=== PATIENT | male | born 1960 | race Caucasian/White ===

== ENCOUNTER 2024-05-13 14:29 | Emergency (ER) | payer MEDICARE, SELFPAY ==
[2024-05-13 14:45] VITALS: BP 142/67; PULSE 62; RESP 20; TEMP 36.8; O2SAT 92; BMI 38.0
--- NOTE | 2024-05-13 14:49 | ED_ITS ---
Discharge Plan Disposition Patient Disposition: Home, Self-Care Condition: Good Prescriptions Prescriptions: New amlodipine 5 mg tablet 5 mg PO DAILY Qty: 30 0RF mupirocin 2 % ointment 1 applic topical BID Qty: 22 0RF No Action amlodipine 5 mg tablet 5 mg PO DAILY Patient Comments: TAKE 1 DAILY Referrals Follow up/Referrals: Swapna Aguilera MD [Referring] - See instructions Provider,MD Jackie [Primary Care Provider] - See instructions Activity Restrictions/Add. Instructions Additional Instructions/Restrictions: clean site with 1/2 vinegar and 1/2 water twice daily. Keep site clean and dry. Make appointment with dermatology. Clinical Impressions Clinical Impression: Hypertension, Skin lesion of right external ear Instructions Patient Instructions: Essential Hypertension Discharge ED Provider: Nilam Andrew [facility] [place] HPI General Stated complaint: Out of BP med, RT ear pain Time Seen by Provider: 05/13/24 14:48 History of Present Illness Provider Complaint: Pt reports that he has had right ear pain and a lesion for the past 2 months. He states that the pain is bad and the site has not healed even with taking treatment for shingles. He also states that he is out of blood pressure medication. He is from [place] and has been up here buying property and ran out of medication. He states that he has refills, but is unable to get any while here. Related Data Home Medications Medication Instructions Recorded Confirmed amlodipine 5 mg tablet 5 mg PO DAILY 05/13/24 05/13/24 Previous Rx's Medication Instructions Recorded amlodipine 5 mg tablet 5 mg PO DAILY #30 tabs 05/13/24 mupirocin 2 % topical ointment 1 applic topical BID #22 grams 05/13/24 Allergies Allergy/AdvReac Type Severity Reaction Status Date / Time No Known Allergies Allergy Verified 05/13/24 15:05 [facility] Disclaimer: The information contained in this section may have been updated after the patient was seen, as this information can be updated by other users. Medical History (Updated 05/13/24 @ 15:08 by Nilam Andrew APRN) Hypertension Social History Smoking Status: Current every day smoker alcohol intake: current current occupational status: previously employed Travel in the last 8 weeks: Inside the [place] ROS Obtained: Yes All systems reviewed & no additional complaints except as documented Constitutional Constitutional: Reports system reviewed and no additional complaints, except as documented Eyes Eyes: Reports system reviewed and no additional complaints, except as documented ENT Ears, Nose, Mouth, and Throat: Reports system reviewed and no additional complaints, except as documented, Reports ear discharge and Reports otalgia Comments: Pt has been [place] all of his life. Cardiovascular Cardiovascular: Reports system reviewed and no additional complaints, except as documented and Reports lightheadedness Respiratory Respiratory: Reports system reviewed and no additional complaints, except as documented Gastrointestinal Gastrointestingal: Reports system reviewed and no additional complaints, except as documented Genitourinary Male Genitourinary: Reports system reviewed and no additional complaints, except as documented Musculoskeletal Musculoskeletal: Reports system reviewed and no additional complaints, except as documented Integumentary/Breasts Skin/Breast: Reports system reviewed and no additional complaints, except as documented Neurologic Neurologic: Reports system reviewed and no additional complaints, except as documented Endocrine Endocrine: Reports system reviewed and no additional complaints, except as documented Hematologic/Lymphatic Henatologic/Lymphatic: Reports system reviewed and no additional complaints, except as documented Allergic/Immunologic Allergic/Immunologic: Reports system reviewed and no additional complaints, except as documented Physical Exam General General appearance: alert and in no apparent distress Head Head exam: atraumatic and normocephalic Eye Eye exam: Present normal appearance Expanded ENT Exam External ear exam: Present pain with movement and other (right auricular mass noted. Dried blood around site.) Nasal speculum exam: Bilateral: normal Mouth exam: Present normal external inspection Teeth exam: Present normal inspection Throat exam: Present normal inspection Neck Neck exam: Present normal inspection Chest Chest inspection: Present normal inspection and symmetric chest wall rise Respiratory Respiratory exam: Present normal lung sounds bilaterally Cardiovascular Cardiovascular exam: Present regular rate and normal rhythm Abdominal Exam Abdominal exam: Present soft and normal bowel sounds Extremities Exam Extremities exam: Present normal inspection Back Exam Back exam: Present normal inspection Neurological Exam Neurological exam: Present alert and oriented X3 Psychiatric Psychiatric exam: Present normal affect and normal mood Skin Skin exam: Present warm, dry and intact Lymphatic Lymphatic Findings: no adenopathy Medical Decision Making Rosas Inquiry Pt receiving controlled substance: No Rosas was queried for this patient: No
[2024-05-13 15:10] VITALS: BP 142/67; PULSE 62; RESP 20; TEMP 36.8; O2SAT 92
== END 2024-05-13 15:17 | disposition home or self-care (01) ==
PROVIDERS: Emergency Provider Nurse Practitioner Family
DX: H61.91 Disorder of right external ear, unspecified (principal); I10 Essential (primary) hypertension; F17.210 Nicotine dependence, cigarettes, uncomplicated
CPT/HCPCS: 99204; 99212; G0463

== ENCOUNTER 2025-01-02 07:09 | Inpatient (IN) | payer MEDICARE, SELFPAY ==
[2025-01-02] VITALS (13 sets, daily range): BP systolic 107–154; BP diastolic 54–80; PULSE 71–105; RESP 18–36; TEMP 36.7–37.4; O2SAT 90–95; BMI 39.5
--- NOTE | 2025-01-02 07:05 | ECG_ITS ---
APPROVED REPORT Exam: Resting ECG HR:92 bpm ECG Measurements Heart Rate 92 AXES QRSd 88 QRS 79 QT 361 T 80 QTc 411 Conclusion Largely nondiagnostic exam. No obvious acute ischemic change Electronically signed by : BOLA AGUILERA, 01/03/2025 13:17:03
--- NOTE | 2025-01-02 07:18 | XR_ITS ---
PROCEDURE INFORMATION: Exam: XR Chest Exam date and time: 01/02/2025 7:36 AM Age: 64 years old Clinical indication: Shortness of breath; Additional info: SOA, prod cough TECHNIQUE: Imaging protocol: Radiologic exam of the chest. Views: 1 view. COMPARISON: No relevant prior studies available. FINDINGS: Lungs: Unremarkable. No consolidation. Pleural spaces: Unremarkable. No pleural effusion. No pneumothorax. Heart/Mediastinum: Unremarkable. No cardiomegaly. Bones/joints: Anterior cervical fusion . Degenerative changes in the thoracic spine IMPRESSION: No acute process
--- NOTE | 2025-01-02 07:38 | ED_ITS ---
Discharge Plan Disposition Patient Disposition: Admitted Chief Complaint: Shortness of Breath/Dyspnea Clinical Impressions Clinical Impression: Acute exacerbation of chronic obstructive pulmonary disease, Encounter for screening involving social determinants of health (SDoH) Discharge ED Provider: Kenny Nichole General Chief Complaint: Shortness of Breath/Dyspnea Stated Complaint: SOA Time Seen by Provider: 01/02/25 07:09 Mode of Arrival: EMS Source of Information: Patient Limitations: No Limitations Description of Symptoms (Recalled from ER Triage Doc. by RN): pt states he has been sick x4d. pt c/o SOA, nonproductive cough, ALVAREZ, dark/cloudy urine, lower back pain, and umbilical abd pain. pt states the ALVAREZ is sharp in nature and 10/10. pt reports the umbilical pain is 4/10. pt reports the lower back pain is 7/10. EMS reports the pt was 88% on RA on their arrival. pt is not on oxygen at baseline. pt received 1 duo neb in route. History of Present Illness HPI narrative: Please note that above description of symptoms, in this electronic medical record under categorization of recalled from ER triage doctor by RN are reflective of an initial nursing assessment, however, is not reflective of my full history and physical exam that was personally taken and clarified. Consequentially, this preceding description of symptoms, which may include the patient's categorized chief complaint in the EMR, do not reflect my personal clinical impression, and the ultimate description of history of present illness and patient stated complaints should be deferred to this section of the note. Unless stated otherwise or congruent with this section of the note, additional signs, symptoms, or incongruence should be interpreted as inaccurate with my clinical impression. Related Data Previous Rx's ?Medication ?Instructions ?Recorded amlodipine 5 mg tablet 5 mg PO DAILY 30 days #30 tabs 08/04/24 Allergies Allergy/AdvReac Type Severity Reaction Status Date / Time No Known Allergies Allergy Verified 01/02/25 07:22 [facility] Disclaimer: The information contained in this section may have been updated after the patient was seen, as this information can be updated by other users. Medical History (Updated 01/02/25 @ 09:39 by Kenny Nichole MD) Skin lesion of left ear History of skin cancer Meningitis Skin lesion of right external ear Hypertension Surgical History History of lymph node excision History of total splenectomy History of back surgery Social History (Updated 01/02/25 @ 09:33 by Golden Wilhelm RN) Smoking Status: Never smoker second hand exposure: No alcohol intake: current substance use type: marijuana current occupational status: previously employed Travel in the last 8 weeks: Inside the [place] housing: house lives independently: Yes marital status: single Have you lived/traveled outside US in past 30 days?: No Contact w/someone who lives/traveled outside US past 30 days?: No Exposure to someone with infectious disease in past 14 days?: No Do you have a fever (greater than 100.4 F or 38 C)?: No Have you tested positive for COVID-19: No Exposed to someone with COVID-19 in past 14 days?: No Do you have a sore throat?: No Do you have a cough?: No Do you have any weakness?: No Do you have any diarrhea?: No Are you experiencing any unusual bleeding?: No Do you have any muscle aches/pain?: No Do you have any abdominal pain?: No Are you experiencing loss of taste or smell?: No Other Medical History Have you received the Pneumonia Vaccine: Yes ROS Obtained: Yes All systems reviewed & no additional complaints except as documented Physical Exam General General appearance: alert, in distress and obese Neck Neck exam: Present trachea midline Chest Chest inspection: Present normal inspection and symmetric chest wall rise Respiratory Respiratory exam: Present respiratory distress, wheezes, accessory muscle use, prolonged expiratory phase and other (Grunting, speaking in partial sentences, tachypneic); Absent stridor Cardiovascular Cardiovascular exam: Present regular rate, normal rhythm and other (Pulses equal and symmetric in upper and lower extremities) Extremities Exam Extremities exam: Absent edema Neurological Exam Neurological exam: Present alert, oriented X3 and CN II-XII intact Skin Skin exam: Present warm and dry; Absent cyanosis, diaphoresis or pallor HEART Score HEART Score HEART Score assessment performed?: Yes History (anamnesis): Slightly suspicious ECG: Non-specific disturbance Age: >65 years Risk factors: 1-2 risk factors Troponin: </= normal limit HEART Score: 4 Procedures Limited Ultrasound Indication:: Limited cardiac ultrasound Indication: Shortness of breath, tachycardia, diaphoresis Identified cardiac views: -Cardiac parasternal long axis -Cardiac parasternal short axis -Cardiac apical four-chamber Findings: -Cardiac activity present -Gross wall motion normal -Pericardial effusion absent -Right heart strain absent Impression: -Normal cardiac ultrasound with normal systolic function Images were saved to permanent archive The study was technically adequate CPT: 60746 This study was performed by me, and I personally interpreted all images/videos. Based on my clinical judgement, these images were adequate and did not necessitate further imaging Critical Care Critical Care Time Critical Care Time: Yes (Respiratory) Attestation: On 01/02/25, the high probability of a clinically significant, sudden or life threatening deterioration of the following system(s) required my full and direct attention, intervention and personal management. The time I documented below is in addition to time spent performing reported procedures but includes the following listed in this critical care notation. Total Time Total Critical Care Time: 45 Medical Decision Making Medical Records Medical records reviewed: Yes I reviewed the patient's medical records. Rosas Inquiry Pt receiving controlled substance: No Rosas was queried for this patient: No Vital Signs Vital Signs: 01/02/25 07:12 01/02/25 07:36 01/02/25 08:01 Temperature 98.8 F Temperature Source Oral Pulse Rate 86 99 H Pulse Rate [Left] 74 Respiratory Rate 32 H 26 H 34 H Blood Pressure 141/68 H 140/79 Blood Pressure [Right Arm] 150/80 H Blood Pressure Mean [Right Arm] 103 Blood Pressure Source [Right Arm] Automatic Cuff Blood Pressure Position [Right Arm] Sitting 02 Sat by Pulse Oximetry 94 L 94 L 92 L Oxygen Delivery Method Nasal Cannula Nasal Cannula Nasal Cannula Oxygen Flow Rate (LPM) 3 2 2 01/02/25 08:30 01/02/25 09:01 Temperature Temperature Source Pulse Rate 96 H 105 H Pulse Rate [Left] Respiratory Rate 27 H 36 H Blood Pressure 153/76 H 154/73 H Blood Pressure [Right Arm] Blood Pressure Mean [Right Arm] Blood Pressure Source [Right Arm] Blood Pressure Position [Right Arm] 02 Sat by Pulse Oximetry 91 L 95 Oxygen Delivery Method Nasal Cannula Nasal Cannula Oxygen Flow Rate (LPM) 1 2 Lab Data Labs: Lab Results 01/02/25 07:36: WBC 12.8 H, RBC 5.06, Hgb 15.8, Hct 48.1, MCV 95.1 H, MCH 31.2, MCHC 32.8, RDW 13.0, Plt Count 373, MPV 9.3, Neut % (Auto) 75.2, Lymph % (Auto) 7.5 L, Haines % (Auto) 16.3 H, Eos % (Auto) 0.2, Baso % (Auto) 0.4, Neut # (Auto) 9.7 H, Lymph # (Auto) 1.0, Haines # (Auto) 2.1 H, Eos # (Auto) 0.0, Baso # (Auto) 0.1, PT 10.4, INR 0.94, APTT 27.6, D-Dimer 0.39, Hemoglobin A1c 6.4 H, Magnesium 1.9, NT-Pro-B Natriuret Pep 285 H, Triglycerides 52, Cholesterol 163, LDL Cholesterol Direct 110.48, VLDL Cholesterol 10, HDL Cholesterol 30 L, C holesterol/HDL Ratio 5.4 H, HCV Ab KRYSTINA w/Rflx PCR Qn Negative, HIV Ag/Ab Combo Qual Negative 01/02/25 07:40: VBG pH 7.38, VBG pCO2 41.4, VBG pO2 48.5 H, VBG HCO3 24.1, VBG Total CO2 25.4, VBG O2 Saturation 84.9 H, VBG Base Excess -1.0, VBG Lactic Acid 1.3 01/02/25 07:36 01/02/25 Unknown Response Orders (Tests/Meds): ED MEDICATIONS Discontinued Medications Generic Name Dose Route Start Last Admin Trade Name Khurramq PRN Reason Stop Dose Admin Albuterol/Ipratropium 9 ml 01/02/25 07:18 01/02/25 07:41 Ipratropium/Albuterol 3 Ml Neb IH 01/02/25 07:19 9 ml ONCE ONE Administration Magnesium Sulfate 2 gm in 50 mls @ 50 mls/hr 01/02/25 07:18 01/02/25 07:42 Magnesium Sulfate 2gm/50ml Premix IV 01/02/25 08:17 50 mls/hr ONCE ONE Administration Methocarbamol 1,500 mg 01/02/25 08:16 01/02/25 08:23 Methocarbamol 500mg Tablet PO 01/02/25 08:17 1,500 mg ONCE ONE Administration Methylprednisolone Sodium Succinate 125 mg 01/02/25 07:18 01/02/25 07:42 Methylprednisolone Sod Succ 125mg Vial IV 01/02/25 07:19 125 mg ONCE ONE Administration ORDERS Category Date Time Status POCUS Point of Care (ER Only) Stat Exams 01/02/25 08:30 Ordered XR chest portable Stat Exams 01/02/25 07:18 Completed Complete Blood Count Auto Diff Stat Lab 01/02/25 07:36 Completed Comprehensive Metabolic Panel Stat Lab 01/02/25 Completed D-Dimer Stat Lab 01/02/25 07:36 Completed HIV Combo Stat Lab 01/02/25 07:36 Completed Hemoglobin A1C Stat Lab 01/02/25 07:36 Completed Hepatitis C Ab Qual. W/ RFX Stat Lab 01/02/25 07:36 Completed Lipid Panel Stat Lab 01/02/25 07:36 Completed Magnesium Stat Lab 01/02/25 07:36 Completed NT Pro Brain Natriuretic Pep. Stat Lab 01/02/25 07:36 Completed PT INR [Prothrombin Time INR] Stat Lab 01/02/25 07:36 Completed PTT [Activated Partial Thrombo Time] Stat Lab 01/02/25 07:36 Completed Troponin I Q3H Lab 01/02/25 10:30 Ordered Troponin I Q3H Lab 01/02/25 13:30 Ordered Troponin I Stat Lab 01/02/25 Completed Blood Culture Stat Micro 01/02/25 07:21 Received Venous Blood Gas Stat RT 01/02/25 07:40 Completed MDM Narrative Medical Decision Narrative: 58 male history of hypertension and COPD not on home oxygen and not still smoking, JANELL presenting with shortness of breath and cough. Patient states that he has been feeling short of breath for the last 3 to 4 days. Started getting worse yesterday. States that he just moved from [place] a couple days prior to this. Left his CPAP machine and nebulizer machines somewhere along the move. Moved him in a house with multiple people. Multiple people in the house do smoke and he feels like this is bothering him. Has cough that is new. Cough is also newly productive of yellowish to green sputum. Intermittent fevers and chills. No chest pain, nausea, vomiting, diarrhea, neurologic deficits, or any other concerns. Called EMS to be brought to the emergency department. It should be noted the patient has multiple comorbidities which are not currently at goal care and likely complicating current clinical picture. Social determinants of health seem to be of concern. History was obtained via conversation with patient and EMS. On arrival, patient hemodynamically stable, alert, oriented x4, appropriate, GCS 15, moving all extremities spontaneously, pupils equal and reactive to light. Full physical exam performed and significant for chronically ill-appearing male who is in moderate respiratory distress. He is tachypneic, speaking in partial sentences, grunting. Bilateral diffuse expiratory wheezes with overall diminished breath sounds. Prolonged expiratory phase and accessory muscle usage, breathing through pursed lips. Cardiac exam without murmurs gallops or rubs. Pulses equal and symmetric in upper and lower extremities. No lower extremity edema. No evidence of JVD or muffled heart sounds. Differential includes COPD exacerbation, bronchitis, pneumonia, pneumothorax, PE, ACS, MD, among others. Patient was given DuoNebs, Solu-Medrol, magnesium IV for symptomatic management and correction of underlying abnormalities. Patient placed on continuous cardiac monitoring and continuous pulse ox with initial blood pressure 150/80, heart rate 74, saturation 94% on room air. Independent interpretation of EKG shows sinus rhythm 92 bpm with TN interval about 190 ms, QRS 88, QTc 411 ms. Normal axis. No obvious acute ischemic change, but with wandering baseline nondiagnostic. Workup independently interpreted and significant for leukocytosis 12.8 with neutrophilia and elevated monocytes. Patient's D-dimer negative. Other coags negative as well. VBG with pH 7.38/CO2 41/bicarb 24/lactate normal 1.3. Chemistry nonactionable. Troponin negative, BNP only mildly elevated to 85.. On independent interpretation of imaging, patient has findings consistent with cephalization of vessels. See radiology read for full review of final results. Heart score 4. Shortly thereafter, patient intermittently obstructing while sleeping. Woke up, very anxious. States that he usually sleeps with a CPAP machine, does not have 1 here. [place] that he was having palpitations. Repeat EKG sinus rhythm 81 bpm with TN interval 151, QRS 114, QTc 420 with normal axis. No acute ischemic change. On reevaluation, patient states that he is not feeling much better, although he does sound better. Still tachypneic, still grunting. JANELL CPAP machine was offered, he stated that he would appreciate having this placed here in the emergency department. Given patient does not have a safe disposition home and does not have CPAP machine, nebulizer machine, or meds/supplies to go home, social determinants of health are prohibiting emergency department discharge and I feel this would be a disservice to patient. Hospital medicine was contacted and graciously accepted patient for further definitive management, medical tune up, case management and intangible issue management. Trench Trimmer Fine disclaimer Much of this encounter note is an electronic analysis internship spoken language to printed text. Electronic analysis internship of the spoken language may permit errors. Although I have reviewed the note, some errors may still exist.
[2025-01-02] MEDS: IPRATROPIUM/ALBUTEROL 3 ML NEB 9 ML IH (07:41)
[2025-01-02] MEDS: METHYLPREDNISOLONE SOD SUCC 125MG VIAL 125 MG IV (07:42)
[2025-01-02] MEDS: MAGNESIUM SULFATE IN WATER 2 GM/50 ML PIGGYBACK IV (07:42)
[2025-01-02 07:46] LABS: Lactate Venous 1.3 mmol/L (0.4-2.0); VBG HCO3 24.1 mmol/L (23-30); VBG Oxygen Saturation 84.9 % (50-70); VBG PCO2 41.4 mmol/L (35-51); VBG PH 7.38 mmol/L (7.31-7.41); VBG PO2 48.5 mmol/L (28-40); VBG Total CO2 25.4 mmol/L (23-27)
[2025-01-02 07:47] LABS: Basophils # 0.1 K/mm3 (0-0.2); Basophils % 0.4 % (0.1-2.0); Eosinophils % 0.2 % (0.1-12.0); Hematocrit 48.1 % (42.0-52.0); Hemoglobin 15.8 g/dL (14.1-18.0); Lymphocytes % 7.5 % (10-50); Mean Corpuscular HGB Conc 32.8 g/dL (31.8-35.4); Mean Corpuscular Hemoglobin 31.2 pg (27.0-31.2); Mean Corpuscular Volume 95.1 fl (80-94); Mean Platelet Volume 9.3 fl (7.4-10.4); Monocytes # 2.1 K/mm3 (0.1-1.0); Monocytes % 16.3 % (1.7-9.3); Neutrophils # 9.7 K/mm3 (1.8-7.8); Neutrophils % 75.2 % (37.0-80.0); Platelet Count 373 K/mm3 (142-424); Red Blood Count 5.06 M/mm3 (4.60-6.20); White Blood Count 12.8 K/mm3 (4.8-10.8)
[2025-01-02 07:56] LABS: Activated Partial Thrombo Time 27.6 seconds (22.5-28.5)
[2025-01-02 07:59] LABS: Chol/HDL Ratio 5.4 (1-3.5); Cholesterol 163 mg/dl (140-200); HDL Cholesterol 30 mg/dl (40-60); Magnesium 1.9 mg/dl (1.6-2.3); Triglycerides 52 mg/dl (30-150); VLDL Cholesterol 10 mg/dL (0-40)
[2025-01-02 08:00] LABS: Alanine Aminotransferase 42 U/L (12-78); Albumin Level 4.3 g/dl (3.5-5.0); Albumin/Globulin Ratio 1.6 (1.1-1.8); Alkaline Phosphatase 104 U/L (38-126); Anion Gap 11.8 mEq/L (5-15); Aspartate Amino Transferase 39 U/L (17-59); Bilirubin,Total 0.4 mg/dl (0.2-1.3); Blood Urea Nitrogen 12 mg/dl (9-20); Calcium 8.5 mg/dl (8.4-10.2); Carbon Dioxide 29 mmol/L (22.0-30.0); Chloride 101 mmol/L (98-107); Creatinine Clearance Estimated 121 mL/min (50-200); Estimated Glomerular Filt Rate 135 ml/min (>60); GFR (African American) 163 ML/MIN (>60); Globulin 2.7 g/dL (1.3-3.2); Glucose 151 mg/dl (74-100); Potassium 3.8 mmoL/L (3.5-5.1); Sodium 138 mmol/L (136-145)
[2025-01-02 08:00] LABS: INR 0.94 (0.9-1.1); Prothrombin Time 10.4 seconds (10.1-12.5)
[2025-01-02 08:10] LABS: Direct LDL Cholesterol 110.48 mg/dL (100-129); NT Pro Brain Natriuretic Pep. 285 pg/mL (0-125)
[2025-01-02 08:15] LABS: D-Dimer 0.39 ug/mL (0.0-0.5)
[2025-01-02] MEDS: METHOCARBAMOL 500MG TABLET 1500 MG PO (08:23)
--- NOTE | 2025-01-02 08:29 | PC.NURSE ---
I rounded on the pt and gave him a cold wash cloth for his head. pt is diaphoretic and states he does not feel right. pt states he is chilling then sweating. pt is tachy at 96BPM. notified and ordered a repeat EKG. wnl. no needs voiced. call roberts in reach.
[2025-01-02 08:32] LABS: Troponin I < 0.01 ng/ml (0.00-0.034)
--- NOTE | 2025-01-02 08:32 | ECG_ITS ---
APPROVED REPORT Exam: Resting ECG HR:81 bpm ECG Measurements Heart Rate 81 AXES MT 151 P 66 QRSd 114 QRS 60 QT 382 T 66 QTc 420 Conclusion Sinus rhythm Electronically signed by : BOLA AGUILERA, 01/03/2025 13:17:41
[2025-01-02 08:44] LABS: HIV Combo NEGATIVE (Negative)
[2025-01-02 08:52] LABS: Hepatitis C Ab Qual. W/ RFX NEGATIVE (Negative)
--- NOTE | 2025-01-02 09:01 | PC.NURSE ---
johanny at bedside doing pocus
--- NOTE | 2025-01-02 09:10 | PC.NURSE ---
on phone with hospitalist
[2025-01-02 09:14] LABS: Hemoglobin A1C 6.4 % (4.0-6.0)
--- NOTE | 2025-01-02 09:16 | PC.NURSE ---
spoke with manager warehouse for bed placement
--- NOTE | 2025-01-02 09:34 | PC.NURSE ---
report called to luís on second floor
--- NOTE | 2025-01-02 09:59 | PC.NURSE ---
pt arrived on the floor by wc from the er
--- NOTE | 2025-01-02 11:07 | HMH.PHAINT1 ---
Pharmacy Intervention Comments: MEDICATION RECONCILIATION COMPLETE USING EXTERNAL PHARMACY FILL HISTORY.
--- NOTE | 2025-01-02 13:04 | P.HP_ITS ---
History of Present Illness *Admission Date: 01/02/25 *Reason for visit:: Shortness of breath *History of present illness: Vincent Jeter is a 64-year-old male with a medical history significant for COPD on room air, sleep apnea (formerly on CPAP), hypertension who presents with progressive shortness of breath and cough. He states he recently moved from [place] to [place] to live close to his best friend about a week ago. Prior to that, he had been living out of his truck in [place] for 2 years. He states his cough is mostly nonproductive, and used to be a former smoker but no longer. Denies chest pain, abdominal pain, urinary symptoms, but endorses chills. He used to wear a CPAP for sleep apnea many years ago. Currently requiring 2 L nasal cannula, new requirement. Workup in the ED WBC 12.8, unremarkable VBG, BNP 285, CXR not showing acute findings. He had diffuse wheezing throughout, tachypnea, increased work of breathing and was given breathing treatments, Solu- Medrol, azithromycin with mild improvement in symptoms. Case discussed with ED provider and decision was made to admit patient for acute hypoxic respiratory failure secondary to COPD exacerbation. [facility] Disclaimer: The information contained in this section may have been updated after the patient was seen, as this information can be updated by other users. Medical History Skin lesion of left ear History of skin cancer Meningitis Skin lesion of right external ear Hypertension Surgical History History of lymph node excision History of total splenectomy History of back surgery Family History (Updated 01/02/25 @ 10:32 by Adriane Chowdary RN) Other No significant family history Social History (Updated 01/02/25 @ 10:29 by Adriane Chowdary RN) Smoking Status: Never smoker second hand exposure: No alcohol intake: never substance use type: marijuana current occupational status: disabled Travel in the last 8 weeks: [place] house lives independently: Yes marital status: Have you lived/traveled outside US in past 30 days?: No Contact w/someone who lives/traveled outside US past 30 days?: No Exposure to someone with infectious disease in past 14 days?: No Do you have a fever (greater than 100.4 F or 38 C)?: No Have you tested positive for COVID-19: No Exposed to someone with COVID-19 in past 14 days?: No Do you have a sore throat?: No Do you have a cough?: Yes Do you have any weakness?: No Are you experiencing any nausea/vomitting?: No Do you have any diarrhea?: No Are you experiencing any unusual bleeding?: No Do you have any muscle aches/pain?: No Do you have any abdominal pain?: No Are you experiencing loss of taste or smell?: No Other Medical History Have you received the Flu Vaccine for this season: No Have you received the Pneumonia Vaccine: Yes Meds Home Medications and Allergies Home Medications ?Medication ?Instructions ?Recorded ?Confirmed ?Type amlodipine 5 mg tablet 5 mg PO DAILY 30 days #30 tabs 08/04/24 01/02/25 Rx New Prescriptions to Start Prescriptions: Allergies Allergy/AdvReac Type Severity Reaction Status Date / Time No Known Allergies Allergy Verified 01/02/25 10:16 Exam Data for Last 24 hours Vital signs and Labs for Last 24 Hours: Temp Pulse Resp BP Pulse Ox O2 Del Method O2 Flow Rate 98.8 F 105 H 36 H 154/73 H 92 L Nasal Cannula 2 01/02/25 09:49 01/02/25 09:49 01/02/25 09:49 01/02/25 09:49 01/02/25 09:28 01/02/25 11:00 01/02/25 11:00 Laboratory Results - last 24 hr 01/02/25 07:36: WBC 12.8 H, RBC 5.06, Hgb 15.8, Hct 48.1, MCV 95.1 H, MCH 31.2, MCHC 32.8, RDW 13.0, Plt Count 373, MPV 9.3, Neut % (Auto) 75.2, Lymph % (Auto) 7.5 L, Bath % (Auto) 16.3 H, Eos % (Auto) 0.2, Baso % (Auto) 0.4, Neut # (Auto) 9.7 H, Lymph # (Auto) 1.0, Bath # (Auto) 2.1 H, Eos # (Auto) 0.0, Baso # (Auto) 0.1, PT 10.4, INR 0.94, APTT 27.6, D-Dimer 0.39, Hemoglobin A1c 6.4 H, Magnesium 1.9, NT-Pro-B Natriuret Pep 285 H, Triglycerides 52, Cholesterol 163, LDL Cholesterol Direct 110.48, VLDL Cholesterol 10, HDL Cholesterol 30 L, Cholesterol/HDL Ratio 5.4 H, HCV Ab KRYSTINA w/Rflx PCR Qn Negative, HIV Ag/Ab Combo Qual Negative 01/02/25 07:40: VBG pH 7.38, VBG pCO2 41.4, VBG pO2 48.5 H, VBG HCO3 24.1, VBG Total CO2 25.4, VBG O2 Saturation 84.9 H, VBG Base Excess -1.0, VBG Lactic Acid 1.3 01/02/25 : Sodium 138, Potassium 3.8, Chloride 101, Carbon Dioxide 29, Anion Gap 11.8, BUN 12, Creatinine 0.60 L, Estimated Creat Clear 121, Estimated GFR 135, Est GFR ( Amer) 163, Glucose 151 H, Calcium 8.5, Total Bilirubin 0.4, AST 39, ALT 42, Alkaline Phosphatase 104, Troponin I < 0.01, Total Protein 7.0, Albumin 4.3, Globulin 2.7, Albumin/Globulin Ratio 1.6 I & O for Last 24 hours: Intake & Output 12/30/24 12/31/24 01/01/25 01/02/25 23:59 23:59 23:59 23:59 Weight 117.934 kg Constitutional Constitutional: no acute distress and obese *Routine HEENT Exam Head: Present normocephalic Eye: Present EOMI and PERRL ENT: Present mucous membranes moist *Routine Neck Exam Neck: Present supple; Absent lymphadenopathy *Routine Respiratory Exam Respiratory: Present wheezes and diminished air movement; Absent CTA bilaterally *Routine Cardiovascular Exam Cardiovascular: Present RRR *Routine Abdominal Exam Abdominal: Present soft and normoactive bowel sounds; Absent tenderness *Routine Rectal Exam Rectal:: deferred *Routine Genitalia Exam Genitalia:: deferred *Routine Extremities Exam Extremities: Absent cyanosis, clubbing or edema *Routine Skin Exam Skin: Present warm; Absent rash *Routine Neurological Exam Neurological: Present alert and oriented X3 Assessment and Plan *Assessment and plan (1) Acute exacerbation of chronic obstructive pulmonary disease: Status: Acute Category: Medical Code(s): J44.1 - Chronic obstructive pulmonary disease with (acute) exacerbation Plan Vincent Jeter is a 64-year-old male with a medical history significant for COPD on room air, sleep apnea (formerly on CPAP), hypertension who presents with progressive shortness of breath and cough. He states he recently moved from [place] to [place] to live close to his best friend about a week ago. Prior to that, he had been living out of his truck in [place] for 2 years. He states his cough is mostly nonproductive, and used to be a former smoker but no longer. Denies chest pain, abdominal pain, urinary symptoms, but endorses chills. He used to wear a CPAP for sleep apnea many years ago. Currently requiring 2 L nasal cannula, new requirement. Workup in the ED WBC 12.8, unremarkable VBG, BNP 285, CXR not showing acute findings. He had diffuse wheezing throughout, tachypnea, increased work of breathing and was given breathing treatments, Solu- Medrol, azithromycin with mild improvement in symptoms. Case discussed with ED provider and decision was made to admit patient for acute hypoxic respiratory failure secondary to COPD exacerbation. #Acute hypoxic respiratory failure #COPD exacerbation ? Progressive shortness of breath, intermittently productive cough. Former smoker. ? CXR not showing acute findings. Respiratory panel pending. ? DuoNebs every 6 hours, Pulmicort twice daily. ? Azithromycin day 12/05. ? Prednisone 40 mg day 2/5 starting tomorrow. IV Solu-Medrol given in the ED. ? Follow-up respiratory panel. ? Pulmonology consulted to establish care. Will need a maintenance inhaler on discharge. #History of sleep apnea #Suspected obesity hypoventilation syndrome ? Had been on CPAP many years ago, it stopped working and patient was lost to follow-up. ? Would benefit from overnight pulse oximetry testing. Otherwise, would benefit from outpatient sleep study. #Hypertension ? Resume home amlodipine 5 mg. Full code DVT prophylaxis: Lovenox 40 mg
[2025-01-02 14:23] LABS: Troponin I < 0.01 ng/ml (0.00-0.034)
[2025-01-02] MEDS: AMLODIPINE 5MG TABLET 5 MG PO (14:33)
[2025-01-02] MEDS: AZITHROMYCIN 500 MG in 0.9 % SODIUM CHLORIDE 250 ML 250 MG IV (14:33)
[2025-01-02] MEDS: ACETAMINOPHEN 325MG TAB 650 MG PO ×2 (14:33→22:43)
[2025-01-02 14:45] LABS: Troponin I < 0.01 ng/ml (0.00-0.034)
[2025-01-02] MEDS: IPRATROPIUM/ALBUTEROL 3 ML NEB IH ×3 (14:50→23:06)
[2025-01-02 15:27] LABS: Adenovirus,PCR Not Detected (NotDetected); Bordetella Pertussis Not Detected (NotDetected); Chlamydophila Pneumoniae, PCR Not Detected (NotDetected); Coronavirus 19, PCR Not Detected (NotDetected); Coronavirus 229E Not Detected (NotDetected); Coronavirus NL63 Not Detected (NotDetected); Coronavirus OC43 Not Detected (NotDetected); Coronovirus HKU1,PCR Not Detected (NotDetected); Human Metapneumovirus Not Detected (NotDetected); Influenza A, PCR Not Detected (NotDetected); Influenza AH1, PCR Not Detected (NotDetected); Influenza AH3,PCR Not Detected (NotDetected); Influenza B, PCR Not Detected (NotDetected); Mycoplasma Pneumoniae, PCR Not Detected (NotDetected); Parainfluenza 1, PCR Not Detected (NotDetected); Parainfluenza 2, PCR Not Detected (NotDetected); Parainfluenza 3, PCR Not Detected (NotDetected); Parainfluenza 4, PCR Not Detected (NotDetected); Respiratory Syncytial Virus Not Detected (NotDetected); Rhinovirus/Enterovirus Not Detected (NotDetected)
[2025-01-02] MEDS: KETOROLAC 30MG/ML VIAL 30 MG IM (15:30)
[2025-01-02 15:46] LABS: POC Glucose,Bedside 174 (70-110)
[2025-01-02] MEDS: humaLOG 100 UNITS/ML 10ML VIAL (SSI) SUBCUT (16:48)
[2025-01-02 18:25] LABS: Influenza AH1, 2009 Detected (NotDetected)
[2025-01-02] MEDS: BUDESONIDE 0.5MG/2ML NEB 0.5 MG IH (18:42)
[2025-01-02] MEDS: OSELTAMIVIR 75MG CAPSULE 75 MG PO (21:07)
[2025-01-02 21:08] LABS: POC Glucose,Bedside 149 (70-110)
[2025-01-03] VITALS (14 sets, daily range): BP systolic 128–149; BP diastolic 68–76; PULSE 81–96; RESP 18–50; TEMP 36.4–37.2; O2SAT 91–95; BMI 35.9
[2025-01-03] MEDS: IPRATROPIUM/ALBUTEROL 3 ML NEB IH ×6 (01:37→22:37)
--- NOTE | 2025-01-03 04:12 | PC.NURSE ---
Addendum entered by Xena Hardin RN 01/03/25 05:40: Pt had repeat episode of panic and stating he could not breathe and was not getting any air. 02 sats around 89% on 3 liters/nc. 02 increased to 5 liters/nc bringing sats up to 93. RT was called and pt was placed on Venti mask and neb treatment given. Pt then began to rest and fell asleep. Call to Tashi Gaston NP to update on status with plan to continue pt on Venti mask for now Original Note: Pt is A/O X 4 and able to ambulate to BR with standby assistance. Pt has barky [employer] cough and is on 02 at 3 liters/nc currently. Earlier in the shift pt called out to state he was having a panic attack and couldn't breathe. 02 sats at 90 % at 2 liters. 02 was increased to 5 liters before sats would increase above 90% and pt would calm. PC placed to DUKE Akins to request increased freq of neb treatments. Pt did get a neb treatment and he was able to rest more comfortably. He was medicated with Tylenol for complaints of headache. FSBS at 9 pm was 149. Pt has been unkind to staff several times this shift.
[2025-01-03] MEDS: BUDESONIDE 0.5MG/2ML NEB 0.5 MG IH ×2 (05:21→18:01)
[2025-01-03] MEDS: LORazepam 2MG/ML VIAL 0.5 MG IV (06:21)
[2025-01-03 06:41] LABS: POC Glucose,Bedside 112 (70-110)
[2025-01-03 07:04] LABS: Basophils % 0.3 % (0.1-2.0); Eosinophils # 0.1 K/mm3 (0.0-0.4); Eosinophils % 0.6 % (0.1-12.0); Hematocrit 47.4 % (42.0-52.0); Hemoglobin 15.3 g/dL (14.1-18.0); Lymphocytes # 1.1 K/mm3 (0.7-4.5); Lymphocytes % 7.6 % (10-50); Mean Corpuscular HGB Conc 32.3 g/dL (31.8-35.4); Mean Corpuscular Hemoglobin 30.9 pg (27.0-31.2); Mean Corpuscular Volume 95.8 fl (80-94); Mean Platelet Volume 9.4 fl (7.4-10.4); Monocytes # 2.1 K/mm3 (0.1-1.0); Monocytes % 14.7 % (1.7-9.3); Neutrophils # 10.8 K/mm3 (1.8-7.8); Neutrophils % 76.4 % (37.0-80.0); Platelet Count 361 K/mm3 (142-424); Red Blood Count 4.95 M/mm3 (4.60-6.20); Red Cell Distribution Width 13.1 % (11.5-17.5); White Blood Count 14.1 K/mm3 (4.8-10.8)
[2025-01-03 07:06] LABS: Lactate Venous 1.5 mmol/L (0.4-2.0); VBG Base Excess 3.6 mmol/L (-2.4-2.3); VBG HCO3 28.7 mmol/L (23-30); VBG PCO2 49.8 mmol/L (35-51); VBG PH 7.38 mmol/L (7.31-7.41); VBG PO2 160.2 mmol/L (28-40); VBG Total CO2 30.3 mmol/L (23-27)
[2025-01-03 07:50] LABS: Alanine Aminotransferase 43 U/L (12-78); Albumin Level 3.7 g/dl (3.5-5.0); Albumin/Globulin Ratio 1.4 (1.1-1.8); Alkaline Phosphatase 85 U/L (38-126); Anion Gap 7.9 mEq/L (5-15); Aspartate Amino Transferase 47 U/L (17-59); Bilirubin,Total 0.2 mg/dl (0.2-1.3); Blood Urea Nitrogen 18 mg/dl (9-20); Calcium 8.2 mg/dl (8.4-10.2); Carbon Dioxide 31 mmol/L (22.0-30.0); Chloride 102 mmol/L (98-107); Creatinine Clearance Estimated 111 mL/min (50-200); Estimated Glomerular Filt Rate 135 ml/min (>60); GFR (African American) 163 ML/MIN (>60); Globulin 2.7 g/dL (1.3-3.2); Glucose 113 mg/dl (74-100); Magnesium 2.3 mg/dl (1.6-2.3); Potassium 3.9 mmoL/L (3.5-5.1); Sodium 137 mmol/L (136-145); Total Protein,Serum 6.4 g/dl (6.3-8.2)
[2025-01-03 09:02] LABS: Free T4 (Free Thyroxine) 1.15 ng/dl (0.78-2.19)
[2025-01-03 09:20] LABS: Thyroid Stimulating Hormone 0.08 uIU/mL (0.465-4.68)
[2025-01-03] MEDS: BISACODYL 5MG TABLET 10 MG PO (09:21)
[2025-01-03] MEDS: ENOXAPARIN 40MG/0.4ML SYRINGE 40 MG SUBCUT (09:21)
[2025-01-03] MEDS: AMLODIPINE 5MG TABLET 5 MG PO (09:21)
[2025-01-03] MEDS: OSELTAMIVIR 75MG CAPSULE 75 MG PO ×2 (09:21→20:43)
[2025-01-03] MEDS: POLYETHYLENE GLYCOL 3350 17 GM PACKET PO (09:22)
[2025-01-03] MEDS: METHYLPREDNISOLONE SOD SUCC 40MG VIAL 40 MG IV ×2 (09:23→20:43)
[2025-01-03 09:45] LABS: ABG Base Excess 0.7 mmol/L (-2.4-2.3); ABG Oxygen Saturation 96 % (90-100); ABG PH 7.31 mmol/L (7.35-7.45); ABG PO2 80.5 mmhg (80-100); ABG TCO2 28.7 mmhg (23-27)
[2025-01-03 09:48] LABS: Allen's Test Acceptable; Oxygen 6 LPM NC %; Source Left Radial
--- NOTE | 2025-01-03 09:55 | P.CONS_ITS ---
History of Present Illness History of present illness: Mr. Jeter is a 64-year-old male with reported history of COPD sleep apnea hypertension presented to the ER with worsening respiratory distress and pulmonary was called for further evaluation and management. [facility] Disclaimer: The information contained in this section may have been updated after the patient was seen, as this information can be updated by other users. Medical History (Updated 01/03/25 @ 11:40 by Josiah Cruz MD) Pneumonia Acute and chronic respiratory failure with hypercapnia Influenza A (H1N1) Skin lesion of left ear History of skin cancer Meningitis Skin lesion of right external ear Hypertension Surgical History History of lymph node excision History of total splenectomy History of back surgery Family History (Updated 01/02/25 @ 10:32 by Adriane Chowdary RN) Other No significant family history Social History (Updated 01/02/25 @ 10:29 by Adriane Chowdary RN) Smoking Status: Never smoker second hand exposure: No alcohol intake: never substance use type: marijuana current occupational status: disabled Travel in the last 8 weeks: [place] house lives independently: Yes marital status: Have you lived/traveled outside US in past 30 days?: No Contact w/someone who lives/traveled outside US past 30 days?: No Exposure to someone with infectious disease in past 14 days?: No Do you have a fever (greater than 100.4 F or 38 C)?: No Have you tested positive for COVID-19: No Exposed to someone with COVID-19 in past 14 days?: No Do you have a sore throat?: No Do you have a cough?: Yes Do you have any weakness?: No Are you experiencing any nausea/vomitting?: No Do you have any diarrhea?: No Are you experiencing any unusual bleeding?: No Do you have any muscle aches/pain?: No Do you have any abdominal pain?: No Are you experiencing loss of taste or smell?: No Review of Systems Constitutional Constitutional: Reports anorexia, Reports body ache(s), Reports fatigue, Reports lethargy and Reports weakness Eyes Eyes: Denies eye discharge, Denies dry eyes, Denies irritation and Denies itchy eyes ENT Ears, Nose, Mouth, and Throat: Denies epistaxis, Denies facial pain, Denies lip swelling and Denies throat swelling *Cardiovascular Cardiovascular: Reports dyspnea and Reports dyspnea on exertion *Respiratory Respiratory: Reports chest congestion, Reports cough, Reports dyspnea, Reports dyspnea on exertion, Denies excessive phlegm production, Denies hemoptysis, Denies pain on inspiration, Denies pain with cough, Reports stridor and Reports wheezing *Gastrointestinal Gastrointestinal: Denies abdominal pain, Denies belching and Denies cramping *Musculoskeletal Musculoskeletal: Reports back pain, Reports myalgias and Reports other (No small joint swelling or Pain) *Neurologic Neurologic: Reports weakness Psychiatric Psychiatric: Denies homicidal ideation and Denies suicidal ideation Endocrine Endocrine: Reports fatigue and Denies heat intolerance Hematologic/Lymphatic Hematologic/Lymphatic: Denies easy bleeding and Denies lymphadenopathy Allergic/Immunologic Allergic/Immunologic: Denies itchy eyes, Denies lip swelling, Denies throat swelling and Reports wheezing Pulmonology Exam Inpatient Vital signs and Labs for Last 24 Hours: Temp Pulse Resp BP Pulse Ox O2 Del Method O2 Flow Rate 98.9 F 95 H 22 147/70 H 93 L Nasal Cannula 5 01/03/25 08:00 01/03/25 09:41 01/03/25 08:00 01/03/25 08:00 01/03/25 09:41 01/03/25 09:41 01/03/25 09:41 FiO2 50 01/03/25 05:25 Laboratory Results - last 24 hr 01/02/25 10:45: Troponin I < 0.01 01/02/25 13:25: Troponin I < 0.01 01/02/25 15:20: Chlamy pneumoniae PCR Not detected, Adenovirus (PCR) Not detected, B. pertussis DNA (PCR) Not detected, Coronavirus OC43 (PCR) Not detected, Coronavirus HKU1 (PCR) Not detected, Coronavirus 229E (PCR) Not detected, SARS-CoV-2 (PCR) Not detected, Coronavirus NL63 (PCR) Not detected, Human Metapneumovir PCR Not detected, Influenza A (H1) PCR Not detected, Influ A (H1N1/09) PCR Detected A, Influenza A (H3) PCR Not detected, Influenza Type A (PCR) Not detected, Influenza Type B (PCR) Not detected, M. pneumoniae (PCR) Not detected, Parainfluenza 1 (PCR) Not detected, Parainfluenza 2 (PCR) Not detected, Parainfluenza 3 (PCR) Not detected, Parainfluenza 4 (PCR) Not detected, RSV (PCR) Not detected, Entero/Rhino (PCR) Not detected 01/02/25 15:33: POC Glucose 174 H 01/02/25 20:59: POC Glucose 149 H 01/03/25 06:00: VBG pH 7.38, VBG pCO2 49.8, VBG pO2 160.2 H, VBG HCO3 28.7, VBG Total CO2 30.3 H, VBG O2 Saturation 99.0 H, VBG Base Excess 3.6 H, VBG Lactic Acid 1.5 01/03/25 06:13: POC Glucose 112 H 01/03/25 06:45: WBC 14.1 H, RBC 4.95, Hgb 15.3, Hct 47.4, MCV 95.8 H, MCH 30.9, MCHC 32.3, RDW 13.1, Plt Count 361, MPV 9.4, Neut % (Auto) 76.4, Lymph % (Auto) 7.6 L, Morrow % (Auto) 14.7 H, Eos % (Auto) 0.6, Baso % (Auto) 0.3, Neut # (Auto) 10.8 H, Lymph # (Auto) 1.1, Morrow # (Auto) 2.1 H, Eos # (Auto) 0.1, Baso # (Auto) 0.0, Sodium 137, Potassium 3.9, Chloride 102, Carbon Dioxide 31 H, Anion Gap 7.9, BUN 18 D, Creatinine 0.60 L, Estimated Creat Clear 111, Estimated GFR 135, Est GFR ( Amer) 163, Glucose 113 H D, Calcium 8.2 L, Magnesium 2.3 D, Total Bilirubin 0.2, AST 47, ALT 43, Alkaline Phosphatase 85, Total Protein 6.4, Albumin 3.7 D, Globulin 2.7, Albumin/Globulin Ratio 1.4, TSH 0.08 L, Free T4 1.15 01/03/25 09:26: Specimen Source Left radial, O2 % 6 lpm nc, ABG pH 7.31 L, ABG pCO2 55.0 H, ABG pO2 80.5, ABG HCO3 27.0 H, ABG Total CO2 28.7 H, ABG O2 Saturation 96, ABG Base Excess 0.7, Eldon Test Acceptable I & O for Labs for Last 24 Hours: Intake & Output 12/31/24 01/01/25 01/02/25 01/03/25 23:59 23:59 23:59 23:59 Intake Total 300 / 300 0 / 0 Output Total 0 / 0 0 / 0 Balance 300 / 300 0 / 0 Weight 260 lb 237 lb 1.6 oz Microbiology Reports for the Last 24 Hours: Microbiology 01/02/25 07:21 Blood Blood Culture - Preliminary NO GROWTH AFTER 24 HOURS 01/02/25 07:21 Blood Blood Culture - Preliminary NO GROWTH AFTER 24 HOURS Constitutional: Present severe distress Head: Present normocephalic and atraumatic ENT: Present normal exam, normal oropharynx and mucous membranes moist Neck: Present normal inspection and full ROM Respiratory: Present respiratory distress, rhonchi, wheezes and diminished air movement; Absent able to speak in complete sentences Cardiac: Present S1/S2, Tachycardia and radial pulses present GI: Present soft and distention; Absent tenderness or guarding Skin: Present intact; Absent cyanosis or jaundice Neuro: Present alert, awake and oriented x 3 Extremities: Present normal inspection; Absent clubbing or cyanosis Psychiatric: Present normal affect and cooperative Meds Home Medications and Allergies Home Medications ?Medication ?Instructions ?Recorded ?Confirmed ?Type amlodipine 5 mg tablet 5 mg PO DAILY 30 days #30 tabs 08/04/24 01/02/25 Rx New Prescriptions to Start Prescriptions: Allergies Allergy/AdvReac Type Severity Reaction Status Date / Time No Known Allergies Allergy Verified 01/02/25 10:16 Results Laboratory Findings 01/03/25 06:45 01/03/25 06:45 ABG ABG pH 7.31 mmol/L (7.35-7.45) L 01/03/25 09:26 ABG pCO2 55.0 mmhg (35.0-45.0) H 01/03/25 09:26 ABG pO2 80.5 mmhg (80-100) 01/03/25 09:26 ABG O2 Saturation 96 % (90-100) 01/03/25 09:26 PT/INR, D-dimer PT 10.4 seconds (10.1-12.5) 01/02/25 07:36 INR 0.94 (0.9-1.1) 01/02/25 07:36 D-Dimer 0.39 ug/mL (0.0-0.5) 01/02/25 07:36 Abnormal lab findings: Abnormal Labs 01/02/25 01/02/25 01/02/25 07:36 07:40 15:20 WBC 12.8 H MCV 95.1 H Lymph % (Auto) 7.5 L Morrow % (Auto) 16.3 H Neut # (Auto) 9.7 H Morrow # (Auto) 2.1 H ABG pH ABG pCO2 ABG HCO3 ABG Total CO2 VBG pO2 48.5 H VBG Total CO2 VBG O2 Saturation 84.9 H VBG Base Excess Carbon Dioxide Creatinine Glucose POC Glucose Hemoglobin A1c 6.4 H Calcium NT-Pro-B Natriuret Pep 285 H HDL Cholesterol 30 L Cholesterol/HDL Ratio 5.4 H TSH Influ A (H1N1) PCR Detected A 01/02/25 01/02/25 01/02/25 15:33 20:59 Unknown WBC MCV Lymph % (Auto) Morrow % (Auto) Neut # (Auto) Morrow # (Auto) ABG pH ABG pCO2 ABG HCO3 ABG Total CO2 VBG pO2 VBG Total CO2 VBG O2 Saturation VBG Base Excess Carbon Dioxide Creatinine 0.60 L Glucose 151 H POC Glucose 174 H 149 H Hemoglobin A1c Calcium NT-Pro-B Natriuret Pep HDL Cholesterol Cholesterol/HDL Ratio TSH Influ A (H1N1) PCR 01/03/25 01/03/25 01/03/25 06:00 06:13 06:45 WBC 14.1 H MCV 95.8 H Lymph % (Auto) 7.6 L Morrow % (Auto) 14.7 H Neut # (Auto) 10.8 H Morrow # (Auto) 2.1 H ABG pH ABG pCO2 ABG HCO3 ABG Total CO2 VBG pO2 160.2 H VBG Total CO2 30.3 H VBG O2 Saturation 99.0 H VBG Base Excess 3.6 H Carbon Dioxide 31 H Creatinine 0.60 L Glucose 113 H D POC Glucose 112 H Hemoglobin A1c Calcium 8.2 L NT-Pro-B Natriuret Pep HDL Cholesterol Cholesterol/HDL Ratio TSH 0.08 L Influ A (H1N1/) PCR 01/03/25 09:26 WBC MCV Lymph % (Auto) Morrow % (Auto) Neut # (Auto) Morrow # (Auto) ABG pH 7.31 L ABG pCO2 55.0 H ABG HCO3 27.0 H ABG Total CO2 28.7 H VBG pO2 VBG Total CO2 VBG O2 Saturation VBG Base Excess Carbon Dioxide Creatinine Glucose POC Glucose Hemoglobin A1c Calcium NT-Pro-B Natriuret Pep HDL Cholesterol Cholesterol/HDL Ratio TSH Influ A (H1N1/) PCR Assessment and Plan *Assessment and plan (1) Influenza A (H1N1): Status: Acute Category: Medical Code(s): J10.1 - Influenza due to other identified influenza virus with other respiratory manifestations (2) Acute and chronic respiratory failure with hypercapnia: Status: Acute Category: Medical Code(s): J96.22 - Acute and chronic respiratory failure with hypercapnia (3) Pneumonia: Status: Acute Category: Medical Code(s): J18.9 - Pneumonia, unspecified organism Plan Mr. Jeter is a 64-year-old male with reported history of COPD sleep apnea hypertension presented to the ER with worsening respiratory distress and pulmonary was called for further evaluation and management. He was prior smoker, not smoked in the last 40 years as per the patient. Not using any inhalers at baseline. Admits prior history of sleep apnea however has not been compliant as he lost his machine recently. Afebrile. Hemodynamically stable. Neutrophilic predominant leukocytosis. Respiratory viral PCR panel positive for H1 N1 influenza A. Chest x-ray upon admission bilateral upper lobe predominant patchy airspace disease left greater than right along with vascular congestion. Blood gas upon admission chronic hypercarbic respiratory failure. ABG from this morning worsening hypercarbia. Blood cultures no growth so far. Continue receiving Tamiflu and azithromycin. On examination bilateral diffuse wheezing noted. Cannot complete in full sentences. Plan: Continue BiPAP therapy currently on 21/11 with FiO2 of 35%. Follow-up with VBG DuoNebs every 4 hours along with Pulmicort every 12 scheduled Continue ceftriaxone azithromycin pending culture results Continue Tamiflu x 5 days pending clinical improvement.
--- NOTE | 2025-01-03 10:23 | SW/DCPLANNER ---
I attempted to speak w/ this patient regarding plans once medically stable for discharge. Patient stated that he recently moved to [place] from [place] to live in a cabin. Patient stated that he has a group of three gentlemen in [place] that helps care for him. Patient was extremely short of breath during my assessment and I told him I would come back this afternoon to further discuss discharge planning. Patient did express an interest in SNF: I will discuss this w/ MD. I will continue to follow up w/ michael and MD. Discharge date is unknown at this time.
[2025-01-03 11:42] LABS: POC Glucose,Bedside 133 (70-110)
[2025-01-03 12:52] LABS: Lactate Venous 1.1 mmol/L (0.4-2.0); VBG Base Excess 0.7 mmol/L (-2.4-2.3); VBG HCO3 25.2 mmol/L (23-30); VBG Oxygen Saturation 97.4 % (50-70); VBG PCO2 39.5 mmol/L (35-51); VBG PH 7.42 mmol/L (7.31-7.41); VBG PO2 87.3 mmol/L (28-40); VBG Total CO2 26.4 mmol/L (23-27)
[2025-01-03] MEDS: AZITHROMYCIN 500 MG in 0.9 % SODIUM CHLORIDE 250 ML 250 MG IV (14:41)
--- NOTE | 2025-01-03 15:41 | EXP.PN ---
Subjective *Date: 01/03/25 *Time: 16:06 Interval history: Patient struggling with breathing this morning, initiated on BiPAP with improvement of symptoms. Weaned to 4 L at this time. Trial of BiPAP overnight and get morning ABG. Exam Data for Last 24 hours Vital signs and Labs for Last 24 Hours: Temp Pulse Resp BP Pulse Ox O2 Del Method O2 Flow Rate 98.6 F 90 50 H 149/76 H 93 L BiPAP 5 01/03/25 12:00 01/03/25 13:12 01/03/25 12:00 01/03/25 12:00 01/03/25 12:00 01/03/25 15:00 01/03/25 09:41 FiO2 35 01/03/25 13:12 Laboratory Results - last 24 hr 01/02/25 15:20: Chlamy pneumoniae PCR Not detected, Adenovirus (PCR) Not detected, B. pertussis DNA (PCR) Not detected, Coronavirus OC43 (PCR) Not detected, Coronavirus HKU1 (PCR) Not detected, Coronavirus 229E (PCR) Not detected, SARS-CoV-2 (PCR) Not detected, Coronavirus NL63 (PCR) Not detected, Human Metapneumovir PCR Not detected, Influenza A (H1) PCR Not detected, Influ A (H1N1/09) PCR Detected A, Influenza A (H3) PCR Not detected, Influenza Type A (PCR) Not detected, Influenza Type B (PCR) Not detected, M. pneumoniae (PCR) Not detected, Parainfluenza 1 (PCR) Not detected, Parainfluenza 2 (PCR) Not detected, Parainfluenza 3 (PCR) Not detected, Parainfluenza 4 (PCR) Not detected, RSV (PCR) Not detected, Entero/Rhino (PCR) Not detected 01/02/25 15:33: POC Glucose 174 H 01/02/25 20:59: POC Glucose 149 H 01/03/25 06:00: VBG pH 7.38, VBG pCO2 49.8, VBG pO2 160.2 H, VBG HCO3 28.7, VBG Total CO2 30.3 H, VBG O2 Saturation 99.0 H, VBG Base Excess 3.6 H, VBG Lactic Acid 1.5 01/03/25 06:13: POC Glucose 112 H 01/03/25 06:45: WBC 14.1 H, RBC 4.95, Hgb 15.3, Hct 47.4, MCV 95.8 H, MCH 30.9, MCHC 32.3, RDW 13.1, Plt Count 361, MPV 9.4, Neut % (Auto) 76.4, Lymph % (Auto) 7.6 L, [place] % (Auto) 14.7 H, Eos % (Auto) 0.6, Baso % (Auto) 0.3, Neut # (Auto) 10.8 H, Lymph # (Auto) 1.1, [place] # (Auto) 2.1 H, Eos # (Auto) 0.1, Baso # (Auto) 0.0, Sodium 137, Potassium 3.9, Chloride 102, Carbon Dioxide 31 H, Anion Gap 7.9, BUN 18 D, Creatinine 0.60 L, Estimated Creat Clear 111, Estimated GFR 135, Est GFR ( Amer) 163, Glucose 113 H D, Calcium 8.2 L, Magnesium 2.3 D, Total Bilirubin 0.2, AST 47, ALT 43, Alkaline Phosphatase 85, Total Protein 6.4, Albumin 3.7 D, Globulin 2.7, Albumin/Globulin Ratio 1.4, TSH 0.08 L, Free T4 1.15 01/03/25 09:26: Specimen Source Left radial, O2 % 6 lpm nc, ABG pH 7.31 L, ABG pCO2 55.0 H, ABG pO2 80.5, ABG HCO3 27.0 H, ABG Total CO2 28.7 H, ABG O2 Saturation 96, ABG Base Excess 0.7, Eldon Test Acceptable 01/03/25 11:35: POC Glucose 133 H 01/03/25 12:00: VBG pH 7.42 H, VBG pCO2 39.5, VBG pO2 87.3 H, VBG HCO3 25.2, VBG Total CO2 26.4, VBG O2 Saturation 97.4 H, VBG Base Excess 0.7, VBG Lactic Acid 1.1 I & O for Last 24 hours: Intake & Output 12/31/24 01/01/25 01/02/25 01/03/25 23:59 23:59 23:59 23:59 Intake Total 300 / 300 0 / 0 Output Total 0 / 0 0 / 0 Balance 300 / 300 0 / 0 Weight 117.934 kg 107.547 kg Microbiology Reports for the Last 24 Hours: Microbiology 01/02/25 07:21 Blood Blood Culture - Preliminary NO GROWTH AFTER 24 HOURS 01/02/25 07:21 Blood Blood Culture - Preliminary NO GROWTH AFTER 24 HOURS Constitutional Constitutional: no acute distress *Routine HEENT Exam Head: Present normocephalic Eye: Present EOMI and PERRL ENT: Present mucous membranes moist *Routine Neck Exam Neck: Present supple; Absent lymphadenopathy *Routine Respiratory Exam Respiratory: Present wheezes and diminished air movement; Absent CTA bilaterally *Routine Cardiovascular Exam Cardiovascular: Present RRR *Routine Abdominal Exam Abdominal: Present soft and normoactive bowel sounds; Absent tenderness *Routine Extremities Exam Extremities: Absent cyanosis, clubbing or edema *Routine Skin Exam Skin: Present warm; Absent rash *Routine Neurological Exam Neurological: Present alert and oriented X3 Assessment and Plan *Assessment and plan (1) Acute exacerbation of chronic obstructive pulmonary disease: Status: Acute Category: Medical Code(s): J44.1 - Chronic obstructive pulmonary disease with (acute) exacerbation Plan Vincent Jeter is a 64-year-old male with a medical history significant for COPD on room air, sleep apnea (formerly on CPAP), hypertension who presents with progressive shortness of breath and cough. He states he recently moved from [place] to [place] to live close to his best friend about a week ago. Prior to that, he had been living out of his truck in [place] for 2 years. He states his cough is mostly nonproductive, and used to be a former smoker but no longer. Denies chest pain, abdominal pain, urinary symptoms, but endorses chills. He used to wear a CPAP for sleep apnea many years ago. Currently requiring 2 L nasal cannula, new requirement. Workup in the ED WBC 12.8, unremarkable VBG, BNP 285, CXR not showing acute findings. He had diffuse wheezing throughout, tachypnea, increased work of breathing and was given breathing treatments, Solu-Medrol, azithromycin with mild improvement in symptoms. Case discussed with ED provider and decision was made to admit patient for acute hypoxic respiratory failure secondary to COPD exacerbation. #Acute hypoxic, hypercapnic respiratory failure #COPD exacerbation #Influenza A ? Progressive shortness of breath, intermittently productive cough. Former smoker. ? CXR not showing acute findings. Respiratory panel positive for influenza A. ? This morning, patient had significant increased work of breathing. VBG confirmed hypercarbic respiratory failure. BiPAP initiated with settings 22/12, RR 18, FiO2 35%. ? Repeat VBG this afternoon showed improvement, patient weaned off BiPAP with improvement of respiratory symptoms. Continue 4 L nasal cannula. ? Discussed with pulmonology, will trial off BiPAP overnight and get a morning ABG. ? DuoNebs every 4 hours, Pulmicort twice daily. ? Ceftriaxone, azithromycin day 2/. ? IV Solu-Medrol 40 mg twice daily, day 2/5. ? Continue Tamiflu day 2. #History of sleep apnea #Suspected obesity hypoventilation syndrome ? Had been on CPAP many years ago, it stopped working and patient was lost to follow-up. ? Unable to set up overnight pulse oximetry test as RT who sets that up is unavailable at this time. #Hypertension ? Resume home amlodipine 5 mg. Full code DVT prophylaxis: Lovenox 40 mg
[2025-01-03] MEDS: GLYCERIN ADULT 3GM SUPP 3 GM RC (15:53)
[2025-01-03] MEDS: KETOROLAC 30MG/ML VIAL 30 MG IV (15:53)
[2025-01-03] MEDS: CEFTRIAXONE 1 GM 1 GM in 0.9 % SODIUM CHLORIDE 50 ML IV (15:53)
[2025-01-03 16:45] LABS: POC Glucose,Bedside 142 (70-110)
--- NOTE | 2025-01-03 16:51 | PC.NURSE ---
Pt alert and oriented. Tachypneic. Other vital signs stable. Tolerating bipap. Up with 1 to bedside commode for voids. Multiple bowel interventions completed with one small bowel movement. Antibiotics, antiviral and steroids administered per orders. Toradol for ALVAREZ. Will continue to monitor respiratory status. Patient states he would like to explore placement options at discharge
--- NOTE | 2025-01-03 19:30 | PC.NURSE ---
Pt c/o panic attack to staff, Pt v/s stable and seems agitated. Spoke with Dr. Ellis, new orders for Haldol 5mg IV Q6 see JAN.
[2025-01-03] MEDS: HALOPERIDOL LACTATE 5 MG/ML VIAL IV (19:53)
--- NOTE | 2025-01-03 20:33 | PC.NURSE ---
patient was on 4L NC sating at 88-89%, increased to 5L NC and maintaining at 90%.
[2025-01-03 21:43] LABS: POC Glucose,Bedside 145 (70-110)
--- NOTE | 2025-01-03 23:05 | PC.NURSE ---
contacted RT at this time Pt sats drop while sleeping, RT applies venturi mask @ 40% 12L
[2025-01-04] VITALS (16 sets, daily range): BP systolic 121–160; BP diastolic 61–85; PULSE 73–94; RESP 18–26; TEMP 36.8–37.2; O2SAT 91–96; BMI 35.6
--- NOTE | 2025-01-04 00:12 | PC.NURSE ---
RT adjusted pt venturi mask to 50% 15L
[2025-01-04] MEDS: IPRATROPIUM/ALBUTEROL 3 ML NEB IH ×6 (01:35→21:43)
--- NOTE | 2025-01-04 01:37 | PC.NURSE ---
patient got a bed bath and linen change
[2025-01-04 06:06] LABS: POC Glucose,Bedside 116 (70-110)
[2025-01-04] MEDS: BUDESONIDE 0.5MG/2ML NEB 0.5 MG IH ×2 (06:17→18:22)
[2025-01-04 06:45] LABS: Basophils % 0.2 % (0.1-2.0); Hematocrit 48.6 % (42.0-52.0); Hemoglobin 15.5 g/dL (14.1-18.0); Lymphocytes # 1.1 K/mm3 (0.7-4.5); Lymphocytes % 9.8 % (10-50); Mean Corpuscular HGB Conc 31.9 g/dL (31.8-35.4); Mean Corpuscular Volume 97.2 fl (80-94); Mean Platelet Volume 9.2 fl (7.4-10.4); Monocytes # 0.9 K/mm3 (0.1-1.0); Monocytes % 8.5 % (1.7-9.3); Platelet Count 400 K/mm3 (142-424); Red Cell Distribution Width 13.1 % (11.5-17.5); White Blood Count 11.1 K/mm3 (4.8-10.8)
[2025-01-04 07:00] LABS: Albumin Level 3.7 g/dl (3.5-5.0); Chloride 101 mmol/L (98-107); Potassium 4.7 mmoL/L (3.5-5.1); Sodium 137 mmol/L (136-145)
[2025-01-04 07:02] LABS: Alanine Aminotransferase 46 U/L (12-78); Alkaline Phosphatase 98 U/L (38-126); Anion Gap 8.7 mEq/L (5-15); Aspartate Amino Transferase 72 U/L (17-59); Bilirubin,Total 0.3 mg/dl (0.2-1.3); Blood Urea Nitrogen 18 mg/dl (9-20); Carbon Dioxide 32 mmol/L (22.0-30.0); Creatinine Clearance Estimated 110 mL/min (50-200); Estimated Glomerular Filt Rate 166 ml/min (>60); GFR (African American) 201 ML/MIN (>60)
[2025-01-04 07:03] LABS: Albumin/Globulin Ratio 1.3 (1.1-1.8); Calcium 8.3 mg/dl (8.4-10.2); Globulin 2.9 g/dL (1.3-3.2); Glucose 124 mg/dl (74-100); Magnesium 2.3 mg/dl (1.6-2.3); Total Protein,Serum 6.6 g/dl (6.3-8.2)
[2025-01-04] MEDS: METHYLPREDNISOLONE SOD SUCC 40MG VIAL 40 MG IV ×2 (09:04→21:19)
[2025-01-04] MEDS: OSELTAMIVIR 75MG CAPSULE 75 MG PO ×2 (09:04→21:19)
[2025-01-04] MEDS: ENOXAPARIN 40MG/0.4ML SYRINGE 40 MG SUBCUT (09:04)
[2025-01-04] MEDS: POLYETHYLENE GLYCOL 3350 17 GM PACKET PO (09:04)
[2025-01-04] MEDS: AMLODIPINE 5MG TABLET 5 MG PO (09:07)
[2025-01-04 09:14] LABS: ABG Base Excess 3.9 mmol/L (-2.4-2.3); ABG HCO3 29.7 mmhg (22.0-26.0); ABG Oxygen Saturation 95 % (90-100); ABG PH 7.34 mmol/L (7.35-7.45); ABG PO2 71.3 mmhg (80-100); ABG TCO2 31.5 mmhg (23-27)
[2025-01-04 09:19] LABS: Allen's Test ACCEPTABLE; Oxygen 50% %
[2025-01-04] MEDS: SODIUM CHLORIDE 3% 15ML NEB 3 ML IH (09:19)
[2025-01-04 09:20] LABS: ABG PCO2 56.6 mmhg (35.0-45.0); Source R RADIAL
--- NOTE | 2025-01-04 09:48 | P.PN_ITS ---
Subjective *Date: 01/04/25 *Time: 12:19 Interval history: No acute respiratory events overnight. Off BiPAP needing increasing oxygen requirements. Worsening hypercarbia on this morning's ABG. Patient denies any new respiratory complaints Pulmonology Exam Inpatient Vital signs and Labs for Last 24 Hours: Temp Pulse Resp BP Pulse Ox O2 Del Method O2 Flow Rate 98.6 F 77 20 134/73 92 L Venturi Mask 15 01/04/25 08:00 01/04/25 09:20 01/04/25 09:20 01/04/25 08:00 01/04/25 09:00 01/04/25 09:00 01/04/25 09:00 FiO2 50 01/04/25 06:17 Laboratory Results - last 24 hr 01/03/25 09:26: Specimen Source Left radial, O2 % 6 lpm nc, ABG pH 7.31 L, ABG pCO2 55.0 H, ABG pO2 80.5, ABG HCO3 27.0 H, ABG Total CO2 28.7 H, ABG O2 Saturation 96, ABG Base Excess 0.7, Eldon Test Acceptable 01/03/25 11:35: POC Glucose 133 H 01/03/25 12:00: VBG pH 7.42 H, VBG pCO2 39.5, VBG pO2 87.3 H, VBG HCO3 25.2, VBG Total CO2 26.4, VBG O2 Saturation 97.4 H, VBG Base Excess 0.7, VBG Lactic Acid 1.1 01/03/25 16:38: POC Glucose 142 H 01/03/25 20:42: POC Glucose 145 H 01/04/25 05:57: POC Glucose 116 H 01/04/25 06:00: Specimen Source R radial, O2 % 50%, ABG pH 7.34 L, ABG pCO2 56.6 H, ABG pO2 71.3 L, ABG HCO3 29.7 H, ABG Total CO2 31.5 H, ABG O2 Saturation 95, ABG Base Excess 3.9 H, Eldon Test Acceptable 01/04/25 06:25: WBC 11.1 H, RBC 5.00, Hgb 15.5, Hct 48.6, MCV 97.2 H, MCH 31.0, MCHC 31.9, RDW 13.1, Plt Count 400, MPV 9.2, Neut % (Auto) 81.0 H, Lymph % (Auto) 9.8 L, [place] % (Auto) 8.5, Eos % (Auto) 0.0 L, Baso % (Auto) 0.2, Neut # (Auto) 9.0 H, Lymph # (Auto) 1.1, [place] # (Auto) 0.9, Eos # (Auto) 0.0, Baso # (Auto) 0.0, Sodium 137, Potassium 4.7 D, Chloride 101, Carbon Dioxide 32 H, Anion Gap 8.7, BUN 18, Creatinine 0.50 L, Estimated Creat Clear 110, Estimated GFR 166, Est GFR ( Amer) 201 D, Glucose 124 H, Calcium 8.3 L, Magnesium 2.3, Total Bilirubin 0.3, AST 72 H D, ALT 46, Alkaline Phosphatase 98, Total Protein 6.6, Albumin 3.7, Globulin 2.9, Albumin/Globulin Ratio 1.3 Temp Pulse Resp BP Pulse Ox O2 Del Method O2 Flow Rate 98.9 F 95 H 22 147/70 H 93 L Nasal Cannula 5 01/03/25 08:00 01/03/25 09:41 01/03/25 08:00 01/03/25 08:00 01/03/25 09:41 01/03/25 09:41 01/03/25 09:41 FiO2 50 01/03/25 05:25 Laboratory Results - last 24 hr 01/02/25 10:45: Troponin I < 0.01 01/02/25 13:25: Troponin I < 0.01 01/02/25 15:20: Chlamy pneumoniae PCR Not detected, Adenovirus (PCR) Not detected, B. pertussis DNA (PCR) Not detected, Coronavirus OC43 (PCR) Not detected, Coronavirus HKU1 (PCR) Not detected, Coronavirus 229E (PCR) Not detected, SARS-CoV-2 (PCR) Not detected, Coronavirus NL63 (PCR) Not detected, Human Metapneumovir PCR Not detected, Influenza A (H1) PCR Not detected, Influ A (H1N1/09) PCR Detected A, Influenza A (H3) PCR Not detected, Influenza Type A (PCR) Not detected, Influenza Type B (PCR) Not detected, M. pneumoniae (PCR) Not detected, Parainfluenza 1 (PCR) Not detected, Parainfluenza 2 (PCR) Not detected, Parainfluenza 3 (PCR) Not detected, Parainfluenza 4 (PCR) Not detected, RSV (PCR) Not detected, Entero/Rhino (PCR) Not detected 01/02/25 15:33: POC Glucose 174 H 01/02/25 20:59: POC Glucose 149 H 01/03/25 06:00: VBG pH 7.38, VBG pCO2 49.8, VBG pO2 160.2 H, VBG HCO3 28.7, VBG Total CO2 30.3 H, VBG O2 Saturation 99.0 H, VBG Base Excess 3.6 H, VBG Lactic Acid 1.5 01/03/25 06:13: POC Glucose 112 H 01/03/25 06:45: WBC 14.1 H, RBC 4.95, Hgb 15.3, Hct 47.4, MCV 95.8 H, MCH 30.9, MCHC 32.3, RDW 13.1, Plt Count 361, MPV 9.4, Neut % (Auto) 76.4, Lymph % (Auto) 7.6 L, [place] % (Auto) 14.7 H, Eos % (Auto) 0.6, Baso % (Auto) 0.3, Neut # (Auto) 10.8 H, Lymph # (Auto) 1.1, [place] # (Auto) 2.1 H, Eos # (Auto) 0.1, Baso # (Auto) 0.0, Sodium 137, Potassium 3.9, Chloride 102, Carbon Dioxide 31 H, Anion Gap 7.9, BUN 18 D, Creatinine 0.60 L, Estimated Creat Clear 111, Estimated GFR 135, Est GFR ( Amer) 163, Glucose 113 H D, Calcium 8.2 L, Magnesium 2.3 D, Total Bilirubin 0.2, AST 47, ALT 43, Alkaline Phosphatase 85, Total Protein 6.4, Albumin 3.7 D, Globulin 2.7, Albumin/Globulin Ratio 1.4, TSH 0.08 L, Free T4 1.15 01/03/25 09:26: Specimen Source Left radial, O2 % 6 lpm nc, ABG pH 7.31 L, ABG pCO2 55.0 H, ABG pO2 80.5, ABG HCO3 27.0 H, ABG Total CO2 28.7 H, ABG O2 Saturation 96, ABG Base Excess 0.7, Eldon Test Acceptable I & O for Labs for Last 24 Hours: Intake & Output 01/01/25 01/02/25 01/03/25 01/04/25 23:59 23:59 23:59 23:59 Intake Total 300 / 300 0 / 0 480 / 480 Output Total 0 / 0 0 / 0 300 / 300 Balance 300 / 300 0 / 0 180 / 180 Weight 260 lb 237 lb 1.6 oz 235 lb Intake & Output 12/31/24 01/01/25 01/02/25 01/03/25 23:59 23:59 23:59 23:59 Intake Total 300 / 300 0 / 0 Output Total 0 / 0 0 / 0 Balance 300 / 300 0 / 0 Weight 260 lb 237 lb 1.6 oz Microbiology Reports for the Last 24 Hours: Microbiology 01/02/25 07:21 Blood Blood Culture - Preliminary NO GROWTH AFTER 48 HOURS 01/02/25 07:21 Blood Blood Culture - Preliminary NO GROWTH AFTER 48 HOURS Microbiology 01/02/25 07:21 Blood Blood Culture - Preliminary NO GROWTH AFTER 24 HOURS 01/02/25 07:21 Blood Blood Culture - Preliminary NO GROWTH AFTER 24 HOURS Constitutional: Present severe distress Head: Present normocephalic and atraumatic ENT: Present normal exam, normal oropharynx and mucous membranes moist Neck: Present normal inspection and full ROM Respiratory: Present respiratory distress, rhonchi, wheezes, diminished air movement and able to speak in complete sentences Cardiac: Present S1/S2, Tachycardia and radial pulses present GI: Present soft and distention; Absent tenderness or guarding Skin: Present intact; Absent cyanosis or jaundice Neuro: Present alert, awake and oriented x 3 Extremities: Present normal inspection; Absent clubbing or cyanosis Psychiatric: Present normal affect and cooperative Assessment and Plan *Assessment and plan (1) Influenza A (H1N1): Status: Acute Category: Medical Code(s): J10.1 - Influenza due to other identified influenza virus with other respiratory manifestations (2) Acute and chronic respiratory failure with hypercapnia: Status: Acute Category: Medical Code(s): J96.22 - Acute and chronic respiratory failure with hypercapnia (3) Pneumonia: Status: Acute Category: Medical Code(s): J18.9 - Pneumonia, unspecified organism Plan Mr. Jeter is a 64-year-old male with reported history of COPD sleep apnea hype rtension presented to the ER with worsening respiratory distress and pulmonary was called for further evaluation and management. He was prior smoker, not smoked in the last 40 years as per the patient. Not using any inhalers at baseline. Admits prior history of sleep apnea however has not been compliant as he lost his machine recently. Afebrile. Hemodynamically stable. Neutrophilic predominant leukocytosis. Respiratory viral PCR panel positive for H1 N1 influenza A. Chest x-ray upon admission bilateral upper lobe predominant patchy airspace disease left greater than right along with vascular congestion. Blood gas upon admission chronic hypercarbic respiratory failure. ABG from this morning worsening hypercarbia. Blood cultures no growth so far. Continue receiving Tamiflu and azithromycin. On initial examination bilateral diffuse wheezing noted. Appeared confused. Initiated on BiPAP therapy. Interval update: Afebrile. Hemodynamically stable. Slightly improved leukocytosis. BiPAP overnight. ABG hypercarbic respiratory failure with a pH of 7.34 and pCO2 56.6. Likely a combination of his COPD and sleep apnea in setting of his acute illness including COPD exacerbation and influenza pneumonia. Oxygen requirement also escalated to Ventimask overnight secondary to hypoxic episodes Plan: Continue oxygen supplementation to maintain O2 saturation goal of 90% and above. On Ventimask 35% saturating 93%. Weaned to nasal cannula. DuoNebs every 4 hours along with Pulmicort every 12 scheduled Continue ceftriaxone azithromycin pending culture results Continue Tamiflu x 5 days pending clinical improvement.
[2025-01-04 11:36] LABS: POC Glucose,Bedside 117 (70-110)
--- NOTE | 2025-01-04 13:56 | HMH.OTEV ---
OT Inpatient Evaluation Rehab OT IP Evaluation Start: 01/04/25 10:40 Freq: ONCE Status: Active Protocol: Document 01/04/25 13:51 [facility] (Rec: 01/04/25 13:56 [facility] [id number]) Rehab OT IP Assessment Subjective History Pt oriented x2 on arrival. Pt agreeable to engage in therapy evaluation. Pt admitted on 01/02/25 due to SOB. History and physical: Vincent Jeter is a 64-year-old male with a medical history significant for COPD on room air, sleep apnea (formerly on CPAP), hypertension who presents with progressive shortness of breath and cough. He states he recently moved from [place] to [place] to live close to his best friend about a week ago. Prior to that, he had been living out of his truck in [place] for 2 years. He states his cough is mostly nonproductive, and used to be a former smoker but no longer. Denies chest pain , abdominal pain, urinary symptoms, but endorses chills. He used to wear a CPAP for sleep apnea many years ago. Currently requiring 2 L nasal cannula, new requirement. Workup in the ED WBC 12.8, unremarkable VBG, BNP 285, CXR not showing acute findings. He had diffuse wheezing throughout, tachypnea, increased work of breathing and was given breathing treatments, Solu-Medrol, azithromycin with mild improvement in symptoms. Case discussed with ED provider and decision was made to admit patient for acute hypoxic respiratory failure secondary to COPD exacerbation Subjective Pt reports he recently moved to [place] from [place]. At this point in time, he does not have a home. He was living out of his truck according to history report. Pt claims normally he is independent with all ADLs and IADLs. Pt still drives. Pt does not use any type of AE during functional transfers. Objective Patient Orientation Person,Birthday Bed Mobility bed mobility-scooting,bed mobility - supine/sit,bed mobility - rolling Assist Level Contact Guard/Hand Hold Transfer Training Sit/Stand Transfer Assist Level Minimal x 1 (25% assist) Lower Body Dressing Ability Maximum Assistance Rehab OT IP prob,goals,plan Problems Date of Evaluation: 01/04/25 OT IP Problems Bed Mobility,Transfers,Balance ,Self care,Safety Rehab Potential Rehab Potential Good Equipment Needs Assistive Devices Rolling / Wheeled Walker Plan OT intervention Plan Bed Mobility,Transfers,Balance ,Self care,Safety,Therapeutic Exercise OT Plan Frequency Daily Duration LOS Discharge Goals Bed Mobility Ability Standby Assistance Sit to Stand Chair Transfer Ability Contact Guard/Hand Hold Chair Transfer Ability Contact Guard/Hand Hold Chair Transfer Technique Sit to/from Ambulatory Chair Transfer Assistive Devices Rolling Walker Lower Body Dressing Ability Moderate Assistance Upper Body Dressing Ability Minimal Assistance Bathing Ability Moderate Assistance Performing Toilet Hygiene Ability Moderate Assistance Overall Commode/Toilet Transfer Ability Contact Guard Commode/Toilet Transfer Technique Sit to/from Ambulatory Discharge Plan OT Discharge Plan Pt will continue to be seen for OT services while at [facility]. At this time, therapist recommends short term rehab at SNF due to a slight decline in functional ability. Continued skilled therapy is important in order for patient to improve strength, safety, endurance, ADL independence, and functional transfers to reach PLOF. Eval Complexity Eval Charge Codes 02093 - Moderate Complexity PHYSICIAN CERTIFICATION: I certify the specified therapy services for Gigi Jeter are required, authorized, and reviewed every 30 days.
--- NOTE | 2025-01-04 14:04 | HMH.PTEV ---
Physical Therapy Evaluation Rehab PT IP Evaluation Start: 01/04/25 10:40 Freq: ONCE Status: Active Protocol: Document 01/04/25 13:54 [facility] (Rec: 01/04/25 14:04 [facility] [id number]) Subjective/History History History Per H&P: Vincent Jeter is a 64-year-old male with a medical history significant for COPD on room air, sleep apnea (formerly on CPAP), hypertension who presents with progressive shortness of breath and cough. He states he recently moved from [place] to [place] to live close to his best friend about a week ago. Prior to that, he had been living out of his truck in [place] for 2 years. He states his cough is mostly nonproductive, and used to be a former smoker but no longer. Denies chest pain, abdominal pain, urinary symptoms, but endorses chills. He used to wear a CPAP for sleep apnea many years ago. Currently requiring 2 L nasal cannula, new requirement. Workup in the ED WBC 12.8, unremarkable VBG, BNP 285, CXR not showing acute findings. He had diffuse wheezing throughout, tachypnea, increased work of breathing and was given breathing treatments, Solu- Medrol, azithromycin with mild improvement in symptoms. Case discussed with ED provider and decision was made to admit patient for acute hypoxic respiratory failure secondary to COPD exacerbation . Subjective Subjective PLOF: IND with all mobility prior to admission. No AD usage. Home: I'm homeless Pt reports he moved from [place] to [place] and does not currently have a living space in [place]. New diagnosis of cancer in past 12 No months? Rehab PT IP Eval Objective Appearance Patient Behavior Appropriate,Cooperative Patient Orientation Person,Place Difficulty following instructions none Speech Pattern Clear Ambulation Patient Able to Ambulate Yes Ambulation Observation IP General Gait Pattern Observation Wide Based Gait Ambulation Distance (feet) 30 Ambulation Ability Minimal x 1 (25% assist) Balance Ability to Arise Able, uses arms to help Sitting Balance Steady, safe Standing Balance Steady, wide stance Dynamic Sitting Balance Ability Good Dynamic Standing Balance Ability Good Transfers Bed Transfer Ability Supervision/Stand by Sit to Stand Bed Transfer Ability Contact Guard/Hand Hold Rehab PT IP prob,goals,plan Problems Date of Evaluation: 01/04/25 PT IP Problems Gait,Balance,Safety Rehab Potential Rehab Potential Good Equipment Needs Assistive Devices Rolling / Wheeled Walker Plan PT Intervention Plan Transfers,Gait,Balance, Therapeutic Exercise Other Intervention Plan 1-2 times PT Plan Frequency Daily Duration LOS Discharge Goals Bed Transfer Ability Independent Sit to Stand Chair Transfer Ability Independent Ambulation Assistive Device Rolling Walker Ambulation Distance (feet) 100 Discharge Plan PT Discharge Plan Initial physical therapy evaluation performed. Patient presents below baseline at this time in functional mobility, transfers, and strength. Pt ambulated in room requiring CGA-Min A d/t one bout of LOB. Pt not safe to return to community living conditions d/t impaired balance and impaired endurance . PT recommending short-term rehabilitation stay upon d/c from [facility]. Pt would benefit from skilled PT while at [facility] to prevent further functional decline and maximize safety with mobility. Eval Complexity Eval Charge Codes 05123 - Moderate Complexity PHYSICIAN CERTIFICATION: I certify the specified therapy services for Gigi Jeter are required, authorized, and reviewed every 30 days.
--- NOTE | 2025-01-04 15:16 | SW/DCPLANNER ---
Addendum entered by Varsha Barrios 01/06/25 11:41: I have updated Leydi suarez/ [employer] [facility] that patient will discharge today. Patient will require O2 for transportation and will rent this from [facility]. Addendum entered by Varsha Barrios 01/05/25 11:55: Patient agreeable for information to be faxed to [facility] and [facility]. Leydi suarez/ [facility] reviewed patient information and is agreeable to accept this patient. Per MD patient could be ready for discharge tomorrow. Addendum entered by Varsha Barrios 01/05/25 09:20: Shira suarez/ [facility] is unable to meet patient's needs. Patient information has been faxed to Dora suarez/ [facility]. Original Note: Therapy recommends short term rehab. Discussed this with patient. He states if he goes to rehab for 20 days his friends will likely have his heat and septic hooked up to his cabin and he could go back there. He previously resided with a friend, Víctor, who smokes and he would prefer not to have to stay with him due to the smoke. He does not have a preference for placement. He did want us to start by looking at facilities in [place]. Information sent to [facility]. Nayla states they will have a male bed available.
[2025-01-04] MEDS: AZITHROMYCIN 500 MG in 0.9 % SODIUM CHLORIDE 250 ML 250 MG IV (16:01)
[2025-01-04 16:53] LABS: POC Glucose,Bedside 130 (70-110)
[2025-01-04] MEDS: CEFTRIAXONE 1 GM 1 GM in 0.9 % SODIUM CHLORIDE 50 ML IV (17:32)
--- NOTE | 2025-01-04 17:50 | PC.NURSE ---
Patient alert and oriented. VSS. On 15L venti mask FiO2 35% while sleeping. 5L O2 via nasal cannula while eating. Patient appears less dyspneic this afternoon and states he is feeling better. Up with 1 to BR for voids or using urinal at bedside. IV antibiotics administered per orders. Plan to continue antibiotics, antiviral and breathing treatments. Pending rehab placement upon discharge
--- NOTE | 2025-01-04 18:11 | ECG_ITS ---
APPROVED REPORT Exam: Resting ECG HR:81 bpm ECG Measurements Heart Rate 81 AXES MN 134 P 62 QRSd 92 QRS 37 QT 370 T 68 QTc 407 Conclusion SINUS RHYTHM NORMAL ECG UNCONFIRMED REPORT Electronically signed by : Mohinder Steven MD 01/05/2025 08:42:45
--- NOTE | 2025-01-04 18:30 | PC.NURSE ---
Patient with complaint of chest pain after getting up to BR for void. EKG NSR. VSS. Symptoms resolved after 3-4 minutes. Patient states he thought it was gas. Dr. Sepulveda notified. No new orders received
--- NOTE | 2025-01-04 18:37 | P.PN_ITS ---
Subjective *Date: 01/04/25 *Time: 21:38 Interval history: Showing improvement on vent T. States he is slowly feeling somewhat better. Remains afebrile. No nausea or vomiting. Blood gas this morning better. Denies chest pain. On venti 35%. Hard of hearing, friend at bedside able to l isten to plan to help answer patient questions. Medical Exam Vital signs and Labs for Last 24 Hours: Vital Signs Temp Pulse Pulse Resp BP Pulse Ox O2 Del Method 01/04/25 17:15 Nasal Cannula 01/04/25 16:00 98.8 F 82 18 94 L Venturi Mask 01/04/25 15:00 Venturi Mask 01/04/25 13:54 78 01/04/25 13:54 80 01/04/25 12:59 Nasal Cannula 01/04/25 12:00 98.4 F 83 20 137/61 92 L Venturi Mask 01/04/25 11:20 Venturi Mask 01/04/25 09:20 77 20 01/04/25 09:20 75 01/04/25 09:20 77 01/04/25 09:00 Venturi Mask 01/04/25 09:00 92 L Venturi Mask 01/04/25 08:00 98.6 F 87 20 134/73 96 Venturi Mask 01/04/25 06:48 Venturi Mask 01/04/25 06:17 82 01/04/25 06:17 79 01/04/25 06:17 95 Venturi Mask 01/04/25 05:00 Venturi Mask 01/04/25 03:51 98.6 F 76 22 139/72 94 L Venturi Mask 01/04/25 03:00 Venturi Mask 01/04/25 01:38 91 H 01/04/25 01:38 94 H 01/04/25 01:00 Venturi Mask 01/04/25 00:05 91 L Venturi Mask 01/04/25 00:00 98.2 F 91 H 26 H 149/69 H 96 Venturi Mask 01/03/25 23:00 Venturi Mask 01/03/25 21:00 Nasal Cannula 01/03/25 20:00 91 L Nasal Cannula 01/03/25 20:00 98.5 F 89 22 128/72 93 L Nasal Cannula 01/03/25 18:52 Nasal Cannula O2 Flow Rate FiO2 01/04/25 17:15 5 01/04/25 16:00 01/04/25 15:00 01/04/25 13:54 01/04/25 13:54 01/04/25 12:59 5 01/04/25 12:00 01/04/25 11:20 01/04/25 09:20 01/04/25 09:20 01/04/25 09:20 01/04/25 09:00 15 01/04/25 09:00 15 01/04/25 08:00 01/04/25 06:48 15 01/04/25 06:17 01/04/25 06:17 01/04/25 06:17 15 50 01/04/25 05:00 15 01/04/25 03:51 15 50 01/04/25 03:00 15 01/04/25 01:38 01/04/25 01:38 01/04/25 01:00 15 01/04/25 00:05 15 50 01/04/25 00:00 15 50 01/03/25 23:00 12 01/03/25 21:00 5 01/03/25 20:00 4 01/03/25 20:00 4 01/03/25 18:52 Intake and Output 01/04/25 01/04/25 01/04/25 07:59 15:59 23:59 Intake Total 1200 / 2280 1080 / 2280 Output Total 0 / 300 300 / 300 Balance 1979 / 1979 Intake: Intake, Oral Amount 1200 / 2280 1080 / 2280 Output: Output, Urine Amount 0 / 300 300 / 300 Other: Number of Unmeasured Voids 1 1 Number of Bowel Movements 1 Weight 106.594 kg Patient Weight 01/04/25 23:59 Weight 106.594 kg Laboratory Results - last 24 hr 01/03/25 20:42: POC Glucose 145 H 01/04/25 05:57: POC Glucose 116 H 01/04/25 06:00: Specimen Source R radial, O2 % 50%, ABG pH 7.34 L, ABG pCO2 56.6 H, ABG pO2 71.3 L, ABG HCO3 29.7 H, ABG Total CO2 31.5 H, ABG O2 Saturation 95, ABG Base Excess 3.9 H, [place] Test Acceptable 01/04/25 06:25: WBC 11.1 H, RBC 5.00, Hgb 15.5, Hct 48.6, MCV 97.2 H, MCH 31.0, MCHC 31.9, RDW 13.1, Plt Count 400, MPV 9.2, Neut % (Auto) 81.0 H, Lymph % (Auto) 9.8 L, [place] % (Auto) 8.5, Eos % (Auto) 0.0 L, Baso % (Auto) 0.2, Neut # (Auto) 9.0 H, Lymph # (Auto) 1.1, [place] # (Auto) 0.9, Eos # (Auto) 0.0, Baso # (Auto) 0.0, Sodium 137, Potassium 4.7 D, Chloride 101, Carbon Dioxide 32 H, Anion Gap 8.7, BUN 18, Creatinine 0.50 L, Estimated Creat Clear 110, Estimated GFR 166, Est GFR ( Amer) 201 D, Glucose 124 H, Calcium 8.3 L, Magnesium 2.3, Total Bilirubin 0.3, AST 72 H D, ALT 46, Alkaline Phosphatase 98, Total Protein 6.6, Albumin 3.7, Globulin 2.9, Albumin/Globulin Ratio 1.3 01/04/25 11:29: POC Glucose 117 H 01/04/25 16:23: POC Glucose 130 H I & O for Labs for Last 24 Hours: Intake & Output 01/01/25 01/02/25 01/03/25 01/04/25 23:59 23:59 23:59 23:59 Intake Total 300 / 300 0 / 0 2280 / 2280 Output Total 0 / 0 0 / 0 300 / 300 Balance 300 / 300 0 / 0 1979 / 1979 Weight 117.934 kg 107.547 kg 106.594 kg Microbiology Reports for the Last 24 Hours: Microbiology 01/02/25 07:21 Blood Blood Culture - Preliminary NO GROWTH AFTER 48 HOURS 01/02/25 07:21 Blood Blood Culture - Preliminary NO GROWTH AFTER 48 HOURS Constitutional: Present mild distress, obese, chronically ill appearing and cooperative Head: Present atraumatic and normocephalic ENT: Present normal exam Respiratory: Present prolonged expiratory phase, rhonchi, wheezes and normal respiratory effort; Absent crackles Cardiac: Present Reg Rate and Rhythm GI: Present soft and normal bowel sounds; Absent distention or tenderness Extremities: Present normal inspection and full ROM Skin: Present intact; Absent erythema Neuro: Present Grossly Intact, alert, awake, oriented x 3 and moves all extremities Comment:: very hard of hearing Assessment and Plan *Assessment and plan (1) Acute exacerbation of chronic obstructive pulmonary disease: Status: Acute Category: Medical Code(s): J44.1 - Chronic obstructive pulmonary disease with (acute) exacerbation (2) Pneumonia: Status: Acute Category: Medical Code(s): J18.9 - Pneumonia, unspecified organism (3) Influenza A (H1N1): Status: Acute Category: Medical Code(s): J10.1 - Influenza due to other identified influenza virus with other respiratory manifestations (4) Acute and chronic respiratory failure with hypercapnia: Status: Acute Category: Medical Code(s): J96.22 - Acute and chronic respiratory failure with hypercapnia (5) Hypertension: Status: Acute Qualifiers: Hypertension type: unspecified Qualified Code(s): I10 - Essential (primary) hypertension Category: Medical Code(s): I10 - Essential (primary) hypertension Plan Gigi Jeter is a 64-year-old male with a medical history significant for COPD on room air, sleep apnea (formerly on CPAP), hypertension who presents with progressive shortness of breath and cough. He states he recently moved from [place] to [place] to live close to his best friend about a week ago. Prior to that, he had been living out of his truck in [place] for 2 years. He states his cough is mostly nonproductive, and used to be a former smoker but no longer. Denies chest pain, abdominal pain, urinary symptoms, but endorses chills. He used to wear a CPAP for sleep apnea many years ago. Currently requiring 2 L nasal cannula, new requirement. Workup in the ED WBC 12.8, unremarkable VBG, BNP 285, CXR not showing acute findings. He had diffuse wheezing throughout, tachypnea, increased work of breathing and was given breathing treatments, Solu- Medrol, azithromycin with mild improvement in symptoms. Case discussed with ED provider and decision was made to admit patient for acute hypoxic respiratory failure secondary to COPD exacerbation. Continues to require inpatient management. Slow to wean oxygen. Problems addressed as follows: #Acute hypoxic, hypercapnic respiratory failure #COPD exacerbation #Influenza A ? Progressive shortness of breath, intermittently productive cough. Former smoker. ? CXR not showing acute findings. Respiratory panel positive for influenza A. ? DuoNebs every 4 hours, Pulmicort twice daily. ? Ceftriaxone, azithromycin day 3. ? IV Solu-Medrol 40 mg twice daily, day 3/. ? Continue Tamiflu day 3/ - Discussed case with pulmonology, continue supplemental oxygen as needed. Wean venti mask to to 35%. - Continue BiPAP overnight if needed. #History of sleep apnea #Suspected obesity hypoventilation syndrome ? Had been on CPAP many years ago, it stopped working and patient was lost to follow-up. ?Will need sleep study after discharge. #Hypertension: Continue home amlodipine 5 mg. Full code DVT prophylaxis: Lovenox 40 mg Regular diet
[2025-01-04 22:24] LABS: POC Glucose,Bedside 123 (70-110)
[2025-01-05] VITALS (13 sets, daily range): BP systolic 120–133; BP diastolic 50–74; PULSE 61–86; RESP 18–22; TEMP 36.4–36.9; O2SAT 88–93; BMI 36.4
[2025-01-05] MEDS: IPRATROPIUM/ALBUTEROL 3 ML NEB IH ×6 (01:42→21:57)
--- NOTE | 2025-01-05 04:05 | PC.NURSE ---
Pt. is alert and orientated x 4. Pt. with history of COPD and flu. Pt on Venti mask 15 liters. holding sats low 90's. Pt. is hard of hearing. He states that he feels fine this shift. Pt. has slept well. Pt. has had no chest pain this sift. VSS, personal items and call roberts in reach.
[2025-01-05] MEDS: BUDESONIDE 0.5MG/2ML NEB 0.5 MG IH ×2 (06:07→18:02)
[2025-01-05 06:13] LABS: POC Glucose,Bedside 124 (70-110)
[2025-01-05 06:52] LABS: Basophils % 0.1 % (0.1-2.0); Hematocrit 50.6 % (42.0-52.0); Hemoglobin 16.1 g/dL (14.1-18.0); Lymphocytes # 0.9 K/mm3 (0.7-4.5); Lymphocytes % 11.9 % (10-50); Mean Corpuscular HGB Conc 31.8 g/dL (31.8-35.4); Mean Corpuscular Volume 97.5 fl (80-94); Mean Platelet Volume 9.6 fl (7.4-10.4); Monocytes # 0.7 K/mm3 (0.1-1.0); Monocytes % 9.7 % (1.7-9.3); Neutrophils # 5.8 K/mm3 (1.8-7.8); Platelet Count 435 K/mm3 (142-424); Red Blood Count 5.19 M/mm3 (4.60-6.20); White Blood Count 7.5 K/mm3 (4.8-10.8)
[2025-01-05 07:00] LABS: Albumin Level 4.1 g/dl (3.5-5.0); Chloride 100 mmol/L (98-107); Sodium 139 mmol/L (136-145)
[2025-01-05 07:01] LABS: Potassium 4.3 mmoL/L (3.5-5.1)
[2025-01-05 07:03] LABS: Alanine Aminotransferase 56 U/L (12-78); Albumin/Globulin Ratio 1.6 (1.1-1.8); Alkaline Phosphatase 88 U/L (38-126); Anion Gap 11.3 mEq/L (5-15); Aspartate Amino Transferase 59 U/L (17-59); Bilirubin,Total 0.3 mg/dl (0.2-1.3); Blood Urea Nitrogen 18 mg/dl (9-20); Calcium 8.5 mg/dl (8.4-10.2); Carbon Dioxide 32 mmol/L (22.0-30.0); Creatinine Clearance Estimated 112 mL/min (50-200); Estimated Glomerular Filt Rate 113 ml/min (>60); GFR (African American) 137 ML/MIN (>60); Globulin 2.5 g/dL (1.3-3.2); Glucose 130 mg/dl (74-100); Total Protein,Serum 6.6 g/dl (6.3-8.2)
[2025-01-05 07:04] LABS: Magnesium 2.1 mg/dl (1.6-2.3)
--- NOTE | 2025-01-05 08:57 | P.PN_ITS ---
Subjective *Date: 01/05/25 *Time: 08:57 Medical Exam Vital signs and Labs for Last 24 Hours: Vital Signs Temp Pulse Pulse Resp BP Pulse Ox O2 Del Method 01/05/25 07:51 97.6 F 86 22 133/66 93 L 01/05/25 06:44 Room Air, Nasal Cannula 01/05/25 06:09 68 01/05/25 06:09 61 01/05/25 06:09 92 L Venturi Mask 01/05/25 05:00 Room Air 01/05/25 04:00 98.4 F 67 18 120/57 L 91 L Venturi Mask 01/05/25 03:00 Venturi Mask 01/05/25 02:25 71 01/05/25 02:10 77 01/05/25 01:00 Venturi Mask 01/05/25 00:00 98.5 F 74 20 123/57 L 91 L Venturi Mask 01/04/25 23:00 Venturi Mask 01/04/25 22:22 77 01/04/25 22:21 77 01/04/25 21:00 Venturi Mask 01/04/25 20:22 Venturi Mask 01/04/25 20:00 Venturi Mask 01/04/25 20:00 98.9 F 79 18 121/68 91 L Venturi Mask 01/04/25 18:42 Venturi Mask 01/04/25 18:25 79 01/04/25 18:10 73 01/04/25 17:15 Nasal Cannula 01/04/25 16:00 160/85 H 01/04/25 16:00 98.8 F 82 18 94 L Venturi Mask 01/04/25 15:00 Venturi Mask 01/04/25 13:54 78 01/04/25 13:54 80 01/04/25 12:59 Nasal Cannula 01/04/25 12:00 98.4 F 83 20 137/61 92 L Venturi Mask 01/04/25 11:20 Venturi Mask 01/04/25 09:20 77 20 01/04/25 09:20 75 01/04/25 09:20 77 01/04/25 09:00 Venturi Mask 01/04/25 09:00 92 L Venturi Mask O2 Flow Rate FiO2 01/05/25 07:51 15 01/05/25 06:44 01/05/25 06:09 01/05/25 06:09 01/05/25 06:09 15 50 01/05/25 05:00 01/05/25 04:00 01/05/25 03:00 15 01/05/25 02:25 01/05/25 02:10 01/05/25 01:00 15 01/05/25 00:00 01/04/25 23:00 15 01/04/25 22:22 01/04/25 22:21 01/04/25 21:00 15 01/04/25 20:22 50 01/04/25 20:00 15 01/04/25 20:00 01/04/25 18:42 01/04/25 18:25 01/04/25 18:10 01/04/25 17:15 5 01/04/25 16:00 01/04/25 16:00 01/04/25 15:00 01/04/25 13:54 01/04/25 13:54 01/04/25 12:59 5 01/04/25 12:00 01/04/25 11:20 01/04/25 09:20 01/04/25 09:20 01/04/25 09:20 01/04/25 09:00 15 01/04/25 09:00 15 Intake and Output 01/04/25 01/05/25 01/05/25 23:59 07:59 15:59 Intake Total 1080 / 2870 590 / 590 Output Total 200 / 500 0 / 0 Balance 880 / 2370 590 / 590 Intake: Intake, Oral Amount 1080 / 2520 240 / 240 Intake, Total IV Amount 350 / 350 Azithromycin 500 mg In 0.9 % 250 / 250 Sodium Chloride 250 ml @ 250 mls/hr IV Q24H [facility] Rx#:[id number] Ceftriaxone 1 gm 1 gm In 0.9 % 100 / 100 Sodium Chloride 50 ml @ 100 mls /hr IV Q24H [facility] Rx#:[id number] Output: Output, Urine Amount 200 / 500 0 / 0 Other: Number of Unmeasured Voids 1 1 Weight 108.998 kg Patient Weight 01/05/25 23:59 Weight 108.998 kg Laboratory Results - last 24 hr 01/04/25 06:00: Specimen Source R radial, O2 % 50%, ABG pH 7.34 L, ABG pCO2 56.6 H, ABG pO2 71.3 L, ABG HCO3 29.7 H, ABG Total CO2 31.5 H, ABG O2 Saturation 95, ABG Base Excess 3.9 H, [place] Test Acceptable 01/04/25 11:29: POC Glucose 117 H 01/04/25 16:23: POC Glucose 130 H 01/04/25 21:08: POC Glucose 123 H 01/05/25 05:31: WBC 7.5 D, RBC 5.19, Hgb 16.1, Hct 50.6, MCV 97.5 H, MCH 31.0, MCHC 31.8, RDW 13.0, Plt Count 435 H, MPV 9.6, Neut % (Auto) 78.0, Lymph % (Auto) 11.9, [place] % (Auto) 9.7 H, Eos % (Auto) 0.0 L, Baso % (Auto) 0.1, Neut # (Auto) 5.8, Lymph # (Auto) 0.9, [place] # (Auto) 0.7, Eos # (Auto) 0.0, Baso # (Auto) 0.0, Sodium 139, Potassium 4.3, Chloride 100, Carbon Dioxide 32 H, Anion Gap 11.3, BUN 18, Creatinine 0.70 D, Estimated Creat Clear 112, Estimated GFR 113, Est GFR ( Amer) 137 D, Glucose 130 H, Calcium 8.5, Magnesium 2.1, Total Bilirubin 0.3, AST 59, ALT 56, Alkaline Phosphatase 88, Total Protein 6.6, Albumin 4.1 D, Globulin 2.5, Albumin/Globulin Ratio 1.6 01/05/25 05:57: POC Glucose 124 H I & O for Labs for Last 24 Hours: Intake & Output 01/02/25 01/03/25 01/04/25 01/05/25 23:59 23:59 23:59 23:59 Intake Total 300 / 300 0 / 0 2280 / 2870 590 / 590 Output Total 0 / 0 0 / 0 500 / 500 0 / 0 Balance 300 / 300 0 / 0 1780 / 2370 590 / 590 Weight 117.934 kg 107.547 kg 106.594 kg 108.998 kg Microbiology Reports for the Last 24 Hours: Microbiology 01/04/25 12:00 Sputum - Expectorated Sputum Gram Stain - Final 01/02/25 07:21 Blood Blood Culture - Preliminary NO GROWTH AFTER 48 HOURS 01/02/25 07:21 Blood Blood Culture - Preliminary NO GROWTH AFTER 48 HOURS The patient's infection will respond to the chosen ABx?: Yes Is the patient receiving the right drug, dose, and route?: Yes Could a more targeted ABx be ordered?: No (WBC WNL, AFEBRILE, CONTINUE CURRENT ABX.)
--- NOTE | 2025-01-05 09:31 | P.PN_ITS ---
Subjective *Date: 01/05/25 *Time: 11:46 Interval history: No acute respiratory vents overnight. Patient admits improving respiratory symptoms Pulmonology Exam Inpatient Vital signs and Labs for Last 24 Hours: Temp Pulse Resp BP Pulse Ox O2 Del Method O2 Flow Rate 97.6 F 86 22 133/66 93 L Room Air, Nasal Cannula 15 01/05/25 07:51 01/05/25 07:51 01/05/25 07:51 01/05/25 07:51 01/05/25 07:51 01/05/25 06:44 01/05/25 07:51 FiO2 50 01/05/25 06:09 Laboratory Results - last 24 hr 01/04/25 11:29: POC Glucose 117 H 01/04/25 16:23: POC Glucose 130 H 01/04/25 21:08: POC Glucose 123 H 01/05/25 05:31: WBC 7.5 D, RBC 5.19, Hgb 16.1, Hct 50.6, MCV 97.5 H, MCH 31.0, MCHC 31.8, RDW 13.0, Plt Count 435 H, MPV 9.6, Neut % (Auto) 78.0, Lymph % (Auto) 11.9, [place] % (Auto) 9.7 H, Eos % (Auto) 0.0 L, Baso % (Auto) 0.1, Neut # (Auto) 5.8, Lymph # (Auto) 0.9, [place] # (Auto) 0.7, Eos # (Auto) 0.0, Baso # (Auto) 0.0, Sodium 139, Potassium 4.3, Chloride 100, Carbon Dioxide 32 H, Anion Gap 11.3, BUN 18, Creatinine 0.70 D, Estimated Creat Clear 112, Estimated GFR 113, Est GFR ( Amer) 137 D, Glucose 130 H, Calcium 8.5, Magnesium 2.1, Total Bilirubin 0.3, AST 59, ALT 56, Alkaline Phosphatase 88, Total Protein 6.6, Albumin 4.1 D, Globulin 2.5, Albumin/Globulin Ratio 1.6 01/05/25 05:57: POC Glucose 124 H Temp Pulse Resp BP Pulse Ox O2 Del Method O2 Flow Rate 98.9 F 95 H 22 147/70 H 93 L Nasal Cannula 5 01/03/25 08:00 01/03/25 09:41 01/03/25 08:00 01/03/25 08:00 01/03/25 09:41 01/03/25 09:41 01/03/25 09:41 FiO2 50 01/03/25 05:25 Laboratory Results - last 24 hr 01/02/25 10:45: Troponin I < 0.01 01/02/25 13:25: Troponin I < 0.01 01/02/25 15:20: Chlamy pneumoniae PCR Not detected, Adenovirus (PCR) Not detected, B. pertussis DNA (PCR) Not detected, Coronavirus OC43 (PCR) Not detected, Coronavirus HKU1 (PCR) Not detected, Coronavirus 229E (PCR) Not detected, SARS-CoV-2 (PCR) Not detected, Coronavirus NL63 (PCR) Not detected, Human Metapneumovir PCR Not detected, Influenza A (H1) PCR Not detected, Influ A (H1N1/09) PCR Detected A, Influenza A (H3) PCR Not detected, Influenza Type A (PCR) Not detected, Influenza Type B (PCR) Not detected, M. pneumoniae (PCR) Not detected, Parainfluenza 1 (PCR) Not detected, Parainfluenza 2 (PCR) Not detected, Parainfluenza 3 (PCR) Not detected, Parainfluenza 4 (PCR) Not dete cted, RSV (PCR) Not detected, Entero/Rhino (PCR) Not detected 01/02/25 15:33: POC Glucose 174 H 01/02/25 20:59: POC Glucose 149 H 01/03/25 06:00: VBG pH 7.38, VBG pCO2 49.8, VBG pO2 160.2 H, VBG HCO3 28.7, VBG Total CO2 30.3 H, VBG O2 Saturation 99.0 H, VBG Base Excess 3.6 H, VBG Lactic Acid 1.5 01/03/25 06:13: POC Glucose 112 H 01/03/25 06:45: WBC 14.1 H, RBC 4.95, Hgb 15.3, Hct 47.4, MCV 95.8 H, MCH 30.9, MCHC 32.3, RDW 13.1, Plt Count 361, MPV 9.4, Neut % (Auto) 76.4, Lymph % (Auto) 7.6 L, [place] % (Auto) 14.7 H, Eos % (Auto) 0.6, Baso % (Auto) 0.3, Neut # (Auto) 10.8 H, Lymph # (Auto) 1.1, [place] # (Auto) 2.1 H, Eos # (Auto) 0.1, Baso # (Auto) 0.0, Sodium 137, Potassium 3.9, Chloride 102, Carbon Dioxide 31 H, Anion Gap 7.9, BUN 18 D, Creatinine 0.60 L, Estimated Creat Clear 111, Estimated GFR 135, Est GFR ( Amer) 163, Glucose 113 H D, Calcium 8.2 L, Magnesium 2.3 D, Total Bilirubin 0.2, AST 47, ALT 43, Alkaline Phosphatase 85, Total Protein 6.4, Albumin 3.7 D, Globulin 2.7, Albumin/Globulin Ratio 1.4, TSH 0.08 L, Free T4 1.15 01/03/25 09:26: Specimen Source Left radial, O2 % 6 lpm nc, ABG pH 7.31 L, ABG pCO2 55.0 H, ABG pO2 80.5, ABG HCO3 27.0 H, ABG Total CO2 28.7 H, ABG O2 Saturation 96, ABG Base Excess 0.7, [place] Test Acceptable I & O for Labs for Last 24 Hours: Intake & Output 01/02/25 01/03/25 01/04/25 01/05/25 23:59 23:59 23:59 23:59 Intake Total 300 / 300 0 / 0 2280 / 2870 590 / 590 Output Total 0 / 0 0 / 0 500 / 500 0 / 0 Balance 300 / 300 0 / 0 1780 / 2370 590 / 590 Weight 260 lb 237 lb 1.6 oz 235 lb 240 lb 4.8 oz Intake & Output 12/31/24 01/01/25 01/02/25 01/03/25 23:59 23:59 23:59 23:59 Intake Total 300 / 300 0 / 0 Output Total 0 / 0 0 / 0 Balance 300 / 300 0 / 0 Weight 260 lb 237 lb 1.6 oz Microbiology Reports for the Last 24 Hours: Microbiology 01/04/25 12:00 Sputum - Expectorated Sputum Gram Stain - Final 01/02/25 07:21 Blood Blood Culture - Preliminary NO GROWTH AFTER 48 HOURS 01/02/25 07:21 Blood Blood Culture - Preliminary NO GROWTH AFTER 48 HOURS Microbiology 01/02/25 07:21 Blood Blood Culture - Preliminary NO GROWTH AFTER 24 HOURS 01/02/25 07:21 Blood Blood Culture - Preliminary NO GROWTH AFTER 24 HOURS Constitutional: Present severe distress Head: Present normocephalic and atraumatic ENT: Present normal exam, normal oropharynx and mucous membranes moist Neck: Present normal inspection and full ROM Respiratory: Present respiratory distress, rhonchi, wheezes, diminished air movement and able to speak in complete sentences Cardiac: Present S1/S2, Tachycardia and radial pulses present GI: Present soft and distention; Absent tenderness or guarding Skin: Present intact; Absent cyanosis or jaundice Neuro: Present alert, awake and oriented x 3 Extremities: Present normal inspection; Absent clubbing or cyanosis Psychiatric: Present normal affect and cooperative Assessment and Plan *Assessment and plan (1) Influenza A (H1N1): Status: Acute Category: Medical Code(s): J10.1 - Influenza due to other identified influenza virus with other respiratory manifestations (2) Acute and chronic respiratory failure with hypercapnia: Status: Acute Category: Medical Code(s): J96.22 - Acute and chronic respiratory failure with hypercapnia (3) Pneumonia: Status: Acute Category: Medical Code(s): J18.9 - Pneumonia, unspecified organism Plan Mr. Jeter is a 64-year-old male with reported history of COPD sleep apnea hypert ension presented to the ER with worsening respiratory distress and pulmonary was called for further evaluation and management. He was prior smoker, not smoked in the last 40 years as per the patient. Not using any inhalers at baseline. Admits prior history of sleep apnea however has not been compliant as he lost his machine recently. Afebrile. Hemodynamically stable. Neutrophilic predominant leukocytosis. Respiratory viral PCR panel positive for H1 N1 influenza A. Chest x-ray upon admission bilateral upper lobe predominant patchy airspace disease left greater than right along with vascular congestion. Blood gas upon admission chronic hypercarbic respiratory failure. ABG from this morning worsening hypercarbia. Blood cultures no growth so far. Continue receiving Tamiflu and azithromycin. On initial examination bilateral diffuse wheezing noted. Appeared confused. Initiated on BiPAP therapy. ABG off BiPAP overnight hypercarbic respiratory failure with a pH of 7.34 and pCO2 56.6. Likely a combination of his COPD, sleep apnea and possible OHS in setting of his acute illness including COPD exacerbation and influenza pneumonia. Interval update: No acute respiratory events overnight. Stable oxygen requirements. Plan: Continue oxygen supplementation to maintain O2 saturation goal of 90% and above. Weaned from Ventimask 35% to nasal cannula this morning. DuoNebs every 4 hours along with Pulmicort every 12 scheduled Continue ceftriaxone azithromycin pending culture results Continue Tamiflu x 5 days pending clinical improvement.
[2025-01-05] MEDS: POLYETHYLENE GLYCOL 3350 17 GM PACKET PO (09:59)
[2025-01-05] MEDS: ENOXAPARIN 40MG/0.4ML SYRINGE 40 MG SUBCUT (09:59)
[2025-01-05] MEDS: OSELTAMIVIR 75MG CAPSULE 75 MG PO ×2 (09:59→20:45)
[2025-01-05] MEDS: AMLODIPINE 5MG TABLET 5 MG PO (09:59)
[2025-01-05] MEDS: METHYLPREDNISOLONE SOD SUCC 40MG VIAL 40 MG IV ×2 (10:00→20:45)
[2025-01-05] MEDS: AZITHROMYCIN 250MG TABLET 500 MG PO (10:00)
[2025-01-05 11:18] LABS: POC Glucose,Bedside 108 (70-110)
--- NOTE | 2025-01-05 11:48 | XR_ITS ---
FINAL REPORT CLINICAL HISTORY: SOB COMPARISON: 01/02/2025 FINDINGS: The heart size is normal. The mediastinum is normal. There is no focal infiltrate or edema. Chronic changes are present at the lung bases. There are no pleural effusions. There is no pneumothorax. There is no osseous abnormality. Fusion hardware is noted in the lower cervical spine. IMPRESSION: Chronic changes in the lung bases, with no acute cardiopulmonary process Reviewed, Interpreted and Dictated by Robert Aguirre MD Transcribed by Yolis Busby Authenticated and [facility]
--- NOTE | 2025-01-05 16:23 | P.PN_ITS ---
Subjective *Date: 01/05/25 *Time: 16:23 Interval history: Patient feeling somewhat better today. Still very hard of hearing. No nausea or vomiting. Continues to require supplemental oxygen. Denies any bowel movement in the past 2 to 3 days. Denies chest pain. Afebrile Medical Exam Vital signs and Labs for Last 24 Hours: Vital Signs Temp Pulse Pulse Resp BP Pulse Ox O2 Del Method 01/05/25 15:00 Room Air 01/05/25 13:26 78 01/05/25 13:26 77 01/05/25 13:11 Nasal Cannula 01/05/25 11:25 98.1 F 82 18 131/74 91 L Nasal Cannula 01/05/25 10:58 Nasal Cannula 01/05/25 10:37 75 01/05/25 10:37 73 01/05/25 10:37 88 L Nasal Cannula 01/05/25 09:45 Venturi Mask 01/05/25 09:00 Venturi Mask 01/05/25 07:51 97.6 F 86 22 133/66 93 L 01/05/25 06:44 Room Air, Nasal Cannula 01/05/25 06:09 68 01/05/25 06:09 61 01/05/25 06:09 92 L Venturi Mask 01/05/25 05:00 Room Air 01/05/25 04:00 98.4 F 67 18 120/57 L 91 L Venturi Mask 01/05/25 03:00 Venturi Mask 01/05/25 02:25 71 01/05/25 02:10 77 01/05/25 01:00 Venturi Mask 01/05/25 00:00 98.5 F 74 20 123/57 L 91 L Venturi Mask 01/04/25 23:00 Venturi Mask 01/04/25 22:22 77 01/04/25 22:21 77 01/04/25 21:00 Venturi Mask 01/04/25 20:22 Venturi Mask 01/04/25 20:00 Venturi Mask 01/04/25 20:00 98.9 F 79 18 121/68 91 L Venturi Mask 01/04/25 18:42 Venturi Mask 01/04/25 18:25 79 01/04/25 18:10 73 01/04/25 17:15 Nasal Cannula O2 Flow Rate FiO2 01/05/25 15:00 01/05/25 13:26 01/05/25 13:26 01/05/25 13:11 5 01/05/25 11:25 5 01/05/25 10:58 5 01/05/25 10:37 01/05/25 10:37 01/05/25 10:37 4 01/05/25 09:45 35 01/05/25 09:00 01/05/25 07:51 15 01/05/25 06:44 01/05/25 06:09 01/05/25 06:09 01/05/25 06:09 15 50 01/05/25 05:00 01/05/25 04:00 01/05/25 03:00 15 01/05/25 02:25 01/05/25 02:10 01/05/25 01:00 15 01/05/25 00:00 01/04/25 23:00 15 01/04/25 22:22 01/04/25 22:21 01/04/25 21:00 15 01/04/25 20:22 50 01/04/25 20:00 15 01/04/25 20:00 01/04/25 18:42 01/04/25 18:25 01/04/25 18:10 01/04/25 17:15 5 Intake and Output 01/05/25 01/05/25 01/05/25 07:59 15:59 23:59 Intake Total 590 / 1730 1140 / 1730 Output Total 0 / 0 0 / 0 Balance 590 / 1730 1140 / 1730 Intake: Intake, Oral Amount 240 / 1380 1140 / 1380 Intake, Total IV Amount 350 / 350 Azithromycin 500 mg In 0.9 % 250 / 250 Sodium Chloride 250 ml @ 250 mls/hr IV Q24H [facility] Rx#:[id number] Ceftriaxone 1 gm 1 gm In 0.9 % 100 / 100 Sodium Chloride 50 ml @ 100 mls /hr IV Q24H [facility] Rx#:[id number] Output: Output, Urine Amount 0 / 0 0 / 0 Other: Number of Unmeasured Voids 1 1 Weight 108.998 kg Patient Weight 01/05/25 23:59 Weight 108.998 kg Laboratory Results - last 24 hr 01/04/25 16:23: POC Glucose 130 H 01/04/25 21:08: POC Glucose 123 H 01/05/25 05:31: WBC 7.5 D, RBC 5.19, Hgb 16.1, Hct 50.6, MCV 97.5 H, MCH 31.0, MCHC 31.8, RDW 13.0, Plt Count 435 H, MPV 9.6, Neut % (Auto) 78.0, Lymph % (Auto) 11.9, [place] % (Auto) 9.7 H, Eos % (Auto) 0.0 L, Baso % (Auto) 0.1, Neut # (Auto) 5.8, Lymph # (Auto) 0.9, [place] # (Auto) 0.7, Eos # (Auto) 0.0, Baso # (Auto) 0.0, Sodium 139, Potassium 4.3, Chloride 100, Carbon Dioxide 32 H, Anion Gap 11.3, BUN 18, Creatinine 0.70 D, Estimated Creat Clear 112, Estimated GFR 113, Est GFR ( Amer) 137 D, Glucose 130 H, Calcium 8.5, Magnesium 2.1, Total Bilirubin 0.3, AST 59, ALT 56, Alkaline Phosphatase 88, Total Protein 6.6, Albumin 4.1 D, Globulin 2.5, Albumin/Globulin Ratio 1.6 01/05/25 05:57: POC Glucose 124 H 01/05/25 10:56: POC Glucose 108 I & O for Labs for Last 24 Hours: Intake & Output 01/02/25 01/03/25 01/04/25 01/05/25 23:59 23:59 23:59 23:59 Intake Total 300 / 300 0 / 0 2280 / 2870 1730 / 1730 Output Total 0 / 0 0 / 0 500 / 500 0 / 0 Balance 300 / 300 0 / 0 1780 / 2370 1730 / 1730 Weight 117.934 kg 107.547 kg 106.594 kg 108.998 kg Microbiology Reports for the Last 24 Hours: Microbiology 01/04/25 12:00 Sputum - Expectorated Sputum Gram Stain - Final Constitutional: Present mild distress, obese, chronically ill appearing and cooperative Head: Present atraumatic and normocephalic ENT: Present normal exam Respiratory: Present prolonged expiratory phase, rhonchi, wheezes and normal respiratory effort; Absent crackles Cardiac: Present Reg Rate and Rhythm GI: Present soft and normal bowel sounds; Absent distention or tenderness Extremities: Present normal inspection and full ROM Skin: Present intact; Absent erythema Neuro: Present Grossly Intact, alert, awake, oriented x 3 and moves all extremities Comment:: very hard of hearing Assessment and Plan *Assessment and plan (1) Acute exacerbation of chronic obstructive pulmonary disease: Status: Acute Category: Medical Code(s): J44.1 - Chronic obstructive pulmonary disease with (acute) exacerbation (2) Pneumonia: Status: Acute Category: Medical Code(s): J18.9 - Pneumonia, unspecified organism (3) Influenza A (H1N1): Status: Acute Category: Medical Code(s): J10.1 - Influenza due to other identified influenza virus with other respiratory manifestations (4) Acute and chronic respiratory failure with hypercapnia: Status: Acute Category: Medical Code(s): J96.22 - Acute and chronic respiratory failure with hypercapnia (5) Hypertension: Status: Acute Qualifiers: Hypertension type: unspecified Qualified Code(s): I10 - Essential (primary) hypertension Category: Medical Code(s): I10 - Essential (primary) hypertension Plan Gigi Jeter is a 64-year-old male with a medical history significant for COPD on room air, sleep apnea (formerly on CPAP), hypertension who presents with progressive shortness of breath and cough. He states he recently moved from [place] to [place] to live close to his best friend about a week ago. Prior to that, he had been living out of his truck in [place] for 2 years. He states his cough is mostly nonproductive, and used to be a former smoker but no longer. Denies chest pain, abdominal pain, urinary symptoms, but endorses chills. He used to wear a CPAP for sleep apnea many years ago. Currently requiring 2 L nasal cannula, new requirement. Workup in the ED WBC 12.8, unremarkable VBG, BNP 285, CXR not showing acute findings. He had diffuse wheezing throughout, tachypnea, increased work of breathing and was given breathing treatments, Solu- Medrol, azithromycin with mild improvement in symptoms. Case discussed with ED provider and decision was made to admit patient for acute hypoxic respiratory failure secondary to COPD exacerbation. Continues to require inpatient management. Slow to wean oxygen. Problems addressed as follows: #Acute hypoxic, hypercapnic respiratory failure #COPD exacerbation #Influenza A ? Discussed case with pulmonology, continue supplemental oxygen as needed. On 5 to 6 L nasal cannula today. Continue DuoNebs every 4 hours along with Pulmicort twice daily. Continue ceftriaxone azithromycin for 5 days along with Tamiflu for 5 days. Did not qualify for BiPAP. -So Medrol twice daily. Today is day 4 of 5 of treatment for infection -White count normal at 7.5, hemoglobin 16. Kidney function normal with BUN 18, creatinine 0.7. Repeat BMP, CBC ordered for the more #History of sleep apnea #Suspected obesity hypoventilation syndrome ? Had been on CPAP many years ago, it stopped working and patient was lost to follow-up. ?Will need sleep study after discharge. #Hypertension: Continue home amlodipine 5 mg. Constipation: Initiate docusate senna twice daily and MiraLAX Full code DVT prophylaxis: Lovenox 40 mg Regular diet
[2025-01-05 17:04] LABS: POC Glucose,Bedside 206 (70-110)
[2025-01-05] MEDS: humaLOG 100 UNITS/ML 10ML VIAL (SSI) SUBCUT ×2 (17:08→21:00)
[2025-01-05] MEDS: CEFTRIAXONE 1 GM 1 GM in 0.9 % SODIUM CHLORIDE 50 ML IV (17:09)
--- NOTE | 2025-01-05 17:51 | PC.NURSE ---
Patient alert and oriented. On 5L O2 via NC with patient tolerating well. Other vital signs stable. Denies pain. Up with 1 to BR for voids. No BM. Possible discharge to [facility] tomorrow.
[2025-01-05 21:02] LABS: POC Glucose,Bedside 159 (70-110)
--- NOTE | 2025-01-05 23:16 | PC.NURSE ---
Addendum entered by Yolanda Serrano RN 01/06/25 00:14: Lorazepam order was obtained and administered per JAN. Patient's blood glucose was also checked at this time; the reading was 170. Original Note: I checked on the patient at this time. Patient was complaining of feeling shortness of breath due to anxiety and inability to sleep. He was guided to slow down his breathing ( in through nose, out through mouth ). Oxygen saturations were also checked: the reading was 92% to 93% on 5 L of oxygen. Patient requested to have anything that would help his symptoms and to calm him down. Alek GALAVIZ was paged at this time for new orders.
[2025-01-06] VITALS: BP 135/73; PULSE 75; RESP 20; TEMP 36.9
[2025-01-06] MEDS: LORazepam 1MG TABLET 1 MG PO (00:07)
[2025-01-06 00:19] LABS: POC Glucose,Bedside 170 (70-110)
[2025-01-06] MEDS: IPRATROPIUM/ALBUTEROL 3 ML NEB IH ×3 (03:00→11:04)
[2025-01-06 04:00] VITALS: BP 125/82; PULSE 93; RESP 20; TEMP 36.6; O2SAT 92; BMI 36.5
--- NOTE | 2025-01-06 04:36 | PC.NURSE ---
Patient is alert and oriented x4. Patient is very hard of hearing. He complained of shortness of breath, audible wheezing, and anxiousness once earlier this shift, of which was addressed with a one time dose of Ativan; after receiving, the patient was observed to have eyes closed and even/unlabored respirations. Patient also reported satisfaction and the ability to sleep after receiving it. He has remained on 5 L of oxygen via humidified cannula this shift; oxygen saturations have remained > 90%. Upon auscultation of his lungs, diminished air movement and scattered, expiratory wheezing could be heard. Auscultation of his heart and bowels were within normal findings. Abdomen is round and soft with palpation. Patient has been ambulating to the bathroom with assistance; patient tends to become easily exerted with activity. Scheduled medications were administered per JAN. Breathing treatments have been given. Patient was given sugar-free chocolate ice cream at bedtime. Vital signs have remained relatively stable this shift. ACHS fingersticks performed. At this time, the patient is resting in bed without any further complaints. No acute changes noted thus far. Call light within reach.
[2025-01-06 06:14] LABS: Basophils % 0.3 % (0.1-2.0); Hematocrit 47.4 % (42.0-52.0); Hemoglobin 15.6 g/dL (14.1-18.0); Lymphocytes # 0.9 K/mm3 (0.7-4.5); Lymphocytes % 15.2 % (10-50); Mean Corpuscular HGB Conc 32.9 g/dL (31.8-35.4); Mean Corpuscular Hemoglobin 31.1 pg (27.0-31.2); Mean Corpuscular Volume 94.4 fl (80-94); Mean Platelet Volume 9.1 fl (7.4-10.4); Monocytes # 0.7 K/mm3 (0.1-1.0); Monocytes % 12.2 % (1.7-9.3); Neutrophils # 4.3 K/mm3 (1.8-7.8); Platelet Count 417 K/mm3 (142-424); Red Blood Count 5.02 M/mm3 (4.60-6.20); Red Cell Distribution Width 12.8 % (11.5-17.5)
[2025-01-06 06:21] LABS: Albumin Level 3.4 g/dl (3.5-5.0); Chloride 100 mmol/L (98-107)
[2025-01-06 06:22] LABS: Potassium 4.4 mmoL/L (3.5-5.1); Sodium 137 mmol/L (136-145)
[2025-01-06 06:24] LABS: Alanine Aminotransferase 91 U/L (12-78); Alkaline Phosphatase 83 U/L (38-126); Anion Gap 9.4 mEq/L (5-15); Aspartate Amino Transferase 65 U/L (17-59); Bilirubin,Total 0.2 mg/dl (0.2-1.3); Blood Urea Nitrogen 18 mg/dl (9-20); Carbon Dioxide 32 mmol/L (22.0-30.0); Creatinine Clearance Estimated 112 mL/min (50-200); Estimated Glomerular Filt Rate 135 ml/min (>60); GFR (African American) 163 ML/MIN (>60)
[2025-01-06 06:25] LABS: Albumin/Globulin Ratio 1.3 (1.1-1.8); Calcium 8.4 mg/dl (8.4-10.2); Globulin 2.6 g/dL (1.3-3.2); Glucose 140 mg/dl (74-100); Magnesium 1.9 mg/dl (1.6-2.3)
[2025-01-06 06:26] LABS: POC Glucose,Bedside 122 (70-110)
[2025-01-06 06:29] VITALS: PULSE 73; O2SAT 92
[2025-01-06] MEDS: BUDESONIDE 0.5MG/2ML NEB 0.5 MG IH (06:29)
[2025-01-06 07:50] VITALS: BP 147/73; PULSE 91; RESP 20; TEMP 36.7; O2SAT 94
[2025-01-06] MEDS: METHYLPREDNISOLONE SOD SUCC 40MG VIAL 40 MG IV (08:27)
[2025-01-06] MEDS: ENOXAPARIN 40MG/0.4ML SYRINGE 40 MG SUBCUT (08:27)
[2025-01-06] MEDS: OSELTAMIVIR 75MG CAPSULE 75 MG PO (08:28)
[2025-01-06] MEDS: AZITHROMYCIN 250MG TABLET 500 MG PO (08:28)
[2025-01-06] MEDS: AMLODIPINE 5MG TABLET 5 MG PO (08:28)
--- NOTE | 2025-01-06 08:54 | EXP.ACUTE.PN ---
Subjective *Date: 01/06/25 *Time: 08:54 Medical Exam Vital signs and Labs for Last 24 Hours: Vital Signs Temp Pulse Pulse Resp BP Pulse Ox O2 Del Method 01/06/25 07:50 98.1 F 91 H 20 147/73 H 94 L Nasal Cannula 01/06/25 06:35 Nasal Cannula 01/06/25 06:29 73 01/06/25 06:29 92 L Nasal Cannula 01/06/25 05:00 Nasal Cannula 01/06/25 04:00 97.8 F 93 H 20 125/82 92 L Nasal Cannula 01/06/25 03:00 Nasal Cannula 01/06/25 01:00 Nasal Cannula 01/06/25 00:00 98.4 F 75 20 135/73 01/05/25 23:00 Nasal Cannula 01/05/25 21:58 80 01/05/25 21:58 82 01/05/25 21:00 Nasal Cannula 01/05/25 20:00 80 19 91 L Nasal Cannula 01/05/25 20:00 98.3 F 82 19 123/50 L 91 L Nasal Cannula 01/05/25 18:52 Nasal Cannula 01/05/25 18:03 81 01/05/25 18:03 84 01/05/25 18:03 92 L Nasal Cannula 01/05/25 17:00 Nasal Cannula 01/05/25 16:00 98.3 F 80 18 122/58 L 93 L Nasal Cannula 01/05/25 15:00 Room Air 01/05/25 13:26 78 01/05/25 13:26 77 01/05/25 13:11 Nasal Cannula 01/05/25 11:25 98.1 F 82 18 131/74 91 L Nasal Cannula 01/05/25 10:58 Nasal Cannula 01/05/25 10:37 75 01/05/25 10:37 73 01/05/25 10:37 88 L Nasal Cannula 01/05/25 09:45 Venturi Mask 01/05/25 09:00 Venturi Mask O2 Flow Rate FiO2 01/06/25 07:50 5 01/06/25 06:35 5 01/06/25 06:29 01/06/25 06:29 6 01/06/25 05:00 5 01/06/25 04:00 8 01/06/25 03:00 5 01/06/25 01:00 5 01/06/25 00:00 01/05/25 23:00 5 01/05/25 21:58 01/05/25 21:58 01/05/25 21:00 5 01/05/25 20:00 5 01/05/25 20:00 8 01/05/25 18:52 5 01/05/25 18:03 01/05/25 18:03 01/05/25 18:03 6 01/05/25 17:00 5 01/05/25 16:00 8 01/05/25 15:00 01/05/25 13:26 01/05/25 13:26 01/05/25 13:11 5 01/05/25 11:25 5 01/05/25 10:58 5 01/05/25 10:37 01/05/25 10:37 01/05/25 10:37 4 01/05/25 09:45 35 01/05/25 09:00 Intake and Output 01/05/25 01/06/25 01/06/25 23:59 07:59 15:59 Intake Total 1200 / 3728 798 / 918 120 / 918 Output Total 0 / 0 Balance 1200 / 3728 798 / 918 120 / 918 Intake: Intake, Oral Amount 1200 / 3378 798 / 918 120 / 918 Output: Output, Urine Amount 0 / 0 Other: Number of Unmeasured Voids 1 Number of Bowel Movements 1 Weight 109.361 kg Patient Weight 01/06/25 23:59 Weight 109.361 kg Laboratory Results - last 24 hr 01/05/25 10:56: POC Glucose 108 01/05/25 16:51: POC Glucose 206 H 01/05/25 20:51: POC Glucose 159 H 01/06/25 00:11: POC Glucose 170 H 01/06/25 05:55: WBC 6.0, RBC 5.02, Hgb 15.6, Hct 47.4, MCV 94.4 H, MCH 31.1, MCHC 32.9, RDW 12.8, Plt Count 417, MPV 9.1, Neut % (Auto) 72.0, Lymph % (Auto) 15.2, [place] % (Auto) 12.2 H, Eos % (Auto) 0.0 L, Baso % (Auto) 0.3, Neut # (Auto) 4.3, Lymph # (Auto) 0.9, [place] # (Auto) 0.7, Eos # (Auto) 0.0, Baso # (Auto) 0.0, Sodium 137, Potassium 4.4, Chloride 100, Carbon Dioxide 32 H, Anion Gap 9.4, BUN 18, Creatinine 0.60 L, Estimated Creat Clear 112, Estimated GFR 135, Est GFR ( Amer) 163, Glucose 140 H, Calcium 8.4, Magnesium 1.9, Total Bilirubin 0.2, AST 65 H, ALT 91 H D, Alkaline Phosphatase 83, Total Protein 6.0 L, Albumin 3.4 L D, Globulin 2.6, Albumin/Globulin Ratio 1.3 01/06/25 06:17: POC Glucose 122 H I & O for Labs for Last 24 Hours: Intake & Output 01/03/25 01/04/25 01/05/25 01/06/25 23:59 23:59 23:59 23:59 Intake Total 0 / 0 2280 / 2870 2930 / 3728 918 / 918 Output Total 0 / 0 500 / 500 0 / 0 Balance 0 / 0 1780 / 2370 2930 / 3728 918 / 918 Weight 107.547 kg 106.594 kg 108.998 kg 109.361 kg Microbiology Reports for the Last 24 Hours: Microbiology 01/02/25 07:21 Blood Blood Culture - Preliminary NO GROWTH AFTER 4 DAYS 01/02/25 07:21 Blood Blood Culture - Preliminary NO GROWTH AFTER 4 DAYS Assessment and Plan *Assessment and plan (1) Acute exacerbation of chronic obstructive pulmonary disease: Status: Acute Category: Medical Code(s): J44.1 - Chronic obstructive pulmonary disease with (acute) exacerbation (2) Pneumonia: Status: Acute Category: Medical Code(s): J18.9 - Pneumonia, unspecified organism (3) Influenza A (H1N1): Status: Acute Category: Medical Code(s): J10.1 - Influenza due to other identified influenza virus with other respiratory manifestations (4) Acute and chronic respiratory failure with hypercapnia: Status: Acute Category: Medical Code(s): J96.22 - Acute and chronic respiratory failure with hypercapnia (5) Hypertension: Status: Acute Qualifiers: Hypertension type: unspecified Qualified Code(s): I10 - Essential (primary) hypertension Category: Medical Code(s): I10 - Essential (primary) hypertension Plan Gigi Jeter is a 64-year-old male with a medical history significant for COPD on room air, sleep apnea (formerly on CPAP), hypertension who presents with progressive shortness of breath and cough. He states he recently moved from [place] to [place] to live close to his best friend about a week ago. Prior to that, he had been living out of his truck in [place] for 2 years. He states his cough is mostly nonproductive, and used to be a former smoker but no longer. Denies chest pain, abdominal pain, urinary symptoms, but endorses chills. He used to wear a CPAP for sleep apnea many years ago. Currently requiring 2 L nasal cannula, new requirement. Workup in the ED WBC 12.8, unremarkable VBG, BNP 285, CXR not showing acute findings. He had diffuse wheezing throughout, tachypnea, increased work of breathing and was given breathing treatments, Solu-Medrol, azithromycin with mild improvement in symptoms. Case discussed with ED provider and decision was made to admit patient for acute hypoxic respiratory failure secondary to COPD exacerbation. Continues to require inpatient management. Slow to wean oxygen. Problems addressed as follows: #Acute hypoxic, hypercapnic respiratory failure #COPD exacerbation #Influenza A ? Discussed case with pulmonology, continue supplemental oxygen as needed. On 5 to 6 L nasal cannula today. Continue DuoNebs every 4 hours along with Pulmicort twice daily. Continue ceftriaxone azithromycin for 5 days along with Tamiflu for 5 days. Did not qualify for BiPAP. -So Medrol twice daily. Today is day 4 of 5 of treatment for infection -White count normal at 7.5, hemoglobin 16. Kidney function normal with BUN 18, creatinine 0.7. Repeat BMP, CBC ordered for the more #History of sleep apnea #Suspected obesity hypoventilation syndrome ? Had been on CPAP many years ago, it stopped working and patient was lost to follow-up. ?Will need sleep study after discharge. #Hypertension: Continue home amlodipine 5 mg. Constipation: Initiate docusate senna twice daily and MiraLAX Full code DVT prophylaxis: Lovenox 40 mg Regular diet
--- NOTE | 2025-01-06 09:41 | P.PN_ITS ---
Subjective *Date: 01/06/25 *Time: 11:21 Interval history: No acute respiratory vents overnight. Patient admits improving respiratory symptoms Pulmonology Exam Inpatient Vital signs and Labs for Last 24 Hours: Temp Pulse Resp BP Pulse Ox O2 Del Method O2 Flow Rate 98.1 F 91 H 20 147/73 H 94 L Nasal Cannula 5 01/06/25 07:50 01/06/25 07:50 01/06/25 07:50 01/06/25 07:50 01/06/25 07:50 01/06/25 09:00 01/06/25 09:00 FiO2 35 01/05/25 09:45 Laboratory Results - last 24 hr 01/05/25 10:56: POC Glucose 108 01/05/25 16:51: POC Glucose 206 H 01/05/25 20:51: POC Glucose 159 H 01/06/25 00:11: POC Glucose 170 H 01/06/25 05:55: WBC 6.0, RBC 5.02, Hgb 15.6, Hct 47.4, MCV 94.4 H, MCH 31.1, MCHC 32.9, RDW 12.8, Plt Count 417, MPV 9.1, Neut % (Auto) 72.0, Lymph % (Auto) 15.2, [place] % (Auto) 12.2 H, Eos % (Auto) 0.0 L, Baso % (Auto) 0.3, Neut # (Auto) 4.3, Lymph # (Auto) 0.9, [place] # (Auto) 0.7, Eos # (Auto) 0.0, Baso # (Auto) 0.0, Sodium 137, Potassium 4.4, Chloride 100, Carbon Dioxide 32 H, Anion Gap 9.4, BUN 18, Creatinine 0.60 L, Estimated Creat Clear 112, Estimated GFR 135, Est GFR ( Amer) 163, Glucose 140 H, Calcium 8.4, Magnesium 1.9, Total Bilirubin 0.2, AST 65 H, ALT 91 H D, Alkaline Phosphatase 83, Total Protein 6.0 L, Albumin 3.4 L D, Globulin 2.6, Albumin/Globulin Ratio 1.3 01/06/25 06:17: POC Glucose 122 H Temp Pulse Resp BP Pulse Ox O2 Del Method O2 Flow Rate 98.9 F 95 H 22 147/70 H 93 L Nasal Cannula 5 01/03/25 08:00 01/03/25 09:41 01/03/25 08:00 01/03/25 08:00 01/03/25 09:41 01/03/25 09:41 01/03/25 09:41 FiO2 50 01/03/25 05:25 Laboratory Results - last 24 hr 01/02/25 10:45: Troponin I < 0.01 01/02/25 13:25: Troponin I < 0.01 01/02/25 15:20: Chlamy pneumoniae PCR Not detected, Adenovirus (PCR) Not detected, B. pertussis DNA (PCR) Not detected, Coronavirus OC43 (PCR) Not detected, Coronavirus HKU1 (PCR) Not detected, Coronavirus 229E (PCR) Not detected, SARS-CoV-2 (PCR) Not detected, Coronavirus NL63 (PCR) Not detected, Human Metapneumovir PCR Not detected, Influenza A (H1) PCR Not detected, Influ A (H1N1/09) PCR Detected A, Influenza A (H3) PCR Not detected, Influenza Type A (PCR) Not detected, Influenza Type B (PCR) Not detected, M. pneumoniae (PCR) Not detected, Parainfluenza 1 (PCR) Not detected, Parainfluenza 2 (PCR) Not detected, Parainfluenza 3 (PCR) Not detected, Parainfluenza 4 (PCR) Not detected, RSV (PCR) Not detected, Entero/Rhino (PCR) Not detected 01/02/25 15:33: POC Glucose 174 H 01/02/25 20:59: POC Glucose 149 H 01/03/25 06:00: VBG pH 7.38, VBG pCO2 49.8, VBG pO2 160.2 H, VBG HCO3 28.7, VBG Total CO2 30.3 H, VBG O2 Saturation 99.0 H, VBG Base Excess 3.6 H, VBG Lactic Acid 1.5 01/03/25 06:13: POC Glucose 112 H 01/03/25 06:45: WBC 14.1 H, RBC 4.95, Hgb 15.3, Hct 47.4, MCV 95.8 H, MCH 30.9, MCHC 32.3, RDW 13.1, Plt Count 361, MPV 9.4, Neut % (Auto) 76.4, Lymph % (Auto) 7.6 L, [place] % (Auto) 14.7 H, Eos % (Auto) 0.6, Baso % (Auto) 0.3, Neut # (Auto) 10.8 H, Lymph # (Auto) 1.1, [place] # (Auto) 2.1 H, Eos # (Auto) 0.1, Baso # (Auto) 0.0, Sodium 137, Potassium 3.9, Chloride 102, Carbon Dioxide 31 H, Anion Gap 7.9, BUN 18 D, Creatinine 0.60 L, Estimated Creat Clear 111, Estimated GFR 135, Est GFR ( Amer) 163, Glucose 113 H D, Calcium 8.2 L, Magnesium 2.3 D, Total Bilirubin 0.2, AST 47, ALT 43, Alkaline Phosphatase 85, Total Protein 6.4, Albumin 3.7 D, Globulin 2.7, Albumin/Globulin Ratio 1.4, TSH 0.08 L, Free T4 1.15 01/03/25 09:26: Specimen Source Left radial, O2 % 6 lpm nc, ABG pH 7.31 L, ABG pCO2 55.0 H, ABG pO2 80.5, ABG HCO3 27.0 H, ABG Total CO2 28.7 H, ABG O2 Saturation 96, ABG Base Excess 0.7, [place] Test Acceptable I & O for Labs for Last 24 Hours: Intake & Output 01/03/25 01/04/25 01/05/25 01/06/25 23:59 23:59 23:59 23:59 Intake Total 0 / 0 2280 / 2870 2930 / 3728 918 / 918 Output Total 0 / 0 500 / 500 0 / 0 Balance 0 / 0 1780 / 2370 2930 / 3728 918 / 918 Weight 237 lb 1.6 oz 235 lb 240 lb 4.8 oz 241 lb 1.6 oz Intake & Output 12/31/24 01/01/25 01/02/25 01/03/25 23:59 23:59 23:59 23:59 Intake Total 300 / 300 0 / 0 Output Total 0 / 0 0 / 0 Balance 300 / 300 0 / 0 Weight 260 lb 237 lb 1.6 oz Microbiology Reports for the Last 24 Hours: Microbiology 01/02/25 07:21 Blood Blood Culture - Preliminary NO GROWTH AFTER 4 DAYS 01/02/25 07:21 Blood Blood Culture - Preliminary NO GROWTH AFTER 4 DAYS Microbiology 01/02/25 07:21 Blood Blood Culture - Preliminary NO GROWTH AFTER 24 HOURS 01/02/25 07:21 Blood Blood Culture - Preliminary NO GROWTH AFTER 24 HOURS Constitutional: Present severe distress Head: Present normocephalic and atraumatic ENT: Present normal exam, normal oropharynx and mucous membranes moist Neck: Present normal inspection and full ROM Respiratory: Present respiratory distress, rhonchi, wheezes, diminished air movement and able to speak in complete sentences Cardiac: Present S1/S2, Tachycardia and radial pulses present GI: Present soft and distention; Absent tenderness or guarding Skin: Present intact; Absent cyanosis or jaundice Neuro: Present alert, awake and oriented x 3 Extremities: Present normal inspection; Absent clubbing or cyanosis Psychiatric: Present normal affect and cooperative Assessment and Plan *Assessment and plan (1) Acute exacerbation of chronic obstructive pulmonary disease: Status: Acute Category: Medical Code(s): J44.1 - Chronic obstructive pulmonary disease with (acute) exacerbation (2) Pneumonia: Status: Acute Category: Medical Code(s): J18.9 - Pneumonia, unspecified organism (3) Influenza A (H1N1): Status: Acute Category: Medical Code(s): J10.1 - Influenza due to other identified influenza virus with other respiratory manifestations (4) Acute and chronic respiratory failure with hypercapnia: Status: Acute Category: Medical Code(s): J96.22 - Acute and chronic respiratory failure with hypercapnia Plan Mr. Jeter is a 64-year-old male with reported history of COPD sleep apnea hypertension presented to the ER with worsening respiratory distress and pulmonary was called for further evaluation and management. He admits he was a prior smoker, non-smoker for the last 35 years. Diagnosed with sleep apnea around 10 years ago has not been compliant with his CPAP therapy since then. Not using any inhalers or on any oxygen supplementation at baseline. Not regularly following with physicians at baseline Afebrile. Hemodynamically stable. Neutrophilic predominant leukocytosis. Respiratory viral PCR panel positive for H1 N1 influenza A. Chest x-ray upon admission bilateral upper lobe predominant patchy airspace disease left greater than right along with vascular congestion. Blood gas upon admission chronic hypercarbic respiratory failure. ABG from this morning worsening hypercarbia. Blood cultures no growth so far. Continue receiving Tamiflu and azithromycin. On initial examination bilateral diffuse wheezing noted. Appeared confused. Initiated on BiPAP therapy. ABG off BiPAP overnight hypercarbic respiratory failure with a pH of 7.34 and pCO2 56.6. Likely a combination of his COPD, sleep apnea and possible OHS in setting of his acute illness including COPD exacerbation and influenza pneumonia. Interval update: Improving leukocytosis. Chest x-ray from yesterday likely chronic changes with no acute airspace disease, relatively stable from his admission chest x-ray. Sputum cultures gram-positive cocci, bacilli along with gram-negative rods Plan: Continue oxygen supplementation to maintain O2 saturation goal of 90% and above. Continued needing 4 to 5 L nasal cannula oxygen supplementation to maintain O2 saturation goal of 90% and DuoNebs every 4 hours along with Pulmicort every 12 scheduled. Can be discharged home on Trelegy 100 inhaler along with DuoNebs 4 times daily as needed Continue ceftriaxone azithromycin pending culture results. Antibiotics can be weaned to cefdinir to complete a total of 5-day course upon discharge Continue Tamiflu x 10 days # Thank you for involving pulmonary in this patient care. Will follow the patient in pulmonary clinic 1 to 2 weeks post discharge. Will evaluate for the need for noninvasive ventilator therapy for his Chypercarbic respiratory failure likely from a combination of sleep apnea and possible OHS/COPD as an outpatient basis
[2025-01-06 10:00] VITALS: BMI 36.4
[2025-01-06 11:04] VITALS: PULSE 87; PULSE 88
[2025-01-06 11:26] LABS: POC Glucose,Bedside 115 (70-110)
--- NOTE | 2025-01-06 11:36 | EXP.DC.SUM ---
General Admission date:: 01/03/25 Discharge date: 01/06/25 HPI HPI HPI: Gigi Jeter is a 64-year-old male with a medical history significant for COPD on room air, sleep apnea (formerly on CPAP), hypertension who presents with progressive shortness of breath and cough. He states he recently moved from [place] to [place] to live close to his best friend about a week ago. Prior to that, he had been living out of his truck in [place] for 2 years. He states his cough is mostly nonproductive, and used to be a former smoker but no longer. Denies chest pain, abdominal pain, urinary symptoms, but endorses chills. He used to wear a CPAP for sleep apnea many years ago. Currently requiring 2 L nasal cannula, new requirement. Workup in the ED WBC 12.8, unremarkable VBG, BNP 285, CXR not showing acute findings. He had diffuse wheezing throughout, tachypnea, increased work of breathing and was given breathing treatments, Solu-Medrol, azithromycin with mild improvement in symptoms. Case discussed with ED provider and decision was made to admit patient for acute hypoxic respiratory failure secondary to COPD exacerbation. Hospital Course Hospital Course Hospital Course: Gigi Jeter is a 64-year-old male with a medical history significant for COPD on room air, sleep apnea (formerly on CPAP), hypertension who presents with progressive shortness of breath and cough. He states he recently moved from [place] to [place] to live close to his best friend about a week ago. Prior to that, he had been living out of his truck in [place] for 2 years. He states his cough is mostly nonproductive, and used to be a former smoker but no longer. Denies chest pain, abdominal pain, urinary symptoms, but endorses chills. He used to wear a CPAP for sleep apnea many years ago. Currently requiring 2 L nasal cannula, new requirement. Workup in the ED WBC 12.8, unremarkable VBG, BNP 285, CXR not showing acute findings. He had diffuse wheezing throughout, tachypnea, increased work of breathing and was given breathing treatments, Solu-Medrol, azithromycin with mild improvement in symptoms. Case discussed with ED provider and decision was made to admit patient for acute hypoxic respiratory failure secondary to COPD exacerbation. Patient is showing gradual improvement during admission. Oxygen slowly weaning during the day. Still requiring 5 L at night. White count is normalized. Tolerating p.o. intake. Afebrile. Stable to discharge to rehab for further management and to complete antibiotic and antiviral course. Problems addressed as follows: #Acute hypoxic, hypercapnic respiratory failure #COPD exacerbation #Influenza A ? Patient admitted for respiratory failure. Initially hypercapnic necessitating BiPAP. Overall did well and gradually weaned off BiPAP. Able to maintain on just supplemental oxygen. Serial blood gases did not show recurrence of hypercapnia as his underlying infection showed improvement. Initiated on Tamiflu and antibiotics for respiratory illness. Pulmonology was consulted to assist with care. Recommend continuing DuoNebs every 4-6 hours as needed. Will initiate Trelegy 100 inhaler discharge. Pulmonology recommended Tamiflu twice daily to complete 10-day course given severity of illness. Will complete antibiotics with additional doses of cefdinir at discharge. Patient's pulse ox on day of discharge at rest without supplemental oxygen was 88%. Continue nasal cannula oxygen 2 to 4 L as needed during the day. Increased to 4 to 5 L at night because of his nocturnal hypoxia. Would benefit from repeat labs in 1 week. Kidney function, electrolytes, white count all normalized by day of discharge. Overall doing well. Working with therapy. Necessitating rehab for further benefit and improvement in functionality. #History of sleep apnea #Suspected obesity hypoventilation syndrome ? Had been on CPAP many years ago, it stopped working and patient was lost to follow-up. Will need follow-up with pulmonology as an outpatient for further management including sleep study. Continue to wear oxygen in the meantime. Did not meet criteria for BiPAP at discharge. Necessitating 4 to 5 L oxygen at night while asleep. #Hypertension: Continue home amlodipine 5 mg. Constipation: Having bowel movements now. Continue MiraLAX daily. Patient's care complicated by his difficulty in hearing and poor understanding of his health conditions. Needs extensive explanation. Total time spent on discharge 32 minutes in counseling, documentation, chart review, and direct care with patient. Exam Data for Last 24 hours Vital signs and Labs for Last 24 Hours: Temp Pulse Resp BP Pulse Ox O2 Del Method O2 Flow Rate 98.1 F 88 20 147/73 H 94 L Nasal Cannula 5 01/06/25 07:50 01/06/25 11:04 01/06/25 07:50 01/06/25 07:50 01/06/25 07:50 01/06/25 11:00 01/06/25 11:00 FiO2 35 01/05/25 09:45 Laboratory Results - last 24 hr 01/05/25 16:51: POC Glucose 206 H 01/05/25 20:51: POC Glucose 159 H 01/06/25 00:11: POC Glucose 170 H 01/06/25 05:55: WBC 6.0, RBC 5.02, Hgb 15.6, Hct 47.4, MCV 94.4 H, MCH 31.1, MCHC 32.9, RDW 12.8, Plt Count 417, MPV 9.1, Neut % (Auto) 72.0, Lymph % (Auto) 15.2, [place] % (Auto) 12.2 H, Eos % (Auto) 0.0 L, Baso % (Auto) 0.3, Neut # (Auto) 4.3, Lymph # (Auto) 0.9, [place] # (Auto) 0.7, Eos # (Auto) 0.0, Baso # (Auto) 0.0, Sodium 137, Potassium 4.4, Chloride 100, Carbon Dioxide 32 H, Anion Gap 9.4, BUN 18, Creatinine 0.60 L, Estimated Creat Clear 112, Estimated GFR 135, Est GFR ( Amer) 163, Glucose 140 H, Calcium 8.4, Magnesium 1.9, Total Bilirubin 0.2, AST 65 H, ALT 91 H D, Alkaline Phosphatase 83, Total Protein 6.0 L, Albumin 3.4 L D, Globulin 2.6, Albumin/Globulin Ratio 1.3 01/06/25 06:17: POC Glucose 122 H 01/06/25 11:19: POC Glucose 115 H I & O for Last 24 hours: Intake & Output 01/03/25 01/04/25 01/05/25 01/06/25 23:59 23:59 23:59 23:59 Intake Total 0 / 0 2280 / 2870 2930 / 3728 918 / 918 Output Total 0 / 0 500 / 500 0 / 0 Balance 0 / 0 1780 / 2370 2930 / 3728 918 / 918 Weight 107.547 kg 106.594 kg 108.998 kg 109 kg Microbiology Reports for the Last 24 Hours: Microbiology 01/04/25 12:00 Sputum - Expectorated Sputum Gram Stain - Final 01/04/25 12:00 Sputum - Expectorated Sputum Sputum Culture - Final 01/02/25 07:21 Blood Blood Culture - Preliminary NO GROWTH AFTER 4 DAYS 01/02/25 07:21 Blood Blood Culture - Preliminary NO GROWTH AFTER 4 DAYS Constitutional Constitutional: mild distress, obese, chronically ill appearing and cooperative *Routine HEENT Exam Head: Present normocephalic and atraumatic Eye: Present EOMI and PERRL ENT: Present mucous membranes moist *Routine Neck Exam Neck: Present supple; Absent lymphadenopathy Routine Chest/Breast/Axilla Exam Chest wall: Absent tenderness Comments: Scar along right upper chest *Routine Respiratory Exam Respiratory: Present prolonged expiratory phase, rhonchi, distant breath sounds and diminished air movement; Absent respiratory distress or wheezes *Routine Cardiovascular Exam Cardiovascular: Present RRR *Routine Abdominal Exam Abdominal: Present soft and normoactive bowel sounds; Absent tenderness *Routine Rectal Exam Patient deferred: visual exam *Routine Exam Patient deferred: penile exam *Routine Extremities Exam Extremities: Absent cyanosis, clubbing or edema *Routine Skin Exam Skin: Present intact and warm; Absent cyanosis or rash *Routine Neurological Exam Neurological: Present alert, oriented X3 and moving all extremities; Absent altered mental status Comments: Very hard of hearing Results Data Completed and Pending Labs on day of discharge: Labs from last 24 hours 01/06/25 01/06/25 01/06/25 11:19 06:17 05:55 WBC 6.0 RBC 5.02 Hgb 15.6 Hct 47.4 MCV 94.4 H MCH 31.1 MCHC 32.9 RDW 12.8 Plt Count 417 MPV 9.1 Neut % (Auto) 72.0 Lymph % (Auto) 15.2 [place] % (Auto) 12.2 H Eos % (Auto) 0.0 L Baso % (Auto) 0.3 Neut # (Auto) 4.3 Lymph # (Auto) 0.9 [place] # (Auto) 0.7 Eos # (Auto) 0.0 Baso # (Auto) 0.0 Sodium 137 Potassium 4.4 Chloride 100 Carbon Dioxide 32 H Anion Gap 9.4 BUN 18 Creatinine 0.60 L Estimated Creat Clear 112 Estimated GFR 135 Est GFR ( Amer) 163 Glucose 140 H POC Glucose 115 H 122 H Calcium 8.4 Magnesium 1.9 Total Bilirubin 0.2 AST 65 H ALT 91 H D Alkaline Phosphatase 83 Total Protein 6.0 L Albumin 3.4 L D Globulin 2.6 Albumin/Globulin Ratio 1.3 01/06/25 01/05/25 01/05/25 00:11 20:51 16:51 WBC RBC Hgb Hct MCV MCH MCHC RDW Plt Count MPV Neut % (Auto) Lymph % (Auto) [place] % (Auto) Eos % (Auto) Baso % (Auto) Neut # (Auto) Lymph # (Auto) [place] # (Auto) Eos # (Auto) Baso # (Auto) Sodium Potassium Chloride Carbon Dioxide Anion Gap BUN Creatinine Estimated Creat Clear Estimated GFR Est GFR ( Amer) Glucose POC Glucose 170 H 159 H 206 H Calcium Magnesium Total Bilirubin AST ALT Alkaline Phosphatase Total Protein Albumin Globulin Albumin/Globulin Ratio Preliminary micro results at discharge 01/02/25 07:21 Blood Culture - Preliminary Blood NO GROWTH AFTER 4 DAYS 01/02/25 07:21 Blood Culture - Preliminary Blood NO GROWTH AFTER 4 DAYS DS: Diagnosis Discharge Diagnosis (1) Pneumonia: Status: Acute Code(s): J18.9 - Pneumonia, unspecified organism (2) Acute exacerbation of chronic obstructive pulmonary disease: Status: Acute Code(s): J44.1 - Chronic obstructive pulmonary disease with (acute) exacerbation (3) Influenza A (H1N1): Status: Acute Code(s): J10.1 - Influenza due to other identified influenza virus with other respiratory manifestations (4) Acute and chronic respiratory failure with hypercapnia: Status: Acute Code(s): J96.22 - Acute and chronic respiratory failure with hypercapnia (5) Hypertension: Status: Acute Code(s): I10 - Essential (primary) hypertension Qualifiers: Hypertension type: unspecified Qualified Code(s): I10 - Essential (primary) hypertension (6) Obesity (BMI 30-39.9): Status: Acute Code(s): E66.9 - Obesity, unspecified Meds Home Medications and Allergies Home Medications ?Medication ?Instructions ?Recorded ?Confirmed ?Type amlodipine 5 mg tablet 5 mg PO DAILY 30 days #30 tabs 01/06/25 Rx cefdinir 300 mg capsule 300 mg PO BID 2 days #4 caps 01/06/25 Rx fluticasone fur. 100 mcg-umeclid 1 inh inhalation DAILY #60 ea 01/06/25 Rx 62.5 mcg-vilant 25 mcg inhalat.powder (Trelegy Ellipta) ipratropium 0.5 mg-albuterol 3 mg 3 ml inhalation Q6RT 30 days #180 01/06/25 Rx (2.5 mg base)/3 mL nebulization mL soln oseltamivir 75 mg capsule (Tamiflu) 75 mg PO BID 6 days #12 caps 01/06/25 Rx polyethylene glycol 3350 17 gram 17 g PO DAILY 30 days #30 ea 01/06/25 Rx oral powder packet (HealthyLax) New Prescriptions to Start Prescriptions: amlodipine Derick,Александр cefdinir Derick,Александр [id number] [Trelegy Ellipta] Derick,Александр ipratropium-albuterol Derick,Александр oseltamivir [Tamiflu] Derick,Александр polyethylene glycol 3350 [HealthyLax] Derick,Александр Allergies Allergy/AdvReac Type Severity Reaction Status Date / Time No Known Allergies Allergy Verified 01/02/25 10:16 Discharge Plan Disposition Patient Disposition: [facility] Condition: Fair Discharge Order Discharge Orders: Discharge Order (Routine); Ordered 01/06/25 Ordered By: Александр Sepulveda Follow up Plan Follow up with: Low Rodriguez MD [Staff Physician] - 1 month Josiah Cruz MD [Physician] - Enter time for follow up Prescriptions/Medication Reconciliation: New ipratropium-albuterol 0.5 mg-3 mg(2.5 mg base)/3 mL Solution For Nebulization 3 ml inhalation Q6RT 30 Days Qty: 180 0RF polyethylene glycol 3350 [HealthyLax] 17 gram Powder In Packet 17 g PO DAILY 30 Days Qty: 30 0RF oseltamivir [Tamiflu] 75 mg Capsule 75 mg PO BID 6 Days Qty: 12 0RF cefdinir 300 mg capsule 300 mg PO BID 2 Days Qty: 4 0RF Trelegy Ellipta 100-62.5-25 mcg blister with device 1 inh inhalation DAILY Qty: 60 0RF Continued amlodipine 5 mg tablet 5 mg PO DAILY 30 Days Qty: 30 0RF Other Ambulatory Orders: Home Medical Equipment (Routine) Location: None Selected Ordered By: Александр Sepulveda Problem Reconciliation Problems Reviewed?: Yes Patient Discharge Instructions ACTIVITY: Continue current activity DIET: continue same diet Patient Instructions: DI for Chronic Obstructive Pulmonary Disease, DI for Pneumonia -- Adult, DI for H1N1 Influenza -- Adult, DI for Respiratory Failure Print Language: Yi Providers Primary Care Provider: Provider,Referral Admit Provider: Ramiro Ellis Attending Provider: Ramiro Ellis
[2025-01-06 11:56] VITALS: BP 140/76; PULSE 86; RESP 18; TEMP 37.3; O2SAT 91
== END 2025-01-06 12:50 | DRG 190 ==
LOC: ER 07:40 → 2ND 09:26
PROVIDERS: Internal Medicine Pulmonary Disease; Admitting Provider Student in an Organized Health Care Education/Training Program; Emergency Provider Emergency Medicine; Visit Provider Student in an Organized Health Care Education/Training Program
DX: J44.1 Chronic obstructive pulmonary disease with (acute) exacerbation (principal); J96.21 Acute and chronic respiratory failure with hypoxia; J96.22 Acute and chronic respiratory failure with hypercapnia; J10.1 Influenza due to other identified influenza virus with other respiratory manifestations; E66.9 Obesity, unspecified; I10 Essential (primary) hypertension; G47.33 Obstructive sleep apnea (adult) (pediatric); H91.90 Unspecified hearing loss, unspecified ear; Z87.891 Personal history of nicotine dependence; Z77.22 Contact with and (suspected) exposure to environmental tobacco smoke (acute) (chronic); Z55.6 Problems related to health literacy; Z99.81 Dependence on supplemental oxygen; Z68.36 Body mass index [BMI] 36.0-36.9, adult
CPT/HCPCS: 36415; 71045; 80053; 80061; 82803; 82962; 83036; 83735; 83880; 84439; 84443; 84484; 85025; 85378; 85610; 85730; 86803; 87040; 87070; 87205; 87389; 87633; 93005; 94640; 94660; 94760; 94761; 97162; 97166; 97530; 97535; 99291; G0378; J0456; J0696; J1630; J1650; J1885; J2060; J2919; J3475; J7050; J7620

== ENCOUNTER 2025-05-26 14:20 | Outpatient (CLI) | payer MEDICARE, SELFPAY ==
--- OUTSIDE RECORDS SUMMARY | 2025-05-26 14:25 | XMS_ITS | Clinical Summary ---
Author Organization [facility] Address [address] [place] [address] Care Team Providers Care Traffic Manager Name Role Phone Pcp, No Primary Care Provider Unavailabl e Allergies No known active allergies Medications amLODIPine (Norvasc) 5 MG tablet Take 1 tablet (5 mg) by mouth 1 (one) time each day. 05/13/20 Active acetaminophen (Tylenol) 500 MG tablet Take 2 tablets (1,000 mg) by mouth every 6 (six) hours if needed for pain. 100 tablet 06/29/20 Active Additional Information Patient not taking.Reported on 07/15/2024 ibuprofen 400 MG tablet Take 1 tablet (400 mg) by mouth every 6 (six) hours if needed for moderate pain. 80 tablet 06/29/20 24 Active Additional Information Patient not taking.Reported on 07/15/2024 oxyCODONE (Roxicodone) 5 MG immediate release tablet Take 1 tablet (5 mg) by mouth every 6 (six) hours if needed for severe pain. 15 tablet 06/29/20 24 Active Additional Information Patient not taking.Reported on 07/15/2024 ondansetron ODT (Zofran-ODT) 4 MG disintegrating tablet Take 1 tablet (4 mg) by mouth every 6 (six) hours if needed for nausea or vomiting. 20 tablet 06/30/20 24 Active Additional Information Patient not taking.Reported on 07/15/2024 mupirocin (Bactroban) 2 % ointment Apply as directed (generally to the right ear twice daily after surgery following incision cleaning) 22 g 3 07/05/20 Active Additional Information Patient not taking.Reported on 07/15/2024 Active Problems Problem Noted Date Diagnosed Date Arthritis 07/15/2024 Cancer 07/15/2024 Overview (07/15/2024): right ear Dental disease 07/15/2024 Overview (07/15/2024): missing/chipped teeth HL (hearing loss) 07/15/2024 Overview (07/15/2024): bilateral Hypertension 07/15/2024 Squamous cell carcinoma of ear, 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 Family History Medical History Relation Name Comments Heart disease Mother Relation Name Status Comments Mother Social History Tobacco Use Types Packs/Day Years Used Date Smoking Tobacco: Never Smokeless Tobacco: Never Tobacco Cessation:Counseling Given: Not Answered Alcohol Use Standard Drinks/Week Comments Yes 0 (1 standard drink = 0.6 oz pur e alcohol) occasionally Sex and Gender Information Value Date Recorded Sex Assigned at Not on file Legal Sex Male 3:52 PM EDT Gender Identity Not on file Sexual Orientation Not on file Last Filed Vital Signs Vital Sign Reading Time Taken Comments Blood Pressure 163/74 07/15/2024 2:05 PM EDT Pulse 63 07/15/2024 2:05 PM EDT Temperature 36.6 C (97.8 F) 07/15/2024 2:05 PM EDT Respiratory Rate 16 07/15/2024 2:05 PM EDT Oxygen Saturation 94% 07/15/2024 2:05 PM EDT Inhaled Oxygen Concentration - - Weight 105 kg (231 lb 4.2 oz) 07/15/2024 2:05 PM EDT Height 172.7 cm (5' 8 ) 07/15/2024 2:05 PM EDT Body Mass Index 35.16 07/15/2024 2:05 PM EDT Plan of Treatment Health Maintenance Due Date Last Done Comments [facility]-Depression Screening 1960 [facility]-Hepatitis C Screening 1958 [facility]-Medicare Annual Wellness (AWV) 1960 [facility]-Infant/Child/Adol SDOH Screenings 1958 [id number] Vaccine (#1) 1963 [facility]- SDOH Screenings 1976 [facility]-Adult SDOH Screenings 1976 [facility]-DTaP,Tdap,and Td Vaccines (1 - Tdap) 1977 [facility]-Pneumococcal Vaccine: 50+ Years (1 of 2 - PCV) 1977 [facility]-Zoster Vaccines (1 of 2) 1977 CT Colonography 2003 Colonoscopy 2003 FIT-DNA 2003 FIT 2003 FOBT 2003 Sigmoidoscopy 2003 [facility]-Colorectal Cancer Screening 2003 [facility]-Influenza Vaccine (Season Ended) 2025 [facility]-RSV Vaccine: 60+ Years or (1 - 1-dose 75+ series) 2033 [facility]-Obesity Intervention Completed 024, 07/08/2024, 07/05/2024, Additional history exists HPV Vaccines Aged Out No longer eligi ble based on patient's age to complete this topic [facility]-HIB Vaccines Aged Out No longer e ligible based on patient's age to complete this topic [facility]-Hepatitis A Vaccines Aged Out No longer eligible based on patient's age to complete this topic UKY-IPV Vaccines Aged Out No longer e ligible based on patient's age to complete this topic [facility]Y-Rotavirus Vaccines Aged Out No lo nger eligible based on patient's age to complete this topic Insurance MEDICARE MEDICAID OUT OF STATE Advance Directives * Full Code (Latest Code Status on File) Date Activated Date Inactivated Comments 06/29/2024 3:33 PM 06/30/2024 2:12 PM Question Answer Comments Patient has decision-making capacity? Yes Care Teams Traffic Manager Relationship Specialty Start Date End Date Pcp, No [address] [place] [address] PCP - General Family Medicine 05/31/24
--- NOTE | 2025-05-26 14:30 | CT_ITS ---
FINAL REPORT CLINICAL HISTORY: lung cancer screening vapes, equ. to less than 1 ppd, 20 years copd COMPARISON: None FINDINGS: CT CHEST LOW DOSE SCREENING 63-year-old male, currently vapes, 30-kyno-pvmd history. HISTORY: Screening exam for lung cancer. DOSE: CTDI vol: 2.90 mGy, DLP: 96.38 mGy*cm TECHNIQUE: Axial CT without IV contrast administration using low dose protocol. This study was performed with techniques to keep radiation doses as low as reasonably achievable, (ALARA). Individualized dose reduction techniques using automated exposure control or adjustment of mA and/or kV according to the patient's size were employed. No acute lung disease is present. No pulmonary lesions are seen suspicious for neoplasm. Bibasilar scarring/atelectasis is present. No pleural or pericardial effusion is seen. No adenopathy or mass lesion is present. IMPRESSION: No evidence of lung cancer LUNG RADS CATEGORY 1 RECOMMENDATION: 12 month LDCT follow up Reviewed, Interpreted and Dictated by Raul Chen MD Transcribed by Yolis Busby Authenticated and [facility]
[2025-05-26 15:15] VITALS: PULSE 62; PULSE 64
[2025-05-26] MEDS: ALBUTEROL 0.083% 2.5 MG/3 ML NEB IH (15:15)
== END 2025-05-26 23:59 | disposition home or self-care (01) ==
LOC: RAD 14:21
PROVIDERS: PCP Family Medicine; Visit Provider Internal Medicine Pulmonary Disease
DX: J44.9 Chronic obstructive pulmonary disease, unspecified (principal); F17.210 Nicotine dependence, cigarettes, uncomplicated; Z12.2 Encounter for screening for malignant neoplasm of respiratory organs
CPT/HCPCS: 71271; 94060; 94618; 94640; 94726; 94729

== ENCOUNTER 2025-06-06 13:38 | Outpatient (CLI) | payer MEDICARE, SELFPAY ==
--- OUTSIDE RECORDS SUMMARY | 2025-06-08 13:41 | XMS_ITS | Clinical Summary ---
Author Organization [facility] Address [address] [place] [address] Care Team Providers Care Children Librarian Name Role Phone Pcp, No Primary Care [...] Wellness (AWV) 1960 [facility]-Infant/Child/Adol SDOH Screenings 1958 [id number] Vaccine (#1) 1963 [facility]- SDOH Screenings 1976 [facility]-Adult SDOH Screenings 1976 [facility]-DTaP,Tdap,and Td Vaccines (1 - Tdap) 1977 [facility]Y-Pneumococcal Vaccine: 50+ Years (1 of 2 - PCV) 1977 [facility]Y-Zoster Vaccines (1 of 2) 1977 CT Colonography 2003 Colonoscopy 2003 FIT-DNA 2003 FIT 2003 FOBT 2003 Sigmoidoscopy 2003 [facility]-Colorectal Cancer Screening 2003 [facility]-Influenza Vaccine (#1) 2025 [facility]-RSV Vaccine: 60+ Years or (1 [...] Patient has decision-making capacity? Yes Care Teams Children Librarian Relationship Specialty Start Date End Date Pcp, No [address] [place] [address] PCP - General Family Medicine 05/31/24
== END 2025-06-06 23:59 | disposition home or self-care (01) ==
LOC: LAB.DROPOF 06-08 13:39
PROVIDERS: PCP Family Medicine; Visit Provider Family Medicine
DX: M25.50 Pain in unspecified joint (principal)
CPT/HCPCS: 85651

== ENCOUNTER 2025-06-20 09:50 | Outpatient (CLI) | payer MEDICARE, SELFPAY ==
--- OUTSIDE RECORDS SUMMARY | 2025-06-21 12:27 | XMS_ITS | Clinical Summary ---
Author Organization [facility] Address [address] [place] [address] Care Team Providers Care House Nurse Name Role Phone Pcp, No Primary Care [...] Wellness (AWV) 1960 [facility]-Infant/Child/Adol SDOH Screenings 1958 [id number] Vaccine (#1) 1963 [facility]- SDOH Screenings 1976 [...] Patient has decision-making capacity? Yes Care Teams House Nurse Relationship Specialty Start Date End Date Pcp, No [address] [place] [address] PCP - General Family Medicine 05/31/24
== END 2025-06-20 23:59 | disposition home or self-care (01) ==
LOC: LAB.DROPOF 06-21 12:25
PROVIDERS: PCP Family Medicine; Visit Provider Family Medicine
DX: R39.9 Unspecified symptoms and signs involving the genitourinary system (principal)
CPT/HCPCS: 87086

== ENCOUNTER 2025-06-29 12:57 | Outpatient (CLI) | payer MEDICARE, SELFPAY ==
--- OUTSIDE RECORDS SUMMARY | 2025-06-29 13:01 | XMS_ITS | Clinical Summary ---
Author Organization [facility] Address [address] [place] [address] Care Team Providers Care Tobacco Warehouse Manager Name Role Phone Pcp, No Primary [...] Wellness (AWV) 1960 [facility]-Infant/Child/Adol SDOH Screenings 1958 [id number] Vaccine (#1) 1963 [facility]- SDOH Screenings 1976 [...] Patient has decision-making capacity? Yes Care Teams Tobacco Warehouse Manager Relationship Specialty Start Date End Date Pcp, No [address] [place] [address] PCP - General Family Medicine 05/31/24
--- NOTE | 2025-06-29 13:03 | XR_ITS ---
FINAL REPORT CLINICAL HISTORY: left flank pain, back pain COMPARISON: None FINDINGS: AP and lateral views of the lumbar spine were obtained. There is no prior exam for comparison. There is no acute fracture or malalignment. Vertebral body height is preserved. Multilevel degenerative disc disease is present. No acute paraspinal abnormality. IMPRESSION: Multilevel degenerative disc disease, with no acute osseous abnormality of the lumbar spine. Reviewed, Interpreted and Dictated by Kayce Zaman MD Transcribed by Yolis Busby Authenticated and [facility]
--- NOTE | 2025-06-29 14:00 | US_ITS ---
FINAL REPORT TECHNIQUE: Ultrasound images of the kidneys and bladder were obtained. CLINICAL HISTORY: .lt flank pain FINDINGS: The right kidney measures 11.8 cm in length. It is normal in echogenicity. There is no hydronephrosis. The left kidney measures 12.3 cm in length. It is normal in echogenicity. There is no hydronephrosis. IMPRESSION: Normal renal ultrasound. Reviewed, Interpreted and Dictated by Kayce Zaman MD Transcribed by Karen Marin Authenticated and [facility]
== END 2025-06-29 23:59 | disposition home or self-care (01) ==
LOC: RAD 12:59
PROVIDERS: PCP Family Medicine; Visit Provider Family Medicine
DX: M51.369 Other intervertebral disc degeneration, lumbar region without mention of lumbar back pain or lower extremity pain (principal); R10.9 Unspecified abdominal pain
CPT/HCPCS: 72100; 76770

== ENCOUNTER 2025-07-06 13:04 | Outpatient (CLI) | payer MEDICARE, MEDICAID, SELFPAY ==
[2025-07-05 08:41] VITALS: BMI 35.5
--- OUTSIDE RECORDS SUMMARY | 2025-07-06 13:07 | XMS_ITS | Clinical Summary ---
Author Organization [facility] Address [address] [place] [address] Care Team Providers Care Oyster Opener Name Role Phone Pcp, No Primary Care [...] Wellness (AWV) 1960 [facility]-Infant/Child/Adol SDOH Screenings 1958 [id number] Vaccine (#1) 1963 [facility]- SDOH Screenings 1976 [...] Patient has decision-making capacity? Yes Care Teams Oyster Opener Relationship Specialty Start Date End Date Pcp, No [address] [place] [address] PCP - General Family Medicine 05/31/24
--- NOTE | 2025-07-06 14:30 | ECG_ITS ---
APPROVED REPORT Exam: Resting ECG HR:64 bpm ECG Measurements Heart Rate 64 AXES UT 122 P 45 QRSd 98 QRS 74 QT 409 T 57 QTc 419 Conclusion SINUS RHYTHM WITH OCCASIONAL SUPRAVENTRICULAR PREMATURE COMPLEXES IN A BIGEMINAL PATTERN ABNORMAL RHYTHM ECG UNCONFIRMED REPORT Electronically signed by : Mohinder Steven MD 07/07/2025 09:00:05
[2025-07-06 14:43] LABS: Hematocrit 48.1 % (42.0-52.0); Hemoglobin 15.4 g/dL (14.1-18.0); Immature Granulocytes % 0.2 %; Mean Corpuscular HGB Conc 32.0 g/dL (31.8-35.4); Mean Corpuscular Hemoglobin 30.5 pg (27.0-31.2); Mean Corpuscular Volume 95.2 fl (80-94); Nucleated Red Blood Cells % 0 %; Platelet Count 219 K/mm3 (142-424); Red Blood Count 5.05 M/mm3 (4.60-6.20); Red Cell Distribution Width-SD 46.3 fL; White Blood Count 9.9 K/mm3 (4.8-10.8)
[2025-07-06 14:58] LABS: Anion Gap 15.7 mEq/L (5-15); Blood Urea Nitrogen 10 mg/dl (9-20); Calcium 9.1 mg/dl (8.4-10.2); Carbon Dioxide 23 mmol/L (22.0-30.0); Chloride 104 mmol/L (98-107); Creatinine Clearance Estimated 119 mL/min (50-200); Creatinine,Serum 0.80 mg/dl (0.66-1.25); Estimated Glomerular Filt Rate 97 ml/min (>60); GFR (African American) 117 ML/MIN (>60); Glucose 112 mg/dl (74-100); Potassium 4.7 mmoL/L (3.5-5.1); Sodium 138 mmol/L (136-145)
--- NOTE | 2025-07-07 10:07 | PC.NURSE ---
Cardiac clearance requested per Chacho Lou upon review of EKG. Appointment scheduled for 07/19 @7502. Office notified, case placed on hold. Patient notified, verbalized understanding.
== END 2025-07-06 23:59 | disposition home or self-care (01) ==
LOC: PREOP 13:05
PROVIDERS: PCP Family Medicine; Visit Provider Otolaryngology
DX: Z01.810 Encounter for preprocedural cardiovascular examination (principal); Z01.812 Encounter for preprocedural laboratory examination; I49.1 Atrial premature depolarization; R94.31 Abnormal electrocardiogram [ECG] [EKG]
CPT/HCPCS: 80048; 85025; 93005

== ENCOUNTER 2025-07-12 13:58 | Outpatient (RCR) | payer MEDICARE, MEDICAID, SELFPAY ==
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
== END 2025-07-12 23:59 | disposition home or self-care (01) ==
LOC: PT.CARL 13:58
PROVIDERS: Visit Provider Family Medicine
DX: M54.9 Dorsalgia, unspecified (principal)
CPT/HCPCS: 97110; 97163

== ENCOUNTER 2025-07-21 13:50 | Outpatient (RCR) | payer MEDICARE, MEDICAID, SELFPAY | END 2025-07-21 23:59 | disposition home or self-care (01) | LOC: PT.CARL 13:50 | PROVIDERS: Visit Provider Family Medicine | DX: I10 Essential (primary) hypertension (principal); M54.9 Dorsalgia, unspecified; H91.91 Unspecified hearing loss, right ear | CPT/HCPCS: 97542 ==

== ENCOUNTER 2025-07-26 09:29 | Outpatient (CLI) | payer MEDICARE, MEDICAID, SELFPAY ==
--- NOTE | 2025-07-26 | CA_ITS ---
APPROVED REPORT Exam: Pharmacologic Technologist: Nayely Skaggs Ht: 5 ft 8 in Wt: 252 lbs BSA: 2.25 m2 HR: 58 bpm BP: 162/76 mmHg Medical History Medications: Tizanidine Stress Test Details Test: Lexiscan Reason for pharmacologic stress test: physical limitation. HR Resting HR: 58 bpm Max Heart Rate (APMHR): 153.382234 bpm Max HR Achieved: 122 bpm Target HR (85% APMHR): 130.179540 bpm % of APMHR: 79.74 Recovery HR: 68 bpm BP Resting BP: 162.0/76.0 mmHg Max BP: 165.0/84.0 mmHg Recovery BP: 155.0/68.0 mmHg ECG Resting ECG: SR PAC/Atrial Bigeminy Stress ECG Conclusion Symptoms: Nausea. Arrhythmias/Ectopy: PAC/Atrial Bigeminy. ST-T Changes: Less than 0.5mm upsloping ST segment changes. Conclusion: Nondiagnostic ECG/Lexiscan. Electronically signed by : May Mesa MD 07/26/2025 18:23:25
--- NOTE | 2025-07-26 07:00 | NM_ITS ---
APPROVED REPORT Exam: Nuclear Stress Test Indication: htn, c.p., sob, ftigue Patient Location: Outpatient Stress Tech: Nayely Garcia MA Tech:KAYE Spence RT (R)(N)(M) Ht: 5 ft 8 in Wt: 260 lbs HR: 60 bpm BP: 162/76 mmHg BSA: 2.28 m2 TID: 1.23 BMI: 39.5 History: htn, c.p., sob, ftigue Procedure: Patient received 0.4 mg of intravenous Lexiscan, resting heart rate 60 bpm, resting blood pressure 162/76 mmHg, with Lexiscan maximum heart rate achieved was 70 bpm which is % of the maximum predicted heart rate and blood pressure was 165/84 mmHg. Cardiac Stress and Resting SPECT Images: Cardiac Stress and Resting SPECT images were obtained using technetium 99m Myoview 29.7 mCi stress and 9.84 mCi at rest. Resting and stress imaging in supine and prone positions demonstrate a medum-sized, moderate, predominantly reversible perfusion defects in the mid anterior LV wall, as well as the basal to mid inferior LV wood. There is increase in transient ischemic dilatation ratio (TID 1.23), which may be suggestive of multivessel disease or balanced ischemia. Gated imaging demonstrates mild reduction in LV systolic function. LVEF is calculated at 44%. Conclusion: Medum-sized, moderate, predominantly reversible perfusion defects in the mid anterior LV wall, as well as the basal to mid inferior LV wood. Findings are suggestive of partial reversible ischemia. There is increase in transient ischemic dilatation ratio (TID 1.23), which may be suggestive of multivessel disease or balanced ischemia. Gated imaging demonstrates mild reduction in LV systolic function. LVEF is calculated at 44%. Electronically signed by : May Mesa MD 07/26/2025 18:26:31
[2025-07-26] MEDS: SODIUM CHLORIDE 0.9% 10ML SYR (RAD ONLY) 10 ML IV ×2 (09:30→10:45)
--- NOTE | 2025-07-26 09:30 | CA_ITS ---
APPROVED REPORT EXAM: Comprehensive 2D, Doppler, and color-flow Echocardiogram Marketing Strategy Manager: Nadya Winn CRT Ht: 5 ft 8 in Wt: 252lbs BSA: 2.25 BP: 158/77 mmHg Indications: Pre-Op assessment skin cancer, smoker, sob, copd 2D Dimensions LA Volume 55.70 mL LA Volume Index 24.65 mL/m2 (M/F) 16-34 M-Mode Dimensions RVDd 2.38 cm (0.9-2.6) LA Diam 4.20 cm (1.9-4.0) LVDd 5.32 cm (3.5-5.7) LVDs 3.38 cm (3.5-5.7) IVSd 1.45 cm (0.6-1.1) PWd 1.15 cm (0.6-1.1) EF (Teich) 65.70% FS 36.50% EDV (Teich) 136.50 mL TAPSE 3.15 (<1.7) ESV (Teich) 46.80 mL LV Diastology E Decel Time 207 (160-240 msec) E/A Ratio 1.05 MED A' 11.90 cm/s LAT A' 11.70 cm/s Aortic Valve AO Peak GR. 8.50 mmHg Mitral Valve MV A Velocity 67.0 (40-130 cm/s) E/A Ratio 1.05 Pulmonary Valve PV Peak Velocity 112.0 (50-150 cm/s) Tricuspid Valve TR P. Velocity 220.00 cm/s RAP Estimate 10.00 mmHg RVSP 29.40 mmHg Left Ventricle The left ventricle is normal size. Left ventricular systolic function is normal. The left ventricular ejection fraction is within the normal range. There is increased left ventricular wall thickness. There is normal LV segmental wall motion. The left ventricular diastolic function is normal. LVEF is 55% Right Ventricle The right ventricle is normal size. The right ventricular systolic function is normal. Atria The left atrium is mildly dilated. The right atrium size is normal. There is no color Doppler evidence of interatrial shunt. Aortic Valve The aortic valve is mildly thickened. There is no hemodynamically significant aortic valvular stenosis. Trace aortic regurgitation is present. Mitral Valve The mitral valve is normal in structure. No evidence of mitral valve stenosis. Mild mitral regurgitation is present. Tricuspid Valve The tricuspid valve leaflets are thin and pliable. Trace tricuspid regurgitation. There is insufficient TR jet to estimate RVSP. Pulmonic Valve The pulmonary valve is grossly normal in structure. Trace pulmonic valve regurgitation is present. Great Vessels The aortic root is normal in size. IVC is normal in size and collapses >50% with inspiration. Pericardium There is no pericardial effusion. Other Information Study Quality: Fair Conclusion Normal biventricular systolic function. Mild LA dilation. Mild MR. Electronically signed by : May Mesa MD 07/26/2025 12:14:47
--- OUTSIDE RECORDS SUMMARY | 2025-07-26 09:33 | XMS_ITS | Clinical Summary ---
Author Organization [facility] Address [address] [place] [address] Care Team Providers Care Shipping/Receiving Manager Name Role Phone Pcp, No Primary [...] Wellness (AWV) 1960 [facility]-Infant/Child/Adol SDOH Screenings 1960 [id number] Vaccine (#1) 1963 [facility]- SDOH Screenings 1976 [...] Patient has decision-making capacity? Yes Care Teams Shipping/Receiving Manager Relationship Specialty Start Date End Date Pcp, No [address] [place] [address] PCP - General Family Medicine 05/31/24
[2025-07-26] MEDS: ISOTOPE MYOVIEW (PER STUDY) 1 DOSE IV (11:31)
== END 2025-07-26 23:59 | disposition home or self-care (01) ==
LOC: RAD 09:31
PROVIDERS: PCP Family Medicine; Visit Provider Nurse Practitioner
DX: Z01.810 Encounter for preprocedural cardiovascular examination (principal); I08.8 Other rheumatic multiple valve diseases; I11.9 Hypertensive heart disease without heart failure; I49.1 Atrial premature depolarization; C44.90 Unspecified malignant neoplasm of skin, unspecified; F17.200 Nicotine dependence, unspecified, uncomplicated; J44.9 Chronic obstructive pulmonary disease, unspecified; R94.39 Abnormal result of other cardiovascular function study
CPT/HCPCS: 78452; 93016; 93017; 93018; 93306; A9502; J2785

== ENCOUNTER 2025-08-17 11:21 | Day surgery (SDC) | payer MEDICARE, MEDICAID, SELFPAY ==
[2025-08-17] VITALS (13 sets, daily range): BP systolic 126–169; BP diastolic 57–90; PULSE 51–73; RESP 18–24; O2SAT 90–97; BMI 37.8
--- NOTE | 2025-08-17 07:10 | IR_ITS ---
APPROVED REPORT Patient Location: Outpatient [facility] [place]: Arash Fam, RT (R) PROCEDURES Left heart catheterization Left ventriculogram Selective coronary angiogram Intravascular ultrasound to the LAD Drug-eluting stent deployment to the proximal mid LAD INDICATION Coronary artery disease, Angina pectoris, Normal Myoview anterior ischemia, MLA 2.3 mm??? up over the mid LAD Informed consent was obtained prior to the procedure. COMPLICATIONS NONE Estimated Blood Loss: LESS THAN 10 ML TECHNIQUE One percent lidocaine used to anesthetize the right anterior aspect of the wrist. The right radial artery was accessed via the Seldinger technique. A 6 Spanish sheath was placed in the right radial artery. 2.5 mg of Verapamil, 800 mcg of nitroglycerin, 1mg Lidocaine and 5000 U Heparin were given through the arterial sheath. The JL3 catheter was also used to perform left heart catheterization, left ventriculogram and selective coronary angiogram. At the end of the diagnostic angiogram therapeutic heparin was administered giving a therapeutic ACT and the guide catheter was placed in left main artery followed by Choice PT extra-support wire placed into the LAD. Intravascular ultrasound probe was advanced in the proximal to mid LAD had a focal 2.3 mm??? severely stenotic heavily atherosclerotic plaque lesion. Because of this a 3 mm x 22 mm [place] frontier stent was deployed at 18 chato reducing the stenosis to 0%. SILVERIO II flow was present at the beginning of the procedure with SILVERIO-3 flow at the end of the procedure. At the end the procedure the apparatus was removed the sheath was removed and hemostasis was achieved using TR banding patient was transferred to the postop porting in stable condition ANGIOGRAPHIC RESULTS The left main artery Normal The left anterior descending artery As a focal 70 to 80% stenosis immediately adjacent to a large first diagonal artery The circumflex artery Nondominant yet still large with 30% stenosis and a large proximal second obtuse marginal artery The right coronary artery Dominant with diffuse 10% luminal regularities The SOMMERS ventriculogram reveals Normal 60% The left ventricular end-diastolic pressure 25 to 30 mmHg IMPRESSION Coronary artery disease as described above Successful stenting of the proximal to mid LAD severe disease distally 0% with 1 drug-eluting stent Normal ejection fraction Elevated LVEDP consistent with diastolic dysfunction PLAN 1. Dual antiplatelet therapy 2. LDL less than 55 to be achieved with high intensity statin 3. Avoidance of tobacco products 4. Cardiac rehabilitation 5. Treatment of hypertension Electronically signed by : Andrea Lindo MD 08/17/2025 12:36:38
--- NOTE | 2025-08-17 11:41 | SUR.PREOP ---
pt stated he does not take any home medications after questioned which medications he took recently. med list updated accordingly.
[2025-08-17 11:43] LABS: Hematocrit 45.4 % (42.0-52.0); Hemoglobin 15.5 g/dL (14.1-18.0); Immature Granulocytes % 0.3 %; Mean Corpuscular HGB Conc 34.1 g/dL (31.8-35.4); Mean Corpuscular Hemoglobin 31.5 pg (27.0-31.2); Mean Corpuscular Volume 92.3 fl (80-94); Nucleated Red Blood Cells % 0 %; Platelet Count 396 K/mm3 (142-424); Red Blood Count 4.92 M/mm3 (4.60-6.20); Red Cell Distribution Width-SD 45.0 fL; White Blood Count 9.3 K/mm3 (4.8-10.8)
[2025-08-17 11:54] LABS: Chloride 104 mmol/L (98-107); Potassium 3.7 mmoL/L (3.5-5.1); Sodium 140 mmol/L (136-145)
[2025-08-17 11:57] LABS: Anion Gap 8.7 mEq/L (5-15); Blood Urea Nitrogen 10 mg/dl (9-20); Carbon Dioxide 31 mmol/L (22.0-30.0); Creatinine Clearance Estimated 115 mL/min (50-200); Creatinine,Serum 0.80 mg/dl (0.66-1.25); Estimated Glomerular Filt Rate 96 ml/min (>60); GFR (African American) 117 ML/MIN (>60)
[2025-08-17] MEDS: HEPARIN 1,000 UNITS/ML 10ML VIAL (CATH LAB) 5000 UNIT IV ×2 (11:57→12:21)
[2025-08-17] MEDS: NITROGLYCERIN 800MCG/8ML SYR (CATH LAB) 800 MCG IA (11:57)
[2025-08-17] MEDS: HEPARIN 1,000 UNITS/500ML NS (CATH LAB) 3000 UNIT IV (11:57)
[2025-08-17] MEDS: LIDOCAINE 1% 10ML MDV 10 ML IJ (11:57)
[2025-08-17 11:58] LABS: Calcium 9.0 mg/dl (8.4-10.2); Glucose 111 mg/dl (74-100)
[2025-08-17] MEDS: 0.9 % SODIUM CHLORIDE 500 ML 25 ML IV (11:58)
[2025-08-17] MEDS: VERAPAMIL 2.5MG/ML 2ML VIAL 2.5 MG IV (11:58)
[2025-08-17] MEDS: FENTANYL 100MCG/2ML VIAL 50 MCG IV (12:32)
[2025-08-17] MEDS: MIDAZOLAM HCL 1MG/ML 5ML VIAL 1 MG IV (12:32)
--- NOTE | 2025-08-17 12:45 | SUR.PHASEII ---
no beta michel per md
[2025-08-17] MEDS: PRASUGREL 10MG TAB 60 MG PO (12:47)
[2025-08-17] MEDS: ASPIRIN EC 325MG TABLET 325 MG PO (12:48)
[2025-08-17 13:19] LABS: CATHL Activated Clotting Time 350 SEC (74-125)
== END 2025-08-17 15:20 | disposition home or self-care (01) ==
LOC: CATHLAB 11:22
PROVIDERS: PCP Family Medicine; Visit Provider Internal Medicine
PROC: 4A023N7 Measurement of Cardiac Sampling and Pressure, Left Heart, Percutaneous Approach (ICD-10-PCS; CPT 93452; principal; 2025-08-17 12:15)
DX: Z01.810 Encounter for preprocedural cardiovascular examination (principal); I25.119 Atherosclerotic heart disease of native coronary artery with unspecified angina pectoris; R94.39 Abnormal result of other cardiovascular function study; R06.09 Other forms of dyspnea; I10 Essential (primary) hypertension; H91.91 Unspecified hearing loss, right ear; R41.3 Other amnesia; Z79.02 Long term (current) use of antithrombotics/antiplatelets; Z79.82 Long term (current) use of aspirin; Z79.899 Other long term (current) drug therapy; F17.210 Nicotine dependence, cigarettes, uncomplicated
CPT/HCPCS: 80048; 85025; 85347; 92928; 92978; 93458; 99152; 99153; C1725; C1760; C1769; C1874; C9600; J1200; J1644; J3010; J7040

== ENCOUNTER 2025-08-25 11:47 | Outpatient (CLI) | payer MEDICARE, MEDICAID, SELFPAY ==
--- OUTSIDE RECORDS SUMMARY | 2025-08-25 11:51 | XMS_ITS | Clinical Summary ---
Author Organization [facility] Address [address] [place] [address] Care Team Providers Care Career Discovery Teacher Name Role Phone Pcp, No Primary Care Provider Unavailabl e Allergies No known active allergies Medications amLODIPine (Norvasc) 5 MG tablet Take 1 tablet (5 mg) by mouth 1 (one) time each day. 05/13/20 Active acetaminophen (Tylenol) 500 MG tablet Take 2 tablets (1,000 mg) by mouth every 6 (six) hours if needed for pain. 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 Yes Care Teams Career Discovery Teacher Relationship Specialty Start Date End Date Pcp, No [address] [place] [address] PCP - General Family Medicine 05/31/24
[2025-08-25 12:20] LABS: Hematocrit 47.2 % (42.0-52.0); Hemoglobin 15.2 g/dL (14.1-18.0); Immature Granulocytes % 0.2 %; Mean Corpuscular HGB Conc 32.2 g/dL (31.8-35.4); Mean Corpuscular Hemoglobin 30.2 pg (27.0-31.2); Mean Corpuscular Volume 93.8 fl (80-94); Nucleated Red Blood Cells % 0 %; Platelet Count 405 K/mm3 (142-424); Red Blood Count 5.03 M/mm3 (4.60-6.20); Red Cell Distribution Width-SD 45.4 fL; White Blood Count 8.5 K/mm3 (4.8-10.8)
[2025-08-25 12:52] LABS: Anion Gap 10.2 mEq/L (5-15); Blood Urea Nitrogen 13 mg/dl (9-20); Calcium 9.1 mg/dl (8.4-10.2); Carbon Dioxide 30 mmol/L (22.0-30.0); Chloride 99 mmol/L (98-107); Creatinine,Serum 0.70 mg/dl (0.66-1.25); Estimated Glomerular Filt Rate 112 ml/min (>60); GFR (African American) 136 ML/MIN (>60); Glucose 246 mg/dl (74-100); Potassium 4.2 mmoL/L (3.5-5.1); Sodium 135 mmol/L (136-145)
== END 2025-08-25 23:59 | disposition home or self-care (01) ==
LOC: LAB 11:49
PROVIDERS: PCP Family Medicine; Visit Provider Internal Medicine
DX: I25.10 Atherosclerotic heart disease of native coronary artery without angina pectoris (principal)
CPT/HCPCS: 36415; 80048; 85025

== ENCOUNTER 2025-09-26 08:43 | Day surgery (SDC) | payer MEDICARE, MEDICAID, SELFPAY ==
[2025-07-07 09:03] VITALS: BMI 39.5
--- NOTE | 2025-09-21 11:03 | SUR.PREOP ---
Spoke w/ Trace Amor who spoke to Dr. Bai. Per ok to proceed with surgery and instruct pt to hold his Effient the morning of procedure. Called and spoke w/ pt's contact and instructed him of Effient instructions, 0845 arrival time, NPO after midnight and necessity of responsible adult who can stay at hospital during procedure and drive patient home upon discharge.
[2025-09-26] VITALS (14 sets, daily range): BP systolic 116–169; BP diastolic 47–79; PULSE 60–84; RESP 14–18; TEMP 36.1–36.4; O2SAT 88–95; BMI 39.5
--- NOTE | 2025-09-26 09:57 | P.PNANES_ITS ---
[facility] Disclaimer: The information contained in this section may have been updated after the patient was seen, as this information can be updated by other users. Medical History CAD (coronary artery disease) Left flank pain Lesion of left pinna Lower lip carcinoma Earlobe lesion Lip lesion Daytime somnolence Witnessed episode of apnea Smoking greater than 30 pack years Hearing loss in right ear Impacted cerumen, left ear Skin lesion Pneumococcal meningitis Pneumonia Acute and chronic respiratory failure with hypercapnia Influenza A (H1N1) Skin lesion of left ear History of skin cancer Meningitis Skin lesion of right external ear Hypertension Surgical History History of thyroidectomy History of lymph node excision History of total splenectomy History of back surgery Family History Other No significant family history Social History Smoking Status: Current every day smoker second hand exposure: No alcohol intake: never substance use type: marijuana current occupational status: disabled Travel in the last 8 weeks?: Inside the [email or web address] housing: house lives independently: Yes marital status: Have you lived/traveled outside US in past 30 days?: No Contact w/someone who lives/traveled outside US past 30 days?: No Exposure to someone with infectious disease in past 14 days?: No Do you have a fever (greater than 100.4 F or 38 C)?: No Have you tested positive for COVID-19?: No Exposed to someone with COVID-19 in past 14 days?: No Do you have a sore throat?: No Do you have a cough?: No Do you have any weakness?: No Do you have any diarrhea?: No Are you experiencing any unusual bleeding?: No Do you have any muscle aches/pain?: No Do you have any abdominal pain?: No Are you experiencing loss of taste or smell?: No [facility] Anesthesia Checklist Patient Identification Patient Identification: Arm Band and Verbal (Name & ) Structural Data Admitted From: Home Planned Operative Procedure/s: Exicision of abnormal skin tissue on lip, ear, and cheek Consent for Planned Operative Procedure(s) Verified: Yes Verified Documents: Surgical Consent NPO Status Verified Time NPO: 00:00 Chart Verification Results Verified: ECG Additional verifications Anesthesia Reactions: No Hx Blood Transfusions: No Blood Transfusion Reaction: No Airway Assessment Mallampati Score:: Class II C-Spine Mobility Assessed: Yes TMJ Mobility Assessed: Yes Dentition: Poor Dentition Neurological Assessment Level of Consciousness: Awake, Alert and Appropriate Hx Seizures: No Numbness or tingling in extremities: No Anesthesia Plan Anesthesia Risk discussed: Yes Anesthesia Plan: Verified ASA Class: III Anesthesia Type: General
[2025-09-26] MEDS: LIDOCAINE 1% W/EPI 1:100,000 20ML VIAL 20 ML (10:25)
--- NOTE | 2025-09-26 11:45 | P.OP_ITS ---
Date of procedure: 09/26/25 Pre-op Diagnosis:: 1. Left pinna lesion status post prior excision for carcinoma 2. Left medial canthal lesion 3. Lower lip lesion biopsy positive for squamous cell carcinoma Post-op Diagnosis:: Same pathology pending, frozen section positive for deep margins on left pinna lesion Procedure performed:: 1. Left wedge excision of upper pinna with complex closure 2. Excision of left medial canthal lesion (12 mm) 3. Wedge excision of lower lip lesion with complex closure (15 mm) Surgeon:: Low Bai III, MD Shook Machine Operator(s):: None TEXTILES SALES REPRESENTATIVE:: Miguel Bess Anesthesia: GETA Estimated blood loss (mL): 50 Operative findings:: Lower lip lesion with ulcerative edges did not extend to the vermilion border Medial canthal lesion on the left Ulcerative lesion left skin of ear over conchal bowl Operative note:: The patient was brought to the operating placed under general endotracheal anesthesia. Pre and's injections of 1% lidocaine with epinephrine was injected into the midportion of the lower lip around the lesion. I also injected into the left medial canthal area around the smaller lesion. The last area addressed was the skin overlying the conchal cartilage of the left pinna. The areas were then prepared and draped in usual fashion. Began the dissection with a wedge excision of the lower lip extending down to the edge of the vermilion border. Once the wide excision of the central lesion was removed the incision was closed in multiple layers using a 5-0 Monocryl in subcutaneous layer followed by 4-0 Chromic Gut in the mucosal layer.. Margins were noted to be clear on frozen section. Then began the dissection on the left medial canthal area. He had a small exophytic lesion that was removed via elliptical excision measuring 12 mm. The skin was closed using 2 interrupted 5-0 fast absorbing chromic suture. Frozen section was noted to have clear margins as well. Then began the dissection on the fairly generous lesion on the skin of the pinna. Wide excision was marked out measuring approximately 2 cm x 8 mm wide I dissected down to the perichondrium and remove this portion of the skin. This was an area that had been previously excised and had recurrent inflammation. The frozen section was consistent with carcinoma at the depth of the incision. I therefore elected to proceed with a wedge excision including cartilage and skin in order to provide clear margins. Sharp dissection was used to remove this portion of the pinna. Any bleeding spots were then spot coagulated. Incision was closed initially with cartilage with a 4-0 silk suture in interrupted fashion once this was done 5-0 fast-absorbing gut was then used from the posterior portion of the pinna around the helical area and down to the Gabby bowl. Small area of the incision was left open for drainage purposes as the skin was quite taut secondary to the resection. Mupirocin ointment was then placed in the depths of the incision and around the area as well as the other surgical sites. Pressure dressing was applied to the ear. The patient was awakened in the operating room and taken recovery good condition estimated blood loss for all procedures is approximately 50 mL. Condition: stable Disposition: PACU Complications:: None
--- NOTE | 2025-09-26 11:48 | EXP.ANES.I ---
[facility] Anesthesia Record Part I Anesthesia Record I Intake, IV Amount: 600 Hydration: Adequate Estimated blood loss (mL): 25 Urine output (mL): 0 Blood Products used (#): none Blood Pressure: 142/56 SaO2: 95 Pulse Rate: 73 Airway Patency: Patent Respiratory Rate: 14 Temperature: 97.0 F Patient is:: Mask O2 and Stable Stable to PACU at:: 11:36
[2025-09-26] MEDS: KETOROLAC 30MG/ML VIAL 30 MG IV (12:12)
[2025-09-26] MEDS: HYDROMORPHONE 2MG/ML SYRINGE 0.5 MG IV (12:20)
--- NOTE | 2025-09-26 12:35 | SUR.PHASEI ---
1226- detailed report given to jaqueline millan in post op.
--- NOTE | 2025-09-26 13:47 | SUR.PHASEII ---
called dr loyd office to discuss dispo. updated dr loyd that pt has been unable to wean off oxygen post op. pt has an o2 sat of 86% on room air. on 2-3L NC pt is between 88-89%. pt does have o2 that he wears at home at night r/t sleep apnea/copd. dr loyd instructed that when pt goes home, wear continuos o2, monitor o2 levels and sleep upright. educated pt and visitor on dc instructions.
== END 2025-09-26 14:20 | disposition home or self-care (01) ==
PROVIDERS: PCP Family Medicine; Visit Provider Otolaryngology
PROC: (CPT 11642; principal; 2025-09-26 10:15)
DX: D04.0 Carcinoma in situ of skin of lip; D04.122 Carcinoma in situ of skin of left lower eyelid, including canthus; C44.219 Basal cell carcinoma of skin of left ear and external auricular canal
CPT/HCPCS: 11642; 40510; 69145; 88305; 88333; 96374; J1100; J1171; J1885; J2003; J2004; J2405; J2704; J3010

== ENCOUNTER 2025-10-12 08:23 | Outpatient (CLI) | payer MEDICARE, MEDICAID, SELFPAY ==
--- NOTE | 2025-10-12 08:27 | XR_ITS ---
FINAL REPORT CLINICAL HISTORY: night sweats copd FINDINGS: No acute pulmonary density is evident. There is no evidence of effusion or other pleural disease. The mediastinum has a normal appearance. The cardiac silhouette is unremarkable. IMPRESSION: Unremarkable chest exam. Reviewed, Interpreted and Dictated by Raul Chen MD Transcribed by Karen Marin Authenticated and [facility]
--- OUTSIDE RECORDS SUMMARY | 2025-10-12 08:31 | XMS_ITS | Clinical Summary ---
Author Organization [facility] Address [address] [place] [address] Care Team Providers Care [employer] Special Ed Teacher Name Role Phone Pcp, No Primary [...] Wellness (AWV) 1960 [facility]-Infant/Child/Adol SDOH Screenings 1960 [id number] Vaccine (#1) 1963 [facility]- SDOH Screenings 1976 [...] Patient has decision-making capacity? Yes Care Teams [employer] Special [employer] Teacher Relationship Specialty Start Date End Date Pcp, No [address] [place] [address] PCP - General Family Medicine 05/31/24
[2025-10-12 10:15] LABS: Alanine Aminotransferase 28 U/L (12-78); Albumin Level 4.0 g/dl (3.5-5.0); Albumin/Globulin Ratio 1.3 (1.1-1.8); Alkaline Phosphatase 100 U/L (38-126); Anion Gap 9.6 mEq/L (5-15); Aspartate Amino Transferase 24 U/L (17-59); Bilirubin,Total 0.5 mg/dl (0.2-1.3); Blood Urea Nitrogen 12 mg/dl (9-20); Calcium 9.3 mg/dl (8.4-10.2); Carbon Dioxide 26 mmol/L (22.0-30.0); Chloride 104 mmol/L (98-107); Creatinine,Serum 0.60 mg/dl (0.66-1.25); Estimated Glomerular Filt Rate 134 ml/min (>60); GFR (African American) 163 ML/MIN (>60); Globulin 3.0 g/dL (1.3-3.2); Glucose 237 mg/dl (74-100); Potassium 4.6 mmoL/L (3.5-5.1); Sodium 135 mmol/L (136-145); Total Protein,Serum 7.0 g/dl (6.3-8.2)
[2025-10-12 10:20] LABS: C-Reactive Protein 6.5 mg/L (0-4)
[2025-10-12 10:31] LABS: T4 (Thyroxine) 9.8 ug/dl (5.53-11.0)
[2025-10-12 10:44] LABS: Thyroid Stimulating Hormone 0.20 uIU/mL (0.465-4.68)
[2025-10-12 11:28] LABS: Uric Acid 3.7 mg/dl (3.5-8.5)
[2025-10-12 14:38] LABS: Hematocrit 46.4 % (42.0-52.0); Hemoglobin 14.8 g/dL (14.1-18.0); Immature Granulocytes % 0.6 %; Mean Corpuscular HGB Conc 31.9 g/dL (31.8-35.4); Mean Corpuscular Hemoglobin 30.5 pg (27.0-31.2); Mean Corpuscular Volume 95.5 fl (80-94); Nucleated Red Blood Cells % 0 %; Platelet Count 445 K/mm3 (142-424); Red Blood Count 4.86 M/mm3 (4.60-6.20); Red Cell Distribution Width-SD 45.7 fL; White Blood Count 17.0 K/mm3 (4.8-10.8)
[2025-10-12 16:05] LABS: Total Cells Counted 100
[2025-10-12 16:06] LABS: Anisocytosis 1+; Burr Cells 1+; Giant Platelets 1+; Macrocytosis 1+; Microcytosis 1+; Poikilocytosis 1+; Target Cells 1+; Tear Drop Cells 1+
[2025-10-12 17:01] LABS: Hemoglobin A1C 6.3 % (4.0-6.0)
[2025-10-13 12:23] LABS: RA Latex Turbid. <10.0 IU/mL (<14.0)
[2025-10-14 18:10] LABS: Antinuclear Antibodies, IFA Negative (.)
== END 2025-10-12 23:59 | disposition home or self-care (01) ==
PROVIDERS: PCP Family Medicine; Visit Provider Family Medicine
DX: M25.50 Pain in unspecified joint (principal); R61 Generalized hyperhidrosis; R73.09 Other abnormal glucose
CPT/HCPCS: 36415; 71046; 80053; 83036; 84436; 84443; 84550; 85007; 85025; 85651; 86038; 86140; 86225; 86235; 86431; 86480

== ENCOUNTER 2025-11-10 13:04 | Emergency (ER) | payer MEDICARE, MEDICAID, SELFPAY ==
[2025-11-10 13:20] VITALS: BP 152/63; PULSE 69; RESP 20; TEMP 36.5; O2SAT 96; BMI 39.5
[2025-11-10 13:33] VITALS: BP 152/63; PULSE 69; RESP 20; TEMP 36.5; O2SAT 96
--- NOTE | 2025-11-10 13:52 | XR_ITS ---
FINAL REPORT TECHNIQUE: 3 views right knee CLINICAL HISTORY: injury two weeks ago COMPARISON: None FINDINGS: RIGHT KNEE: 3 images of the right knee were obtained. There is no evidence of fracture or dislocation. The joint spaces are intact. Sharpening of the tibial spines is present. No joint effusion is identified. IMPRESSION: Small joint effusion, with no acute bony abnormality. Reviewed, Interpreted and Dictated by Robert Aguirre MD Transcribed by Yolis Busby Authenticated and [facility]
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
--- NOTE | 2025-11-10 14:15 | CT_ITS ---
FINAL REPORT TECHNIQUE: Thin section axial CT images with coronal and sagittal reformats were performed. This study was performed with techniques to keep radiation doses as low as reasonably achievable (ALARA). Individualized dose reduction techniques using automated exposure control or adjustment of mA and/or kV according to the patient''s size were employed. CLINICAL HISTORY: difficulty ambulating, equivocal XR FINDINGS: There is mild narrowing of the medial and lateral compartment joint spaces. Tiny osteophytes are seen along the undersurface of the patella. No definite acute fractures identified. There is a small joint effusion. IMPRESSION: Mild hypertrophic changes of osteoarthritis. Reviewed, Interpreted and Dictated by Robert Aguirre MD Transcribed by Karen Marin Authenticated and [facility]
[2025-11-10 15:27] VITALS: BP 152/63; PULSE 69; RESP 20; TEMP 36.5; O2SAT 96
== END 2025-11-10 15:28 | disposition home or self-care (01) ==
PROVIDERS: Emergency Provider Student in an Organized Health Care Education/Training Program; PCP Family Medicine
DX: S80.01XA Contusion of right knee, initial encounter (principal); M25.561 Pain in right knee; W22.8XXA Striking against or struck by other objects, initial encounter
CPT/HCPCS: 73562; 73700; 99283; 99284